=== PATIENT | male | born 1945 | race Caucasian/White ===

== ENCOUNTER 2022-04-15 11:56 | Outpatient (REF) | payer BC, SELFPAY ==
[2022-04-15 13:47] LABS: SARS PCR* Negative SARS-CoV-2 (Negative)
== END 2022-04-15 11:57 | disposition home or self-care (01) ==
LOC: NPINS 11:56
PROVIDERS: PCP Family Medicine; Visit Provider Podiatrist
DX: Z20.822 Contact with and (suspected) exposure to COVID-19 (principal)
CPT/HCPCS: 87635

== ENCOUNTER 2022-04-18 07:50 | Day surgery (SDC) | payer BC, SELFPAY ==
[2022-04-18 08:18] VITALS: BMI 40.1
[2022-04-18] MEDS: SODIUM CHLORIDE 0.9 % (FLUSH) 10 ML SYRINGE IVF (08:35)
[2022-04-18] MEDS: LACTATED RINGERS 1000 ML 1,000 ML 100 ML IV (08:35)
[2022-04-18 08:39] VITALS: BP 108/74; PULSE 60; RESP 16; TEMP 37.1; O2SAT 96
[2022-04-18] MEDS: BUPIVACAINE 0.5% 30 ML INJECTION (10:00)
[2022-04-18] MEDS: CEFAZOLIN 2 GM INJ IVP (10:02)
--- NOTE | 2022-04-18 10:34 | PM.GSPRC ---
Operative Note Date of procedure: 04/18/22 Type of Procedure: 1. Excision of soft tissue mass left foot 2. Excision of soft tissue mass left great toe Procedure Description: Preoperative diagnosis: Soft tissue mass left foot x2 Postoperative diagnosis: Soft tissue mass left foot x2 After discussing the risks and benefits of the procedure, the patient signed informed consent.? The operative site was marked and the patient was brought to the operating room and placed on the operating table in supine position.? Care was taken to pad the patient's pressure points.?? The patient was then given sedation by anesthesia. 30 mL 0.5% Marcaine plain was injected into the left foot.?? The operative site was then prepped and draped in the usual sterile fashion.? A time-out was then performed. Left foot was exsanguinated and the tourniquet inflated. Linear incision is made over the plantar medial aspect of 1st metatarsal head. Incision was carried down through skin subcutaneous tissues. Blunt dissection was carried down to the mass. The mass appeared to be well encapsulated and was from surrounding tissues. Mass sent to pathology in formalin and measured 2 cm x 1.5 cm x 1 cm. Wound was thoroughly irrigated with normal sterile saline. Incision was closed with 3-0 nylon. Linear incision is made over the plantar medial aspect of the IPJ of the hallux. Incision was carried down through skin subcutaneous tissues. Blunt dissection was carried down to the mass. The mass appeared to be well encapsulated and was from surrounding tissues. Mass was sent to pathology in formalin and measured 1 cm x 1 cm x 1 cm. Wound was thoroughly irrigated with normal sterile saline. Incision was closed with 3-0 nylon. Sterile dressings were then applied. Tourniquet was released and normal cap refill time returned to all digits. The patient was then woken and transported to the recovery area in stable condition. He tolerated the procedure and anesthesia well. He will be discharged per Anesthesia. He was given both written and verbal postop instructions. He is given [place] for pain. He is to use a walker with weight-bearing as tolerated to the left foot shifting weight laterally. To follow-up in 2 days. ? Findings: Soft tissue mass x2 sent to pathology. Anesthesia: MAC and local Surgeon: Kevin Moreno DPM Estimated blood loss (mL): 2 Condition: stable Disposition: same day
[2022-04-18 10:35] VITALS: BP 113/70; PULSE 60; RESP 16; TEMP 36.3; O2SAT 95
--- NOTE | 2022-04-18 10:41 | W.ANESCHARGE ---
Anesthesia Charges Start Date/Time Anesthesia Start Date: 04/18/22 Anesthesia Start Time: 09:43 Stop Date/Time Anesthesia Stop Date: 04/18/22 Anesthesia Stop Time: 10:38 Summary Emergency: No Extremes of Age: Over 70-CPT 66324
--- NOTE | 2022-04-18 10:46 | W.ANESCHARGE ---
Anesthesia Charges Start Date/Time Anesthesia Start Date: 04/18/22 Anesthesia Start Time: 09:43 Stop Date/Time Anesthesia Stop Date: 04/18/22 Anesthesia Stop Time: 10:38 Summary Emergency: No Extremes of Age: Over 70-CPT 41027
[2022-04-18 10:51] VITALS: BP 111/69; PULSE 55; RESP 16; O2SAT 93
[2022-04-18 11:00] VITALS: BP 129/70; PULSE 56; RESP 16; O2SAT 93
[2022-04-18 11:15] VITALS: BP 114/71; PULSE 52; RESP 16; O2SAT 95
[2022-04-18 11:30] VITALS: PULSE 54; RESP 16; O2SAT 99
== END 2022-04-18 11:35 | disposition home or self-care (01) ==
PROVIDERS: PCP Family Medicine; Visit Provider Podiatrist
PROC: (CPT 28039; principal; 2022-04-18 09:00)
DX: M06.372 Rheumatoid nodule, left ankle and foot (principal)
CPT/HCPCS: 28039 ×2; 01470; 88305; 99100; J0690; J2250; J2704; J3010; J3490; J7120

== ENCOUNTER 2023-08-22 09:55 | Emergency (ER) | payer BC, SELFPAY ==
[2023-08-22] VITALS (13 sets, daily range): BP systolic 99–149; BP diastolic 72–93; PULSE 70–81; RESP 14–32; TEMP 36.8; O2SAT 93–98; BMI 36.9
--- NOTE | 2023-08-22 10:46 | PC.NURSE ---
pt had three teeth extracted on , last night began having severe chills, right groin pain that hurt to roll over or move in bed. history of quadruple bypass, stents. right leg unable to move without pain, tender to palpate/push on right groin. Pt also states he began having intermittent, nonproductive cough.
--- NOTE | 2023-08-22 10:49 | PC.NURSE ---
pt denies chest pain or shortness of breath. right hip/groin pain increased pain with any movement, rotation, pt has RA. Denies injury.
--- NOTE | 2023-08-22 10:50 | CRLHL7_ITS ---
For Patients: As a result of the Cures Act, medical imaging exams and procedure reports are released immediately into your electronic medical record. You may view this report before your referring provider. If you have questions, please contact your health care provider. Indication: Hip pain Technique: Pelvis and right hip 2 views Comparison: None Findings: Joint space narrowing and spurring of both hips, right greater than left. No fracture. Vascular calcifications. No suspicious intrinsic lesion. Mild degenerative changes SI joints. Degenerative changes lower lumbar spine. Impression: Moderate degenerative joint disease right hip. No acute fracture. Dictated by Andrew Boles MD @ 08/22/2023 11:41:56 AM (Electronically Signed)
--- NOTE | 2023-08-22 10:51 | ED_ITS ---
HPI - General Adult General Date Seen: 08/22/23 Chief complaint: Groin Pain Stated complaint: chills, right leg pain/weakness Time Seen by Provider: 08/22/23 10:36 Source: patient and family Mode of arrival: wheelchair Limitations: no limitations History of Present Illness HPI narrative: Patient is the 78-year-old gentleman who presents here for right groin pain. He says he can not even roll over in the bed, he has trouble bearing weight on his right side is brought in by wheelchair, he had some chills last night, he called his dentist, as he had 3 tooth extractions done a week ago, he thought possibly this was from this. Least the chills. His dentist did not think so in wanted him evaluated. He describes no overt fever, the right hip pain he has had for some time, although it seems worse today. He has never been told that he has an issue with his hip her back, has multiple medical issues however including: Heart disease, previous CABG with stents. Rheumatoid arthritis, hypertension Treatments prior to arrival: none Related Data Home Medications Medication Instructions Recorded Confirmed ascorbic acid (vitamin C) 500 mg 500 mg PO DAILY 04/15/22 08/22/23 capsule,extended release (Vitamin C) aspirin 81 mg chewable tablet 81 mg PO DAILY 04/15/22 08/22/23 carboxymethylcellulose sodium 0.5 1 - 2 drp ophthalmic (eye) DAILY 04/15/22 08/22/23 % eye drops (Refresh Tears) clopidogrel 75 mg tablet (Plavix) 75 mg PO DAILY 04/15/22 08/22/23 folic acid 800 mcg tablet 800 mcg PO DAILY 04/15/22 08/22/23 furosemide 20 mg tablet (Lasix) 20 mg PO DAILY 04/15/22 08/22/23 gabapentin 100 mg capsule 200 mg PO QHS 04/15/22 08/22/23 (Neurontin) hydroxychloroquine 200 mg tablet 400 mg PO DAILY 04/15/22 08/22/23 (Plaquenil) lisinopril 2.5 mg tablet 2.5 mg PO DAILY 04/15/22 08/22/23 methotrexate sodium 2.5 mg tablet 12.5 mg PO 2XW 04/15/22 08/22/23 metoprolol tartrate 25 mg tablet 12.5 mg PO BID 04/15/22 08/22/23 nitroglycerin 0.4 mg sublingual 0.4 mg sublingual Q5-15M PRN 04/15/22 08/22/23 tablet rosuvastatin 20 mg tablet (Crestor) 20 mg PO DAILY 04/15/22 08/22/23 vitamin A-vitamin C-vit E-min 1 tab PO BID 04/15/22 08/22/23 tablet vitamin E mixed 400 unit capsule 400 unit PO DAILY 04/15/22 08/22/23 Previous Rx's Medication Instructions Recorded amoxicillin 875 mg-potassium 1 tab PO BID #20 tabs 08/22/23 clavulanate 125 mg tablet oxycodone-acetaminophen 5 mg-325 1 tab PO TID PRN pain #14 tabs 08/22/23 mg tablet Allergies Allergy/AdvReac Type Severity Reaction Status Date / Time leflunomide Allergy Diarrhea Verified 04/18/22 08:06 Review of Systems Status of ROS: Reports: 10 or more systems reviewed and unremarkable except as noted in History and below [facility] Medical History NSTEMI (non-ST elevated myocardial infarction) ?I21.4 - Non-ST elevation (NSTEMI) myocardial infarction (ICD-10) Class 3 severe obesity due to excess calories with body mass index (BMI) of 40.0 to 44.9 in adult ?E66.01 - Morbid (severe) obesity due to excess calories (ICD-10) ?Z68.41 - Body mass index [BMI] 40.0-44.9, adult (ICD-10) Pyelonephritis ?N12 - Tubulo-interstitial nephritis, not specified as acute or chronic (ICD- 10) Sensorineural hearing loss (SNHL) of both ears ?H90.3 - Sensorineural hearing loss, bilateral (ICD-10) Impaired fasting glucose ?R73.01 - Impaired fasting glucose (ICD-10) Rheumatoid arthritis ?M06.9 - Rheumatoid arthritis, unspecified (ICD-10) CORY (obstructive sleep apnea) ?G47.33 - Obstructive sleep apnea (adult) (pediatric) (ICD-10) Degenerative joint disease of left knee ?M17.12 - Unilateral primary osteoarthritis, left knee (ICD-10) CAD (coronary artery disease) ?I25.10 - Atherosclerotic heart disease of [place] coronary artery without angina pectoris (ICD-10) Edema ?R60.9 - Edema, unspecified (ICD-10) Radial styloid tenosynovitis ?M65.4 - Radial styloid tenosynovitis [[place]] (ICD-10) Lumbago ?M54.50 - Low back pain, unspecified (ICD-10) Unspecified sleep apnea ?G47.30 - Sleep apnea, unspecified (ICD-10) Other and unspecified hyperlipidemia ?E78.5 - Hyperlipidemia, unspecified (ICD-10) Unspecified essential hypertension ?I10 - Essential (primary) hypertension (ICD-10) Surgical History Hx of colonoscopy ?Z98.890 - Other specified postprocedural states (ICD-10) Hx of coronary artery bypass graft ?Z95.1 - Presence of aortocoronary bypass graft (ICD-10) Social History Smoking Status: Former smoker What tobacco products do you use: cigarettes Smoking packs per day: 1.5 Smoking cigarettes per day: 30.0 Years smoked: 35 Smoking pack-years: 52.50 Smoking quit date/years: >15 years ago and pipe Do you use any of these nicotine containing products: None How often do you have a drink containing alcohol: monthly or less Alcohol type: beer and wine How many standard drinks containing alcohol do you have on a typical day: 1 or 2 How often do you have six or more drinks on one occasion: Never AUDIT-C Alcohol total score: 1 Non-prescribed substance use: denies use Caffeine: Yes (RARE) service: No Exam Narrative: Exam Narrative: Patient is the resting in room a, he appears to be in no distress, little hard hearing, large with an elevated BMI. His right hip, with any sort of flexion, or internal external rotation causes him to cry out in pain, his right inguinal crease shows no masses, there is no hernias, he does have some yeast dermatitis, no testicular pain, masses, notable. He has no pain on palpation of his abdominal region, his right lower quadrant, or on his right flank region. Chest is good air entry bilaterally with no wheezes crackles noted his heart sounds are normal. TMs are normal, his oropharynx is normal. There are holes were he has had tooth extraction on his left upper molars. They appear to be healing well, with really no pain around there. Const: Vital Signs, click to edit/add: Vital Signs - 24 hr 08/22/23 10:24 08/22/23 11:34 08/22/23 11:45 Temperature 98.2 F Pulse Rate 74 75 Pulse Rate [Pulse Oximeter] 81 Respiratory Rate 32 H Blood Pressure Blood Pressure [Ri ght Forearm] 99/72 Pulse Oximetry 95 94 95 Oxygen Delivery Me thod Room Air 08/22/23 12:00 08/22/23 12:15 08/22/23 12:30 Temperature Pulse Rate 71 71 73 Pulse Rate [Pulse Oximeter] Respiratory Rate Blood Pressure Blood Pressure [Ri ght Forearm] Pulse Oximetry 93 97 97 Oxygen Delivery Me thod 08/22/23 12:51 08/22/23 12:52 08/22/23 13:00 Temperature Pulse Rate 75 71 Pulse Rate [Pulse Oximeter] Respiratory Rate 14 Blood Pressure 149/91 H Blood Pressure [Ri ght Forearm] Pulse Oximetry 98 97 Oxygen Delivery Me thod 08/22/23 13:15 08/22/23 13:30 08/22/23 13:45 Temperature Pulse Rate 70 72 73 Pulse Rate [Pulse Oximeter] Respiratory Rate Blood Pressure Blood Pressure [Ri ght Forearm] Pulse Oximetry 96 96 98 Oxygen Delivery Me thod Course Course ED Course: He is given a small amount of morphine IV, he reports to me the pain was a lot better he was able to ambulate with his walker to the bathroom with no problems at all. This is his normal state. I was able to move his right hip around with less pain.. I did consider other alternative diagnosis yes is a septic right hip, and also epidural abscess, or deep pelvic abscess, along with inguinal hernia. He does have the known rheumatoid arthritis, and his is CRP could always be elevated although 17 seems a little bit more than it should. I discussed with him in with shared decision making they would like to try some antibiotics, went over the risks benefits side effects of this, Augmentin will be prescribed, I do suggest that we stopped his methotrexate while he is on this. As there is an interaction between the penicillin based on the methotrexate. I also give him a small supply of narcotic medication they can use. And have him follow up with his sports physician Dr. Garcia for recheck and consideration of either cortisone injection or formal follow-up with orthopedics. They were comfortable this plan , we went over signs and symptoms of worsening, and they will follow-up with these occur. Vital Signs Vital signs: Initial Vital Signs Temperature 98.2 F 08/22/23 10:24 Temperature Source Temporal Artery Scan 08/22/23 10:24 Pulse Rate 81 08/22/23 10:24 Pulse Rhythm Regular 08/22/23 10:24 Respiratory Rate 32 H 08/22/23 10:24 Blood Pressure 99/72 08/22/23 10:24 Blood Pressure Mean 81 08/22/23 10:24 Blood Pressure Position Sitting 08/22/23 10:24 Pulse Oximetry 95 08/22/23 10:24 Oxygen Delivery Method Room Air 08/22/23 10:24 Vital Signs Temperature 98.2 F 08/22/23 10:24 Pulse Rate 81 08/22/23 10:24 Respiratory Rate 32 H 08/22/23 10:24 Blood Pressure 99/72 08/22/23 10:24 Pulse Oximetry 95 08/22/23 10:24 Oxygen Delivery Method Room Air 08/22/23 10:24 Temperature 98.2 F 08/22/23 10:24 Pulse Rate 73 08/22/23 13:45 Respiratory Rate 14 08/22/23 13:00 Blood Pressure 149/91 H 08/22/23 12:51 Pulse Oximetry 98 08/22/23 13:45 Oxygen Delivery Method Room Air 08/22/23 10:24 Medications Administered Medications: Discontinued Medications Generic Name Dose Route Start Last Admin Trade Name Freq PRN Reason Stop Dose Admin Morphine Sulfate 4 mg 08/22/23 11:05 08/22/23 11:40 Morphine 4 Mg/Ml Inj IVP 08/22/23 11:06 4 mg ONCE ONE Administration Medical Decision Making MDM Narrative Medical decision making narrative: I discussed with the patient, him a little concerned about the chills, I am not so concerned about the right hip, as this seems to be acute on chronic issue. Possibilities of septic hip are entertained however. I do think we should get some x-rays of his right hip, and then also the blood cultures, and a workup for his chills. His initial blood pressure was on the low side. But then I did note that his blood pressure when I came in the room was 150 on 100. Lab Data Lab results reviewed: Yes I reviewed the patient's lab results Labs: Lab Results 08/22/23 08/22/23 08/22/23 Range/Units 11:34 12:50 Unknown WBC 13.36 H (4.50-11.00) K/uL RBC 4.08 L (4.30-5.90) m/uL Hgb 13.0 L (13.5-17.5) gm/dL Hct 38.1 (37.0-53.0) % MCV 93 (80-100) fL MCH 32 (26-34) pg MCHC 34 (32-36) gm/dL RDW Coeff of Tim 15.4 (11.5-15.5) % Plt Count 255 (140-440) K/uL Neut % (Auto) 81.4 H (42.0-72.0) % Lymph % (Auto) 6.2 L (20-44) % Sch[place] % (Auto) 12.0 H (0.0-11.0) % Eos % (Auto) 0.0 (0.0-7.0) % Baso % (Auto) 0.1 (0.0-3.0) % Neut # (Auto) 10.90 H (1.7-7.0) K/uL Lymph # (Auto) 0.80 L (0.90-2.90) K/uL Sch[place]icher # (Auto) 1.60 H (0.00-0.90) K/UL Eos # (Auto) 0.00 (0.00-0.50) K/uL Baso # (Auto) 0.00 (0.00-0.30) K/uL Abs Immat Gran (auto) 0.00 (0.00-0.30) K/uL Imm/Tot Granulo (auto) 0.3 % Sodium 136 (135-149) mmol/L Potassium 4.0 (3.6-5.1) mmol/L Chloride 104 (96-114) mmol/L Carbon Dioxide 21 (20-32) mmol/L Anion Gap 11 (7-15) mEq/L BUN 12 (7-30) mg/dL Creatinine 0.7 (0.5-1.5) mg/dL Estimated Creat Clear 60.88 Estimated GFR 94 ml/min Glucose 158 H (60-115) mg/dL Lactate 1.1 (0.5-1.9) mmol/L Calcium 9.3 (8.4-10.6) mg/dL C-Reactive Protein 17.1 H (0.5-1.0) mg/dL Procalcitonin 0.53 H (<0.50) ng/mL Urine Color Yellow (Yellow) Urine Appearance Clear (Clear) Urine pH 6.0 (5.0-8.5) Ur Specific [place] 1.025 (1.000-1.030) Urine Protein 1+ A (Negative) Urine Glucose (UA) Negative (Negative) Urine Ketones Negative (Negative) Urine Blood Negative (Negative) Urine Nitrite Negative (Negative) Urine Bilirubin Negative (Negative) Urine Urobilinogen 1.0 (0.2-1.0) Ur Leukocyte Esterase Trace A (Negative) Urine RBC 2-5 A (0-2) Urine WBC 5-10 A (0-5) Ur Squamous Epith Cells Moderate A (None-Few) Urine Bacteria Few A (None) SARS-CoV-2 (PCR) Negative SARS-CoV-2 (Negative) Influenza Type A (PCR) Negative PCR FLU A (Negative) Influenza Type B (PCR) Negative PCR FLU B (Negative) RSV (PCR) Negative PCR RSV (Negative) White count is minimally elevated at 13, with a predominance in neutrophils, urinalysis does show evidence of slight UTI. C-reactive protein and procalcitonin were elevated. I have no old values with the CRP to compare Imaging Data Hip x-ray: Attestation: I have reviewed the pertinent imaging results. My impression: Degenerative changes of the right hip, I do not see acute effusion I do not see fractures. Radiologist's impression: Patient: ISAAC DOHERTY Facility:[facility] Patient ID:?[id number] Site Patient ID:?[id number]. Site :?[id number] Study:?XRay Pelvis Right HIP 2V-08/22/2023 11:29:22 AM Ordering Physician:Chris Cox Final Report: Indication: Hip pain Technique: Pelvis and right hip 2 views Comparison: None Findings: Joint space narrowing and spurring of both hips, right greater than left. No fracture. Vascular calcifications. No suspicious intrinsic lesion. Mild degenerative changes SI joints. Degenerative changes lower lumbar spine. Impression: Moderate degenerative joint disease right hip. No acute fracture. Dictated by Andrew Boles MD @ 08/22/2023 11:41:56 AM (Electronic Signature) I did review with the radiologist, there was no evidence of fracture, he did not see evidence of an effusion also. Discharge Plan Discharge Clinical Impression: Chronic hip pain, Urinary tract infection, Chills, History of tooth extraction, History of rheumatoid arthritis Patient Disposition: Home w/ Parent or Adult Condition: Improved Instructions: Urinary Tract Infection in Men (DC), Hip Pain (ED), Pain Management in Older Adults (DC), Narcotic Safety (ED), Opioid Safety (ED), Total Hip Replacement (DC), Non-pharmacological Pain Management Therapies for Adults (ED) Additional Instructions: As I discussed with you we will put you on some Augmentin for the next 10 days, this is an antibiotic, please use a lot of probiotics with this. I also give you a small supply of narcotic medication you can use. Please follow-up with here for suggestion of possibly a cortisone shot in the right hip. I also think following up with or Carol from orthopedics. I do think if your worsening with fevers chills weakness, low blood pressure, or other issue should come back and be seen. I do not know if this is a reflection of your recent tooth extraction but we will uvula antibiotic to cover for both. Usual walker or your cane when you walk. You should stay off the methotrexate while you take the antibiotic as there is an interaction with this. He may restart her methotrexate 2 days after finishing up the antibiotic. Activity Level: Light activity Discharge Diet: Regular Prescriptions: New amoxicillin-pot clavulanate 875-125 mg tablet 1 tab PO BID Qty: 20 0RF Rx Instructions: Hold Methotrexate while on the Augmentin , may restart 2 days after finishing oxycodone-acetaminophen 5-325 mg tablet 1 tab PO TID PRN (Reason: pain) Qty: 14 0RF No Action ascorbic acid (vitamin C) [Vitamin C] 500 mg capsule, extended release 500 mg PO DAILY aspirin 81 mg tablet,chewable 81 mg PO DAILY carboxymethylcellulose sodium [Refresh Tears] 0.5 % drops 1 - 2 drp ophthalmic (eye) DAILY clopidogrel [Plavix] 75 mg tablet 75 mg PO DAILY folic acid 800 mcg tablet 800 mcg PO DAILY furosemide [Lasix] 20 mg tablet 20 mg PO DAILY Hold Instructions: dizzy gabapentin [Neurontin] 100 mg capsule 200 mg PO QHS hydroxychloroquine [Plaquenil] 200 mg tablet 400 mg PO DAILY lisinopril 2.5 mg tablet 2.5 mg PO DAILY methotrexate sodium 2.5 mg tablet 12.5 mg PO 2XW metoprolol tartrate 25 mg tablet 12.5 mg PO BID nitroglycerin 0.4 mg tablet, sublingual 0.4 mg sublingual Q5-15M PRN Rx Instructions: do not exceed 3 doses per episode rosuvastatin [Crestor] 20 mg tablet 20 mg PO DAILY vitamin E mixed 400 unit capsule 400 unit PO DAILY vitamin A-vitamin C-vit E-min Tablet 1 tab PO BID Follow Up/Referrals: Charline Wyatt MD [Primary Care Provider] - Stand Alone Forms: [facility] Info Instructions
--- OUTSIDE RECORDS SUMMARY | 2023-08-22 11:11 | XMS_ITS | Data Portability ---
Author Name Unknown Address [address] [place] [address] Phone [phone] Organization [facility] Address [address] [place] [address] Care Team Providers Care Real Estate Attorney Name Role Phone [facility] Primary Care Provider [facility]) Referring Provider Assessment Encounter Date Assessment Date Assessment LastModified by Organization Details LastModified Time 10/25/2022 10/25/2022 77 year old male with a history of nephrolithiasi s, benign prostatic hyperplasia with lower urinary tract symptoms, erectile dysfunction. [email or web address] Not available 10/25/2022 12:51:54 Plan of Treatment Reminders Order Date Submit Date Provider Last Modified By Organization Details Last Modified Time Details Appointments ESTABLISH ED 15 2023 09:30A M Bobby Bright MD Not available Not available Not available Lab None recorded. Referral None recorded. Procedures None recorded. Surgeries None recorded. Imaging US, kidney - Due October 20232022 023 ATHENAFAX [facility], [address], [place], [address], 05/11/2023 15:48:42 Medication Orders None recorded. Patient TargetsNo targets recorded. Patient Instructions Encounter Date Encounter Id Patient Instructions Last Modified By Organization Details Last Modified Time 10/25/2022 [id number] Nephrolithiasis: He remains stone free. He is asymptomatic. We will continue to follow him clinically. Return in 1 year with renal ultrasound. Erectile dysfunction: He is not interested in medical therapy at this point, particularly due to his nitrates. We will monitor. Benign prostatic hyperplasia with lower urinary tract symptoms: He does have obstructive symptoms. We discussed risks/benefits of starting alpha-juan m therapy, but at this point he is not bothered enough to do this. [email or web address] Not available 10/25/2022 12:53:32 Reason for Referral None Reported. Results Created Date Observation Date Name Description Value Unit Range Abnormal Flag LastModifiedBy Organization Detail LastModifiedTime 09/24/19 23 09/22/2022 US, kidne y No observ ation record ed. [facility] [address], [place], [address], 09/27/2022 09:04:51 Result Notes None recorded. Procedures Surgical History Date Name Laterality Status Provider Name and Address Organization Details Recorded Time 07/17/19 Diagnostic colonoscopy completed Not Available Health Note 10/24/2022 12:07:29 Insert epicard eltrd open completed Not Available Health Note 10/24/2022 12:07:29 Fragmenting of kidney stone completed Not Available Health Note 10/24/2022 12:07:29 Removal of sperm duct(s) completed Not Available Health Note 10/24/2022 12:07:29 Imaging Results Imaging Date Name Status LastModified by Organiz ation Details LastModified Time 09/22/2022 US, kidney [facility] [address], [place], [address], 09/27/2022 09:04:51 Procedure Notes None recorded. Medical Equipment None Reported. Allergies Allergen ID Allergen Name Allergen Category Reaction Reaction Severity Criticality Documentation Date Start Date Code Code System Note Provider Name and Address Organization Details Recorded Time 266700 leflunomi de medicatio n other Not available Not available 10/24/2022 92269 RxNorm diare hunter Not Available Health Note 12:07:29 Medications Name Sig Start Date Stop Date Status Note LastModified by Organization Details LastModified Time metformin 500 mg tablet 10/25 completed HN: Patient reports no longer taking Not Available Not Available Not Available hydrocodo ne 5 mg-acetam inophen 325 mg tablet 10/25 completed HN: Patient reports no longer taking Not Available Not Available Not Available clopidogr el 75 mg tablet active Not Available Not Available Not Available methotrex ate sodium 2.5 mg tablet active Not Available Not Available Not Available cephalexi n 500 mg capsule 10/25 completed HN: Patient reports no longer taking Not Available Not Available Not Available nitroglyc kavita 0.4 mg sublingua l tablet active Not Available Not Available Not Available mupirocin 2 % topical ointment APPLY TO EXCISION SITE 1-2 TIMES DAILY UNTIL WELL HEALED 10/25 completed HN: Patient reports no longer taking Not Available Not Available Not Available furosemid e 20 mg tablet active Not Available Not Available Not Available gabapenti n 100 mg capsule active Not Available Not Available Not Available hydroxych loroquine 200 mg tablet active Not Available Not Available Not Available lisinopri l 2.5 mg tablet active Not Available Not Available Not Available rosuvasta tin 20 mg tablet active Not Available Not Available Not Available metoprolo l tartrate 25 mg tablet active Not Available Not Available Not Available Vitals Date Recorded Body weight Body height Body mass index (BMI) Provider Name and Address Organization Details Last Updated DateTime 10/25/2022 293654.7768 5891 g 177.8 cm 35.9 kg/m2 Not Available Health Note 10/25/2022 08:15:59 Social History Question Answer Notes LastModified by Organizat ion Details LastModified Time Tobacco Smoking Status Former Smoker Not Available Health Note 10/24/2022 12:07:30 What Is Your Level Of Alcohol Consumption? Occasional [email or web address] Information not available 10/24/2022 What Is Your Level Of Caffeine Consumption? None [email or web address] Information not available 10/24/2022 How Much Tobacco Do You Chew? None [email or web address] Information not available 10/24/2022 Do You Or Have You Ever Used E-cigarettes Or Vape? Never Used Electronic Cigarettes [email or web address] Information not available 10/24/2022 When Did You Quit Smoking? 16+yearscole akins Information not available 10/25/2022 What Was The Date Of Your Most Recent Tobacco Screening? 10/25/2022 [email or web address] Information not available 10/24/2022 What Is Your Relationship Status? [email or web address] Information not available 10/24/2022 Are You Sexually Active? No [email or web address] Information not available 10/24/2022 Do You Or Have You Ever Used Smokeless Tobacco? Never Used Smokeless Tobacco [email or web address] Information not available 10/24/2022 Do You Use Any Illicit Or Recreational Drugs? No [email or web address] Information not available 10/24/2022 How Many Years Have You Smoked Tobacco? 35 [email or web address] Information not available 10/24/2022 Sex: Male Functional Status None recorded. Mental Status None recorded. Family History Relationship Description Onset Age of this Age Resolved Age Notes Father Family history of ca rdiac disorder Notes:Mother has liver cance r Medical History Condition Response High Blood Pressure N Kidney Stones Y Lung Disease N Depression N GERD/Acid Reflux N Sexually Transmitted Infection N Diabetes N Bleeding Disorder N Cancer N High Cholesterol N Heart Disease Y Immunizations Vaccine Type Date Status Provider Name and Address Organization Details Recorded Time pneumococcal, unspecified formulation 04/16/2022 completed Yane aguilar [facility] 02/10/2023 11:52:36 influenza, trivalent, adjuvanted 04/07/2017 [facility] 11:52:36 influenza, trivalent, adjuvanted 04/26/2018 [facility]10[facility]2023 11:52:36 zoster recombinant 07/30/2020 [facility]/10[facility]2023 11:52:36 zoster recombinant 04/23/2020 [facility]/10/2023 11:52:36 Influenza vaccine, quadrivalent, adjuvanted 04/07/2022 completed Yane aguilar [facility] 02/10/2023 11:52:36 Influenza vaccine, quadrivalent, adjuvanted 04/21/2021 completed Yane aguilar [facility] 02/10/2023 11:52:36 Influenza vaccine, quadrivalent, adjuvanted 04/23/2020 [facility]/10/2023 11:52:36 COVID-19, mRNA, LNP-S, PF, 30 mcg/0.3 mL dose 09/09/2020 completed Yane Lopez null, [facility] 02/10/2023 11:52:36 COVID-19, mRNA, LNP-S, PF, 30 mcg/0.3 mL dose 09/30/2020 completed Yane Lopez null, [facility] 02/10/2023 11:52:36 COVID-19, mRNA, LNP-S, PF, 30 mcg/0.3 mL dose 04/23/2021 completed Yane Lopez null, [facility] 02/10/2023 11:52:36 COVID-19, mRNA, LNP-S, PF, 30 mcg/0.3 mL dose, willie-sucrose 12/16/2021 [facility]2023 11:52:36 pneumococcal polysaccharide PPV23 08/09/2010 [facility]/10/2023 11:52:36 Tdap 02/26/2016 [facility]/10/2023 11:52:36 Pneumococcal conjugate PCV 13 03/30/2015 completed Yane Lopez [facility] 02/10/2023 11:52:36 zoster live 07/03/2007 completed Yane Lopez [facility] 02/10/2023 11:52:36 Influenza, high dose seasonal 03/30/2015 [facility]/10/2023 11:52:36 Influenza, high dose seasonal 04/02/2014 [facility]/10/2023 11:52:36 Influenza, high dose seasonal 04/28/2016 [facility]/10/2023 11:52:36 Influenza, seasonal, injectable 04/17/2008 [facility]/10/2023 11:52:36 Influenza, seasonal, injectable 04/22/2009 completed [facility]/10/2023 11:52:36 Influenza, seasonal, injectable 05/02/2003 [facility]/2023 11:52:36 Influenza, seasonal, injectable 05/14/2010 [facility]/10/2023 11:52:36 Influenza, seasonal, injectable 05/23/2006 completed [facility]/10/2023 11:52:36 Influenza, seasonal, injectable 05/30/2013 completed Yaneeffie MorrisonLopez [facility] 02/10/2023 11:52:36 Influenza, seasonal, injectable, preservative free 04/15/2011 [facility]/10/2023 11:52:36 Td (adult), 5 Lf tetanus toxoid, preservative free, adsorbed 05/23/2006 completed [facility] 02/10/2023 11:52:36 influenza, injectable, quadrivalent, preservative free 04/05/2019 completed Yane Lopez [facility] 02/10/2023 11:52:36 Past Encounters Encounter ID Performer Location Encounter Start Date Encounter Closed Date Diagnosis/Indication [id number] Bobby Bright MD [facility] [address] [place] [address] 10/25/2022 08:15:52 10/25/2022 13:17:05 Primary erectile dysfunction History of calculus of kidney Lower urinary tract symptoms due to benign prostatic hypertrophy Health Concerns Section Related Observation LastModified by Organization Detai ls LastModified Time None Recorded Concern Status LastModified by Organization Details LastModified Time None Recorded Advance Directives Directive None Recorded Payers Encounter Date Sequence Insurance Name Policy Number Policy Wilson Covered Member ID Wilson Member ID Guarantor Name 10/25/2022 1 [place] [employer] Tre Lott [id number] Tre Lott Notes Date Note Type Note Provider Name and Address Organization Details Recorded Time 10/25/2022 text/html HPI Notes: This is a 77 year old male who is here for the ongoing management of nephrolithiasis. He is status post cystoscopy, left ureteroscopy, laser lithotripsy, and left ureteral stent placement on 08/05/2019. Stone analysis: calcium oxalate He underwent a surveillance renal ultrasound on 07/20/2022 which showed no new stones or hydronephrosis. He denies gross hematuria or flank pain. He has benign prostatic hyperplasia with lower urinary tract symptoms. He is not on medical therapy and doesn't desire to. He has a history of erectile dysfunction. He is not currently on medical therapy for this. He is unable to take sildenafil due to his nitrates for chest pain. He is fine with this. Bobby Bright MD [address] [place] [address],[address], [place], [address], [facility] 10/25/2022 12:54:44
--- OUTSIDE RECORDS SUMMARY | 2023-08-22 11:11 | XMS_ITS | Encounter Summary ---
Author Name Unknown [facility] Address [address], [place] [address] Care Team Providers Care In Home Aide Name Role Phone Mel Delacruz MD Primary Care Pr ovider Reason for Visit * Reason Onset Date Comments Refill 01/24/2023 Encounter Details Date Type Department Care Team Description 01/24/2023 Refill [place] [id number] Rheumatology [address] [facility] [place], [place] [id number] Luigi Hess MD [address] [place] [address] Refill Social History Tobacco Use Types Packs/Day Years Used Date Smoking Tobacco: Former Smokeless Tobacco: Never Alcohol Use Standard Drinks/Week Comments Yes 0 (1 standard drink = 0.6 oz pur e alcohol) very little Sex and Gender Information Value Date Recorded Sex Assigned at Not on file Gender Identity Not on file Sexual Orientation Not on file documented as of this encounter Nursing Notes * Kiara Lopes RN - 01/25/2023 7:36 AM CDT LV: 05/09/22 NV: n/a No eye exam on file, apparently patient reports yearly eye exams. Stephanie quintero sent. Renewed medication per medication refill standing order. Requested Prescriptions Signed Prescriptions Disp Refills hydroxychloroquine (PLAQUENIL) 200 MG tablet 180 Tablet 0 Sig: Take 1 Tablet (200 mg) by mouth two times a day. EYE EXAM NEEDED FOR REFILLS Authorizing Provider: LUIGI HESS Ordering User: KIARA LOPES documented in this encounter Plan of Treatment Not on file documented as of this encounter Visit Diagnoses Not on filedocumented in this encounter Care Teams In Home Aide Relationship Specialty Start Date End Date Mel Delacruz MD [address] [place] [address] PCP - General 10/18/10 documented as of this encounter
--- OUTSIDE RECORDS SUMMARY | 2023-08-22 11:11 | XMS_ITS | Encounter Summary ---
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) Social History Tobacco Use Types Packs/Day Years Used Date Smoking Tobacco: Former Smokeless Tobacco: Never Alcohol Use Standard Drinks/Week Comments Yes 0 (1 standard drink = 0.6 oz pur e alcohol) very little Sex and Gender Information Value Date Recorded Sex Assigned at Not on file Gender Identity Not on file Sexual Orientation Not on file documented as of this encounter Plan of Treatment Not on file documented as of this encounter Procedures Procedure Name Priority Date/Time Associated Diagnosis Comments CBC AND DIFFERENTIAL PANEL Routine 10/25/2022 12:18 PM CDT 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) CREATININE / GFR Routine 10/25/2022 12:1 8 PM CDT 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) COMPLETE BLOOD COUNT-W/DIFF Routine 10/25/2022 12:18 PM CDT 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) AST Routine 10/25/2022 12:18 PM CDT 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) documented in this encounter Results * (ABNORMAL) Complete Blood Count-W/Diff (10/25/2022 12:18 PM [facility]) WBC 6.5 3.5 - 10.5 x10(9)/L 10/25/2022 12:23 PM [facility] RBC 4.08(L) 4.32 - 5.72 x10(12)/L 10/25/2022 12:23 PM [facility] Hemoglobin 13.4(L) 13.5 - 17.5 g/dL 10/25/2022 12:23 PM [facility] HCT 39.9 38.8 - 50.0 % 10/25/2022 12:23 PM [facility] MCV 97.8 80.0 - 100.0 fL 10/25/2022 12:23 PM [facility] MCH 32.8 27.6 - 33.3 pg 10/25/2022 12:23 PM [facility] MCHC 33.6 31.5 - 35.2 g/dL 10/25/2022 12:23 PM [facility] RDW 15.9(H) 11.9 - 15.5 % 10/25/2022 12:23 PM [facility] Platelets 223 150 - 450 x10(9)/L 10/25/2022 12:23 PM [facility] Automated NRBC 0 <=0 /100 WBC 10/25/2022 12:23 PM [facility] Neutrophil Absolute 4.0 1.7 - 7.0 10(9)/L 10/25/2022 12:23 PM [facility] Lymphocyte Absolute 1.4 1.0 - 4.8 10(9)/L 10/25/2022 12:23 PM [facility] Monocyte Absolute 0.8 0.2 - 0.9 10(9)/L 10/25/2022 12:23 PM [facility] Eosinophil Absolute 0.2 0.0 - 0.5 10(9)/L 10/25/2022 12:23 PM [facility] Basophil Absolute 0.0 0.0 - 0.3 10(9)/L 10/25/2022 12:23 PM [facility] Immature Granulocyte % 0.3 0.0 - 0.5 % 10/25/2022 12:23 PM CDT [facility] Blood Venipuncture / Unknown 10/25/2022 12:18 PM CDT 10/25/2022 12:18 PM CDT Luigi Menon MD LAB_1 Performing Organization Address [facility]/ZIP Co de Phone Number [facility] [address] [place] [address], [facility] [phone] * AST - Aspartate Aminotransferase (10/25/2022 12:18 PM CDT) AST (SGOT) 17 10 - 40 U/L 10/25/2022 2:18 PM CDT [facility] Blood Venipuncture / Unknown 10/25/2022 12:18 PM CDT 10/25/2022 12:18 PM CDT Luigi Menon MD LAB_1 Performing Organization Address [facility] Co de Phone Number [facility] [address] [place] [address], [facility] [phone] * CREAT - Creatinine (10/25/2022 12:18 PM CDT) Creatinine 0.80 0.73 - 1.18 mg/dL 10/25/2022 2:18 PM CDT [facility] GFR, Estimated >60 >60 mL/min/1.7 3m2 10/25/2022 2:18 PM CDT [facility] Blood Venipuncture / Unknown 10/25/2022 12:18 PM CDT 10/25/2022 12:18 PM CDT Luigi Menon MD LAB_1 Performing Organization Address [facility]/ZIP Co de Phone Number [facility] [address] [place] [address], [facility] [phone] documented in this encounter Visit Diagnoses Diagnosis 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
--- OUTSIDE RECORDS SUMMARY | 2023-08-22 11:11 | XMS_ITS | Encounter Summary ---
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) CREATININE / GFR Routine 04/18/2023 1:29 PM CDT 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) COMPLETE BLOOD COUNT-W/DIFF Routine 04/18/2023 1:29 PM CDT 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) AST Routine 04/18/2023 1:29 PM CDT 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) documented in this encounter Results * (ABNORMAL) Complete Blood Count-W/Diff (04/18/2023 1:29 PM T) WBC 6.0 3.5 - 10.5 x10(9)/L 04/18/2023 1:48 PM [facility] RBC 4.12(L) 4.32 - 5.72 x10(12)/L 04/18/2023 1:48 PM [facility] Hemoglobin 13.1(L) 13.5 - 17.5 g/dL 04/18/2023 1:48 PM [facility] HCT 40.2 38.8 - 50.0 % 04/18/2023 1:48 PM [facility] MCV 97.6 80.0 - 100.0 fL 04/18/2023 1:48 PM [facility] MCH 31.8 27.6 - 33.3 pg 04/18/2023 1:48 PM [facility] MCHC 32.6 31.5 - 35.2 g/dL 04/18/2023 1:48 PM [facility] RDW 15.9(H) 11.9 - 15.5 % 04/18/2023 1:48 PM [facility] Platelets 271 150 - 450 x10(9)/L 04/18/2023 1:48 PM [facility] Automated NRBC 0 <=0 /100 WBC 04/18/2023 1:48 PM [facility] Neutrophil Absolute 3.4 1.7 - 7.0 10(9)/L 04/18/2023 1:48 PM [facility] Lymphocyte Absolute 1.5 1.0 - 4.8 10(9)/L 04/18/2023 1:48 PM [facility] Monocyte Absolute 0.8 0.2 - 0.9 10(9)/L 04/18/2023 1:48 PM [facility] Eosinophil Absolute 0.3 0.0 - 0.5 10(9)/L 04/18/2023 1:48 PM [facility] Basophil Absolute 0.0 0.0 - 0.3 10(9)/L 04/18/2023 1:48 PM [facility] Immature Granulocyte % 0.5 0.0 - 0.5 % 04/18/2023 1:48 PM CDT [facility] Blood Venipuncture / Unknown 04/18/2023 1:29 PM CDT 04/18/2023 1:29 PM CDT Luigi Menon MD LAB_1 Performing Organization Address [facility]/ZIP Co de Phone Number [facility] [address] [place] [address], [facility] [phone] * AST - Aspartate Aminotransferase (04/18/2023 1:29 PM CDT) AST (SGOT) 12 10 - 40 U/L 04/18/2023 4:42 PM CDT [facility] Blood Venipuncture / Unknown 04/18/2023 1:29 PM CDT 04/18/2023 1:29 PM CDT Luigi Menon MD LAB_1 Performing Organization Address [facility] de Phone Number [facility] [address] [place] [address], [facility] [phone] * CREAT - Creatinine (04/18/2023 1:29 PM CDT) Creatinine 0.80 0.73 - 1.18 mg/dL 04/18/2023 4:42 PM CDT [facility] GFR, Estimated >60 >60 mL/min/1.7 3m2 04/18/2023 4:42 PM CDT [facility] Blood Venipuncture / Unknown 04/18/2023 1:29 PM CDT 04/18/2023 1:29 PM CDT Luigi Menon MD LAB_1 Performing Organization Address [facility]/ZIP Co de Phone Number 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
--- OUTSIDE RECORDS SUMMARY | 2023-08-22 11:11 | XMS_ITS | Encounter Summary ---
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) (Primary Dx); Rheumatoid nodule (HRC); 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 Social History Tobacco Use Types Packs/Day Years Used Date Smoking Tobacco: Former Smokeless Tobacco: Never Alcohol Use Standard Drinks/Week Comments Yes 0 (1 standard drink = 0.6 oz pur e alcohol) very little Sex and Gender Information Value Date Recorded Sex Assigned at Not on file Gender Identity Not on file Sexual Orientation Not on file documented as of this encounter Last Filed Vital Signs Vital Sign Reading Time Taken Comments Blood Pressure 118/66 05/22/2023 9:40 AM ASSOCIATE PROFESSOR OF ECONOMICS Pulse 50 05/22/2023 9:40 AM ASSOCIATE PROFESSOR OF ECONOMICS Temperature - - Respiratory Rate - - Oxygen Saturation - - Inhaled Oxygen Concentration - - Weight 116.6 kg (257 lb) 05/22/2023 9:40 AM ASSOCIATE PROFESSOR OF ECONOMICS Height - - Body Mass Index 38.5 10/22/2018 1:18 PM CDT documented in this encounter Progress Notes * Luigi Menon MD - 05/22/2023 9:45 AM CST RHEUMATOLOGY RECHECK This note was generated with voice activated construction technician software and may contain typographical and word substitution errors. CC: Follow-up seropositive rheumatoid arthritis, osteoarthritis of the left knee, lumbar spondylosis HPI: I initially saw him in October,, he transferred his care from [facility] because we were closer Clinic to his home of [place]. He has a history of strong positive rheumatoid factor and CCP in 2009, negative RONEY. He has known lumbar degenerative disc disease and left knee x-ray has shown patellofemoral and tibiofemoral DJD. He came to me on 22.5 mg weekly methotrexate and hydroxychloroquine 200 mg daily. He got diarrhea from leflunomide. He does annual eye exams in [place]. He does note some stiffness in his hands, he can get some soreness in his 2nd MCP joints. When seen in October,, he was getting some more rheumatoid nodules for example on the thumb. We decided at that point increase his hydroxychloroquine from 200 mg daily to 400 mg daily. 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 He ultimately had somerheumatoid nodules removed from his foot in 2021. He has a history of myocardial infarction, had 2 stents placed. He is now on Plavix. This is a 1 year follow-up visit. Lab data April 18, 2023 shows normal creatinine, hemoglobin 13.1, normal AST Interval history is reviewed. He has had some significant skin cancer surgery on the face with a couple of significant Mohs procedures. He has a skin cancer on his nose that may require some radiation treatment through his outside Dermatology Clinic. He states that he did have a hydroxychloroquine eye exam December,. He may have the very early beginning some macular degeneration but they did not express any concerns about his hydroxychloroquine use. We did not get a formal report but he says they are doing things like visual colbert for him. He really denies any significant joint pain or swelling. SH: Nonsmoker PMH: Updated in EMR MEDS: Updated in EMR but notable for: Methotrexate 22.5 mg weekly, hydroxychloroquine 400 mg daily ADR/ALLERGIES: Updated in EMR PAIN & RAPID3: In flowsheet if completed by patient. 3 OBJECTIVE: VS: Per flow sheet. General: NAD. Eyes: Externally clear. Chest: CTA. Musculoskeletal: All 4 limbs are examined. Slight synovial thickening bilateral 2nd MCPs and 5th MCPs but no tenderness, he has some small rheumatoid nodules at the elbows Cutaneous: No rashes, nail fold capillary changes, Raynaud's, or psoriasis ASSESSMENT: 1: History of seropositive nodular rheumatoid arthritis 2: Osteoarthritis left knee 3: Lumbar spondylosis and history of left leg sciatica 4: Chronic detention monitoring with immunomodulatory medication 5: Very infrequent episodes of temporomandibular joint pain 6: Bursitis plantar side of left 1st MTP 7: Coronary artery disease 8: Mild chronic anemia 9: Multiple skin cancers PLAN: 1: Clinically, his rheumatoid arthritis appears well controlled on methotrexate and hydroxychloroquine. We will plan to continue those, he may have some very early macular degeneration according to his ophthalmology provider but at this point they have not express concern about him being on hydroxychloroquine. 2: I have renewed his medications for a year. He will continue CBC AST creatinine roughly every 3 months. I will plan to see him again in 1 year. 3: He is current on flu shot. Dr. 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
--- OUTSIDE RECORDS SUMMARY | 2023-08-22 11:11 | XMS_ITS | Encounter Summary ---
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) CREATININE / GFR Routine 01/30/2023 10:2 3 AM CDT 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) COMPLETE BLOOD COUNT-W/DIFF Routine 01/30/2023 10:23 AM CDT 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) AST Routine 01/30/2023 10:23 AM CDT 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) documented in this encounter Results * (ABNORMAL) Complete Blood Count-W/Diff (01/30/2023 10:23 AM [facility]) WBC 8.2 3.5 - 10.5 x10(9)/L 01/30/2023 10:45 AM [facility] RBC 3.86(L) 4.32 - 5.72 x10(12)/L 01/30/2023 10:45 AM [facility] Hemoglobin 12.5(L) 13.5 - 17.5 g/dL 01/30/2023 10:45 AM [facility] HCT 37.9(L) 38.8 - 50.0 % 01/30/2023 10:45 AM [facility] MCV 98.2 80.0 - 100.0 fL 01/30/2023 10:45 AM [facility] MCH 32.4 27.6 - 33.3 pg 01/30/2023 10:45 AM [facility] MCHC 33.0 31.5 - 35.2 g/dL 01/30/2023 10:45 AM [facility] RDW 15.0 11.9 - 15.5 % 01/30/2023 10:45 AM [facility] Platelets 251 150 - 450 x10(9)/L 01/30/2023 10:45 AM [facility] Automated NRBC 0 <=0 /100 WBC 01/30/2023 10:45 AM [facility] Neutrophil Absolute 5.8 1.7 - 7.0 10(9)/L 01/30/2023 10:45 AM [facility] Lymphocyte Absolute 1.3 1.0 - 4.8 10(9)/L 01/30/2023 10:45 AM [facility] Monocyte Absolute 0.7 0.2 - 0.9 10(9)/L 01/30/2023 10:45 AM [facility] Eosinophil Absolute 0.3 0.0 - 0.5 10(9)/L 01/30/2023 10:45 AM [facility] Basophil Absolute 0.0 0.0 - 0.3 10(9)/L 01/30/2023 10:45 AM [facility] Immature Granulocyte % 0.4 0.0 - 0.5 % 01/30/2023 10:45 AM CDT [facility] Blood Venipuncture / Unknown 01/30/2023 10:23 AM CDT 01/30/2023 10:23 AM CDT Luigi Menon MD LAB_1 Performing Organization Address [facility]/ZIP Co de Phone Number [facility] [address] [place] [address], [facility] [phone] * AST - Aspartate Aminotransferase (01/30/2023 10:23 AM CDT) AST (SGOT) 16 10 - 40 U/L 01/30/2023 11:15 AM CDT [facility] Blood Venipuncture / Unknown 01/30/2023 10:23 AM CDT 01/30/2023 10:23 AM CDT Luigi Menon MD LAB_1 Performing Organization Address [facility] Co de Phone Number [facility] [address] [place] [address], [facility] [phone] * CREAT - Creatinine (01/30/2023 10:23 AM CDT) Creatinine 0.80 0.73 - 1.18 mg/dL 01/30/2023 11:15 AM T [facility] GFR, Estimated >60 >60 mL/min/1.7 3m2 01/30/2023 11:15 AM CDT [facility] Blood Venipuncture / Unknown 01/30/2023 10:23 AM CDT 01/30/2023 10:23 AM CDT Luigi Menon MD LAB_1 Performing Organization Address [facility]/ZIP Co de Phone Number [facility] [address] [place] [address], [facility] [phone] documented in this encounter Visit Diagnoses Diagnosis 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
--- OUTSIDE RECORDS SUMMARY | 2023-08-22 11:11 | XMS_ITS | Encounter Summary ---
Author Name Unknown Organization [facility] Address [address], [place] [address] Care Team Providers Care Surgical Instrument Maker Name Role Phone Mel Delacruz MD Primary Care Pr ovider Reason for Visit * Reason Onset Date Comments Refill 09/19/2022 Encounter Details Date Type Department Care Team Description 09/19/2022 Refill [place] [address] Rheumatology [address] [facility] [place], [place] [id number] Luigi Hess MD [address] [place] [address] Refill Social History Tobacco Use [...] Nursing Notes * Kiara Lopes RN - 09/19/2022 2:51 PM CST Filled for one month as labs are past due. Renewed medication per medication refill standing order. Requested Prescriptions Signed Prescriptions Disp Refills methotrexate 2.5 MG tablet 36 Tablet 0 Sig: TAKE 9 TABLETS BY MOUTH ONCE WEEKLY. CONTINUE MONITORING LABS EVERY 3 MONTHS. LABS NEEDED FOR REFILLS Authorizing Provider: LUIGI HESS Ordering User: KIARA LOPES TEACHER * Christine Resendez RN - 09/19/2022 9:47 AM CST Patient is requesting for a refill on their Methotrexate. Last visit: 05/09/23 Future visit: None Lab Results Component Value Date WBC 6.6 05/09/2022 RBC 4.21 (L) 05/09/2022 Hemoglobin 13.4 (L) 05/09/2022 HCT 41.0 05/09/2022 MCV 97.4 05/09/2022 RDW 15.5 05/09/2022 Platelets 243 05/09/2022 Lab Results Component Value Date Creatinine 0.80 05/09/2022 Lab Results Component Value Date AST (SGOT) 16 05/09/2022 Patient states he will be going the lab this week to get his labs done. If appropriate please e-scribe rx to pharmacy. TEACHER documented in this encounter Plan of Treatment Not on file documented as of this encounter Visit Diagnoses Not on filedocumented in this encounter Care Teams Surgical Instrument Maker Relationship Specialty Start Date End Date Mel Delacruz MD [address] [place] [address] PCP - General 10/18/10 documented as of this encounter
--- OUTSIDE RECORDS SUMMARY | 2023-08-22 11:11 | XMS_ITS | Encounter Summary ---
Author Name Unknown Organization [facility] Address [address] [address] Care Team Providers Care Test Cell Technician Name Role Phone Mel Delacruz MD Primary Care Pr ovider Reason for Visit * Reason Comments Refill Encounter Details Date Type Department Care Team Description 05/13/2023 Refill [place] [address] Rheumatology [address] [facility] [place] [address] Luigi Hess MD [address] [place], [place] [id number] Refill Social History Tobacco Use Types Packs/Day [...] Nursing Notes * Kiara Lopes RN - 05/15/2023 9:13 AM CDT [place]: 05/09/22 NV: 05/22/23 [facility] eye exam December,, no toxicity by patient report. [employer] message sent to patient 01/25/23 that an eye exam is needed for refills, does not appear onehas been. Short fill through upcoming appointment. Renewed medication per medication refill standing order. Requested Prescriptions Signed Prescriptions Disp Refills hydroxychloroquine (PLAQUENIL) 200 MG tablet 60 Tablet 0 Sig: Take 1 Tablet (200 mg) by mouth two times a day. Authorizing Provider: LUIGI HESS Ordering User: KIARA LOPES documented in this encounter Plan of Treatment Not on file documented as of this encounter Visit Diagnoses Not on filedocumented in this encounter Care Teams Test Cell Technician Relationship Specialty Start Date End Date Mel Delacruz MD [address] [place] [address] PCP - General 10/18/10 documented as of this encounter
--- OUTSIDE RECORDS SUMMARY | 2023-08-22 11:11 | XMS_ITS | Encounter Summary ---
Author Name Unknown Organization [facility] Address [address], [place] [address] Care Team Providers Care Mold Injector Name Role Phone Mel Delacruz MD Primary Care Pr ovider Reason for Visit * Reason Comments Refill Encounter Details Date Type Department Care Team Description 03/30/2023 Refill [place] [address] Rheumatology [address] [place] [address] Luigi Hess MD [address] [place] [address] Refill Social History Tobacco Use [...] as of this encounter Nursing Notes * Christine King RN - 03/31/2023 7:04 AM CDT Last visit: 05/09/22 Future visit: 05/22/23 Lab Results Component Value Date WBC 8.2 01/30/2023 RBC 3.86 (L) 01/30/2023 Hemoglobin 12.5 (L) 01/30/2023 HCT 37.9 (L) 01/30/2023 MCV 98.2 01/30/2023 RDW 15.0 01/30/2023 Platelets 251 01/30/2023 Lab Results Component Value Date Creatinine 0.80 01/30/2023 Lab Results Component Value Date AST (SGOT) 16 01/30/2023 Renewed medication per medication refill standing order. Requested Prescriptions Signed Prescriptions Disp Refills methotrexate 2.5 MG tablet 108 Tablet 0 Sig: TAKE 9 TABLETS [22.5MG] BY MOUTH ONCE WEEKLY [CONTINUE MONITORING LABS EVERY 3 MONTHS].FURTHER REFILLS AFTER UPCOMING APPOINTMENT ON 05/22/23 Authorizing Provider: LUIGI HESS Ordering User: CHRISTINE KING documented in this encounter Plan of Treatment Not on file documented as of this encounter Visit Diagnoses Not on filedocumented in this encounter Care Teams Mold Injector Relationship Specialty Start Date End Date Mel Delacruz MD [address] [place] [address] PCP - General 10/18/10 documented as of this encounter
--- OUTSIDE RECORDS SUMMARY | 2023-08-22 11:11 | XMS_ITS | Encounter Summary ---
Author Name Unknown Organization [facility] Address [address], [place] [address] Care Team Providers Care Frame Fixer Name Role Phone Mel Delacruz MD Primary Care Pr ovider Reason for Visit * Reason Comments Refill Encounter Details Date Type Department Care Team Description 10/10/2022 Refill [place] [address] [place] [address]. [place] [address] Luigi Hess MD [address] [place], [place] [id number] Refill Social History Tobacco Use Types Packs/Day [...] of this encounter Nursing Notes * Kiara Lopes, RN - 10/10/2022 11:27 AM CDT LV: 05/09/22 NV: n/a Patient had CBC, Creatinine, and ALT labs on 09/19/22 and values were within refill range. Renewed medication per medication refill standing order. Requested Prescriptions Signed Prescriptions Disp Refills methotrexate 2.5 MG tablet 108 Tablet 1 Sig: TAKE 9 TABLETS (22.5 MG TOTAL) BY MOUTH ONCE WEEKLY. (CONTIUE MONITORING LABS EVERY 3 MONTHS) Authorizing Provider: LUIGI HESS Ordering User: KIARA LOPES documented in this encounter Plan of Treatment Not on file documented as of this encounter Visit Diagnoses Not on filedocumented in this encounter Care Teams Frame Fixer Relationship Specialty Start Date End Date Mel Delacruz MD [address] [place] [address] PCP - General 10/18/10 documented as of this encounter
--- OUTSIDE RECORDS SUMMARY | 2023-08-22 11:11 | XMS_ITS | Clinical Summary ---
Author Name Unknown Organization [facility] Address [address] [place] [address] Care Team Providers Care Supervisor Cigar Processing Name Role Phone Mel Delacruz MD Primary Care Pr ovider Source Comments You are receiving this document as you are listed as the primary care provider,follow-up provider, or the patient has been referred to you for consultation.This is in compliance with the Medicare andMedicaid EHR Incentive Program,which states Providers who transition their patient to another setting of careor provider of care or refers their patient to another provider of care shouldprovide summary care record for each transition of care or referral. [facility] Allergies Active Allergy Reactions Criticality Noted Date Comments Leflunomide Diarrhea 01/27/2016 Medications Medication Sig Dispensed Refills Start Date End Date Status folic Acid 800 MCG tablet Take 1 Tablet (800 mcg) by mouth daily. 0 10/28/2009 Active gabapentin (NEURONTIN) 100 MG capsule Take 2 Capsules (200 mg) by mouth daily at bedtime. 0 2018 Active acetaminophen (TYLENOL) 325 MG tablet Take 3 Tablets by mouth three times a day as needed for Pain. 100 Tablet 11 10/22/2018 Active rosuvastatin (CRESTOR) 20 MG tablet Take 1 Tablet (20 mg) by mouth. 0 05/04/2021 Active clopidogrel (PLAVIX) 75 MG tablet Take 1 Tablet (75 mg) by mouth daily. 0 04/22/2021 Active metoprolol tartrate (LOPRESSOR) 25 MG tablet Take 0.5 Tablets (12.5 mg) by mouth. 0 04/21/2021 Active multivitamin with minerals tablet Take 1 Tablet by mouth daily. 0 05/05/2021 Active aspirin EC 81 MG enteric coated tablet Take 1 Tablet (81 mg) by mouth daily. 0 Active hydroxychloroquine (PLAQUENIL) 200 MG tabletIndications:R heumatoid Arthritis Take 1 Tablet (200 mg) by mouth two times a day. Indications: Rheumatoid Arthritis 180 Tablet 3 05/22/2023 Active methotrexate 2.5 MG tablet Take 9 Tablets (22.5 mg) by mouth once every week. 108 Tablet 3 05/22/2023 Active nitroglycerin (NITROSTAT) 0.4 MG sublingual tablet 0 Active Active Problems Problem Noted Date Diagnosed Date Rheumatoid nodule 10/28/2019 Closed fracture of left distal fibula 04/22/2019 Sciatica, left side 10/22/2018 terminal clerk current use of therapeutic drug 2018 Class 3 severe obesity due t o excess calories with body mass index (BMI) of 40.0 to 44.9 in adult 10/22/2018 TMJ pain dysfunction syndrome 10/22/2018 Sensorineural hearing loss (SNHL) of both ears 0 08/30/2018 Impaired fasting glucose 02/24/2016 Rheumatoid arthritis 08/04/2009 Obstructive sleep apnea 05/04/2009 Primary osteoarthritis of left knee 03/17/2009 Coronary atherosclerosis 02/23/2009 Edema 06/29/2007 Essential hypertension 06/29/2007 Hyperlipidemia 06/29/2007 Overview: CABG 1997 Lumbago 06/29/2007 Overview: Chronic intermitttent Encounters Date Type Department Care Team Description 06/19/2023 10:45 AM VP GLOBAL E-Visit [facility] [address] [place] [id number] Luigi Menon MD Chief Comp: QUESTIONS, GENERAL 05/22/2023 9:45 AM VP GLOBAL Office Visit [facility] [address] [place] [address] [phone] Luigi Menon MD 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) (Primary Dx); Rheumatoid nodule (HRC); nursing home current use of therapeutic drug 05/22/2023 9:30 AM VP GLOBAL Lab Visit [facility] [address] [place], [place] [id number] 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) from Last 3 Months Immunizations Name Administration Dates Next Due Flu Vac (3+ yrs) 05/30/2013, 1,05/14/2010,2008,04/17/2008,05/11/2007,05/23/2006,1 Flu Vac Preserv Free (3+yrs) 04/15/2011 Influenza (Fluad) 04/26/2018,04/07/2017 Influenza IIV3 (Trivalent) F pavel Highdose, 65+ Yrs (86367) 04/28/2016,03/30/2015,04/02/2014 Influenza IIV4 (Quadrivalent ) 0.5mL (16150) 04/05/2019 Influenza IIV4 (Quadrivalent ) Fluad, 65+ Yrs 05/11/2023,04/07/2022,04/21/2021,2019 Influenza, Unspecified Formulation 04/16/2022, Moderna 12+ 05/11/2023 PCV13 (Prevnar) 03/30/2015 PPSV23 (Pneumovax) 08/09/2010 Pfizer Bivalent 12+ 12/28/2022 Pfizer Monovalent 12+ 12/16/2021 Pfizer Monovalent 12+ Purple Top 04/23/2021,09/14,09/09/2020 Pneumococcal, Unspecified Formulation 04/16/2022 Td, Preservative Free 05/23/2006 Tdap 02/26/2016,05/17/2006 Zoster (Zostavax) 07/03/2007 Zoster RZV (Shingrix) 07/30/2020,04/23/2020 Social History Tobacco Use Types Packs/Day Years Used Date Smoking Tobacco: Former Smokeless Tobacco: Never Alcohol Use Standard Drinks/Week Comments Yes 0 (1 standard drink = 0.6 oz pur e alcohol) very little Sex and Gender Information Value Date Recorded Sex Assigned at Not on file Gender Identity Not on file Sexual Orientation Not on file Last Filed Vital Signs Vital Sign Reading Time Taken Comments Blood Pressure 118/66 05/22/2023 9:40 AM VP GLOBAL Pulse 50 05/22/2023 9:40 AM VP GLOBAL Temperature 36 ??C (96.8 ??F) 05/09/2022 2:05 PM CDT Respiratory Rate - - Oxygen Saturation - - Inhaled Oxygen Concentration - - Weight 116.6 kg (257 lb) 05/22/2023 9:40 AM VP GLOBAL Height 174 cm (5' 8.5) 10/22/2018 1:18 PM CDT Body Mass Index 38.5 10/22/2018 1:18 PM CDT Plan of Treatment Health Maintenance Due Date Last Done Comments Hep C Screening (Preventive Services) 1945 Prediabetes: HGBA1C 1945 Adult Preventive Visit 1963 DTaP/Tdap/Td (4 - Tdap) 02/25/2026 02/26/20 16, 05/23/2006, 05/17/2006 Zoster/Shingles Completed 07/30/2020, 0 02/2020, 07/03/2007 Pneumococcal 65+ Yrs Completed 04/16/2022, 03/30/2015, 08/09/2010 COVID-19 Vaccine Completed 05/11/2023, , 12/16/2021, Additional history exists Influenza Completed 05/11/2023, 0 07/2021, 04/07/2022, Additional history exists HepA Aged Out No longer eligi ble based on patient's age to complete this topic HepB Aged Out No longer eligi ble based on patient's age to complete this topic Hib Aged Out No longer eligi ble based on patient's age to complete this topic IPV (Polio) Aged Out No longer eligi ble based on patient's age to complete this topic MCV4 Aged Out No longer eligi ble based on patient's age to complete this topic Procedures Procedure Name Priority Date/Time Associated Diagnosis Comments COMPLETE BLOOD COUNT-W/DIFF Routine 05/22/2023 9:34 AM VP GLOBAL 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) CBC AND DIFFERENTIAL PANEL Routine 05/22/2023 9:34 AM [facility] 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) AST Routine 05/22/2023 9:34 AM VP GLOBAL 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) CREATININE / GFR Routine 05/22/2023 9:34 AM [facility] 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) from Last 3 Months Results * (ABNORMAL) CREAT - Creatinine (05/22/2023 9:34 AM [facility]) Pathologist [facility] Creatinine 0.70(L) 0.73 - 1.18 mg/dL 05/22/2023 10:23 AM [facility] GFR, Estimated >60 >60 mL/min/1.7 3m2 05/22/2023 10:23 AM [facility] Blood Venipuncture / Unknown 05/22/2023 9:34 AM VP GLOBAL 05/22/2023 9:34 AM [facility] Luigi Menon MD LAB_1 [facility] [address] [place] [address], [facility] [phone] * (ABNORMAL) Complete Blood Count-W/Diff (05/22/2023 9:34 AM [facility]) Pathologist [facility] WBC 5.4 3.5 - 10.5 x10(9)/L 05/22/2023 9:40 AM [facility] RBC 3.82(L) 4.32 - 5.72 x10(12)/L 05/22/2023 9:40 AM [facility] Hemoglobin 12.1(L) 13.5 - 17.5 g/dL 05/22/2023 9:40 AM [facility] HCT 36.8(L) 38.8 - 50.0 % 05/22/2023 9:40 AM [facility] MCV 96.3 80.0 - 100.0 fL 05/22/2023 9:40 AM [facility] MCH 31.7 27.6 - 33.3 pg 05/22/2023 9:40 AM [facility] MCHC 32.9 31.5 - 35.2 g/dL 05/22/2023 9:40 AM [facility] RDW 15.4 11.9 - 15.5 % 05/22/2023 9:40 AM [facility] Platelets 210 150 - 450 x10(9)/L 05/22/2023 9:40 AM [facility] Automated NRBC 0 <=0 /100 WBC 05/22/2023 9:40 AM [facility] Neutrophil Absolute 3.6 1.7 - 7.0 10(9)/L 05/22/2023 9:40 AM [facility] Lymphocyte Absolute 1.0 1.0 - 4.8 10(9)/L 05/22/2023 9:40 AM [facility] Monocyte Absolute 0.5 0.2 - 0.9 10(9)/L 05/22/2023 9:40 AM [facility] Eosinophil Absolute 0.3 0.0 - 0.5 10(9)/L 05/22/2023 9:40 AM [facility] Basophil Absolute 0.0 0.0 - 0.3 10(9)/L 05/22/2023 9:40 AM [facility] Immature Granulocyte % 0.4 0.0 - 0.5 % 05/22/2023 9:40 AM [facility] Blood Venipuncture / Unknown 05/22/2023 9:34 AM VP GLOBAL 05/22/2023 9:34 AM VP GLOBAL Luigi Menon MD LAB_1 Performing Organization Address [facility]/ZIP Co de Phone Number [facility] [address] [place] [address], [facility] [phone] * AST - Aspartate Aminotransferase (05/22/2023 9:34 AM VP GLOBAL) AST (SGOT) 12 10 - 40 U/L 05/22/2023 10:23 AM [facility] Blood Venipuncture / Unknown 05/22/2023 9:34 AM VP GLOBAL 05/22/2023 9:34 AM VP GLOBAL Luigi Menon MD LAB_1 Performing Organization Address [facility]/ZIP Co de Phone Number [facility] [address] [place] [address], [facility] [phone] from Last 3 Months Care Teams Supervisor Cigar Processing Relationship Specialty Start Date End Date Mel Delacruz MD [address] [place] [address] PCP - General 10/18/10
--- OUTSIDE RECORDS SUMMARY | 2023-08-22 11:11 | XMS_ITS | Clinical Summary ---
Author Name Unknown Organization [facility] Address [place], [place] [address] Care Team Providers Care Gear Milling Machine Set Up Operator Name Role Phone YoselinCharline beverly MD Primary Care Provider Luigi Menon Unavailable [phone] Allergies Active Allergy Reactions Criticality Noted Date Comments Leflunomide Diarrhea,Other - Samm cribe In Comment Field 01/27/2016 Medications Medication Sig Dispensed Refills Start Date End Date Status folic acid 800 mcg tablet Take 1 tablet by mouth once daily. 0 10/28/2009 Active acetaminophen (TYLENOL EXTRA STRENGTH) 500 mg tablet Take 1,000 mg by mouth 2 times daily. Max acetaminophen dose: 4000mg in 24 hrs. 0 Active miscellaneous medical supply misc FOR HOME USE 0 09/10/2018 Active methotrexate (RHEUMATREX) 2.5 mg tablet Take by mouth. Take 5 tablets (dose = 12.5 mg) by mouth on Wednesdays, and 4 tablets (dose = 10 mg) on . Total weekly dose = 22.5 mg 0 04/22/2019 Active vitamin e 400 unit capsule Take 1 Capsule (400 units) by mouth once daily. 0 03/10/2021 Active ascorbic acid, vitamin C, (Vitamin C) 500 mg tablet Take 1 Tablet (500 mg) by mouth once daily. 0 03/10/2021 Active carboxymethylcell ulose 0.5% (Refresh Tears) 0.5 % drop ophthalmic drops Place 1-2 Drops into both eyes every morning. And may take additional once daily as needed. 0 03/10/2021 Active CPAPIndications:O bstructive sleep apnea CPAP machine for home use at pressure: 17 cmw , Heated humidifier x 1 q 5 yr, Water chamber x 1 q 6 mo, chin strap x 1 q 6 mo, Full face mask x 1 q 3 mo, Full face mask cushion x 2 q mo, standard tubing x 1 q 3 mo, headgear x 1 q 6 mo, non disposable filter 1 q 6 mo, disposable filter x 2 q mo Length of Need: 99 months, Frequency of use: Daily 0 03/10/2021 Active VITAMINS A,C,M-FTCN-CWNEVW (Ocuvite PreserVision) 7,160 unit- 113 mg-100 unit tablet Take 1 Tablet by mouth 2 times daily. 0 Active aspirin chewable 81 mg chewable tabletIndications :NSTEMI (non-ST elevated myocardial infarction) (HC) Take 1 Tablet by mouth or nasogastric tube once daily. 90 Tablet 3 04/22/2021 Active hydrOXYchloroQUIN E (PLAQUENIL) 200 mg tablet Take 1 Tablet by mouth 2 times daily. 0 12/14/2020 Active rosuvastatin (CRESTOR) 20 mg tabletIndications :NSTEMI (non-ST elevated myocardial infarction) (HC) Take 1 Tablet (20 mg) by mouth at bedtime. 90 Tablet 3 12/28/2022 Active metoprolol tartrate (LOPRESSOR) 25 mg tabletIndications :NSTEMI (non-ST elevated myocardial infarction) (HC),Essential hypertension Take 0.5 Tablets (12.5 mg) by mouth two times daily. 90 Tablet 3 12/28/2022 Active gabapentin (NEURONTIN) 100 mg capsuleIndication s:Low back pain radiating to left leg Take 2 Capsules (200 mg) by mouth at bedtime. 180 Capsule 3 12/28/2022 Active clopidogreL (PLAVIX) 75 mg tabletIndications :NSTEMI (non-ST elevated myocardial infarction) (HC) Take 1 Tablet (75 mg) by mouth once daily. 90 Tablet 3 12/28/2022 Active nitroglycerin (NITROSTAT) 0.4 mg sublingual tabletIndications :Coronary artery disease involving coronary bypass graft of [place] heart without angina pectoris Place 1 Tablet (0.4 mg) under the tongue every 5 minutes if needed for Chest Pain. Up to 3 tablets in 15 minutes. 25 Tablet 3 08/11/2023 Active nitroglycerin (NITROSTAT) 0.4 mg sublingual tabletIndications :Coronary artery disease involving coronary bypass graft of [place] heart without angina pectoris DISSOLVE ONE TABLET UNDER TONGUE EVERY 5 MINUTES NEEDED FOR CHEST PAIN - MAXIMUM 3 DOSES OVER 15 MINUTES, THEN CALL 911 25 Tablet 3 07/28/2022 08/10/19 24 Discontinu ed(Reorder (E-cancel not sent)) Active Problems Problem Noted Date Diagnosed Date Aortic dilatation 03/15/2023 NSTEMI (non-ST elevated myocardial infarction) 1 Overview: Coronary angiogram 04/20/21 for NSTEMI: Underwent complex intervention with SAMM x1 to aorto-ostial segment of sequential graft aorta to D1-OM1 and SAMM x1 to mid segment of the same graft Class 3 severe obesity due t o excess calories with body mass index (BMI) of 40.0 to 44.9 in adult 07/30/2020 Pyelonephritis 07/20/2019 Sensorineural hearing loss (SNHL) of both ears 0 08/30/2018 Impaired fasting glucose 02/24/2016 Rheumatoid arthritis(714.0) 08/04/2009 CORY, AHI 47, 04/27/2009 05/04/2009 Degenerative joint disease of left knee 03/17/20 09 CAD (coronary artery disease) 02/23/2009 Other and unspecified hyperlipidemia 06/29/2007 Overview: CABG 1997 Unspecified essential hypertension 06/29/2007 Unspecified sleep apnea 06/29/2007 Overview: CPAP Lumbago 06/29/2007 Overview: Chronic intermitttent Radial styloid tenosynovitis 06/29/2007 Overview: tenosynovitis Edema 06/29/2007 Resolved Problems Problem Noted Date Diagnosed Date Resolved Date Routine adult health maintenance 08/24/2017 03/15/2023 Overview: Colonoscopy 08/2017 diverticulosis , repeat in 10 years Left knee pain 03/17/2009 07/29/2009 Impaired fasting glucose Encounters Date Type Department Care Team Description 08/10/2023 Telephone [facility] [address] [place] [address] Charline Wyatt MD Medication Problem (Prescription refill ) from Last 3 Months Immunizations Name Administration Dates Next Due AMB INFLUENZA IIV3 (AGE 65+ YRS) PF (Flu Clinic Only) 04/26/2018,04/07/2017 AMB Influenza, IIV3 (Age >=3 years)(Flu Clinic Only) 05/30/2013,05/14/2010,04/22/2009 AMB Influenza, IIV4 PF (=>6 mos Flulaval,Fluzone Fluarix)(Flu Clinic Only) 04/05/2019 Amb Influenza, Inact (High-d ose) (Flu Clinic Only) 04/28/2016 COVID-19 Vaccine Spikevax (M oderna 50mcg/0.5mL) 12YO+ 1530-0451 Formula PF 05/11/2023 COVID-19 vaccine (Pfizer-Bio NTech 30mcg/0.3mL) 12YO+ BIVALENT PF, MDV 12/28/2022 COVID-19 vaccine (Pfizer-Bio NTech 30mcg/0.3mL) 12YO+ DORIAN-SUCROSE PF, MDV 12/16/2021 COVID-19 vaccine (Pfizer-Bio NTech 30mcg/0.3mL) PF, MDV 04/23/2021,09/30/2020,09/09/2020 Influenza Virus, Unspecified 04/16/2022,04/23/20 20 Influenza, High-dose Inactivated 03/30/2015,03/17 Influenza, IIV3 (Age >=3 years) 04/15/20 11,04/17/2008,05/11/2007,2005,05/02/2003 Influenza, Inactivated AIIV4 (Age 65+ Years) Preserv Free 05/11/2023,04/07/2022,04/21/2021,2019 Pneumococcal Poly,23-Valent (Pneumovax) 08/09/2010 Pneumococcal conj 13-Valent (Prevnar 13) 03/30/2015 Pneumococcal, Unspecified 04/16/2022 Tdap 02/26/2016,05/17/2006 Zoster (Shingrix-RZV, recombinant) 07/30/2020, Zoster (Zostavax-ZVL, live) 07/03/2007 Family History Medical History Relation Name Comments Good Health Brother 1 Good Health Brother 2 Other Sister obesity Relation Name Status Comments Brother 1 Brother 2 Father (Age 57) [place] Maternal Grandfather Maternal Grandmother old ag e Mother (Age 48) cirrhosis- not alcohol related Paternal Grandfather DM Paternal Grandmother CVA Sister Social History Tobacco Use Types Packs/Day Years Used Date Smoking Tobacco: Former Cigarettes 1.5 20 0 09/14/1976 - 09/14/1996 Smokeless Tobacco: Never Tobacco Cessation:Counseling Given: Yes Alcohol Use Standard Drinks/Week Comments Yes 0 (1 standard drink = 0.6 oz pur e alcohol) rare PHQ-2 Answer Date Recorded PHQ-2 TOTAL SCORE 0 12/28/2022 Social Connections Answer Date Recorded Frequency of Communication with Friends and Fami ly Not on file 2021 Financial Resource Strain Answer Date R ecorded Difficulty of Paying Living Expenses Not on file 2021 Difficulty of Paying Living Expenses Not on file 2021 Sex and Gender Information Value Date Recorded Sex Assigned at Not on file Gender Identity Not on file Sexual Orientation Not on file Obstetrics History Last Filed Vital Signs Vital Sign Reading Time Taken Comments Blood Pressure 130/75 03/30/2023 9:45 AM CDT Pulse 47 03/30/2023 9:45 AM CDT Temperature 36.3 ??C (97.4 ??F) 04/20/2022 1:02 PM CD T Respiratory Rate 20 06/30/2021 1:35 PM MEDICAL CARE ADMINISTRATOR Oxygen Saturation 100% 03/30/2023 9:45 AM CDT Inhaled Oxygen Concentration - - Weight 114.9 kg (253 lb 6.4 oz) 023 12:56 PM CDT Height 172.7 cm (5' 8) 12/28/2022 1:17 PM CDT Body Mass Index 38.53 12/28/2022 1:17 PM CDT Plan of Treatment Upcoming Encounters Date Type Department Care Team (Late st Contact Info) Description 10/03/2023 10:30 AM CDT Ancillary Procedure [facility] [address] [place] [address] Health Maintenance Due Date Last Done Comments COVID-19 vaccine series ( season) 2023 05/11/2023, 12/28/2022, 12/16/2021, Additional history exists BMI (ht and wt on same day) for age 18+ 12/29/2023 12/28/2022, 11/30/2022, 12/16/2021, Additional history exists Depression screening for age 12+ 12/29/2023 12/28/2022, 07/30/2020, 03/11/2019, Additional history exists Tetanus booster 02/25/2026 02/26/2016, 05/17/2006 Tdap Completed 02/26/2016, 05/17/2006 Hepatitis C screening for ag e 18-79 Completed 07/29/2020 Zoster (shingles) series for age 50+ Completed 07/30/2020, 04/23/2020, 07/03/2007 Pneumococcal series for age 65+ Completed 04/16/2022, 03/30/2015, 08/09/2010 Influenza for age 65+ Completed 05/11/2023 , 04/16/2022, 04/07/2022, Additional history exists Medical Devices Implanted Type Area Unit Aide Tech Device Identifier Shelf Expiration Date Model / Serial / Lot Stent Uret [id number] Contour - [id number] Implanted:Qty: 1 on 07/21/2019 by Facundo Montoya MD at [facility] Left: Ureter [facility] 01/16/2022 [id number]# / / [id number] Stent Uret [id number] Contour - [id number] Implanted:Qty: 1 on 08/05/2019 by Facundo Montoya MD at [facility] Left: Ureter [facility] [id number]# / / [id number] Advance Directives Documents on File Type Date Recorded Patient Accounting Machine Operator Expl anation Healthcare Directive 03/30/2023 10:23 AM d ated 03/22/23 Latest Code Status on File Code Status Date Activated Date Inactivated Comments Full Code 04/20/2021 3:02 PM 04/21/2021 5:18 PM Question Answer Comments Code Status Discussion: Discussed Code Status History Code Status Date Activated Date Inactivated Comments Full Code 04/20/2021 11:49 AM 04/20/2021 3:02 PM Question Answer Comments Code Status Discussion: Not Discussed Full Code 04/20/2021 11:41 AM 04/20/2021 11:49 AM Question Answer Comments Code Status Discussion: Not Discussed Full Code 08/05/2019 9:07 AM 08/05/2019 3:55 PM Full Code 07/20/2019 11:04 PM 07/23/2019 3:07 PM Question Answer Comments Code Status Discussion: Discussed Care Teams Gear Milling Machine Set Up Operator Relationship Specialty Start Date End Date [place] [address] PCP - General 03/30/10 Luigi Menon [address] [place] [address] Rheumatology 12/28/22
--- OUTSIDE RECORDS SUMMARY | 2023-08-22 11:11 | XMS_ITS | Encounter Summary ---
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) CREATININE / GFR Routine 09/19/2022 2:16 PM TRIM ATTACHER 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) COMPLETE BLOOD COUNT-W/DIFF Routine 09/19/2022 2:16 PM TRIM ATTACHER 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) AST Routine 09/19/2022 2:16 PM TRIM ATTACHER 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3 31.5 - 35.2 g/dL 09/19/2022 2:28 PM [facility] RDW 14.4 11.9 - 15.5 % 09/19/2022 2:28 PM [facility] Platelets 272 150 - 450 x10(9)/L 09/19/2022 2:28 PM [facility] Automated NRBC 0 <=0 /100 WBC 09/19/2022 2:28 PM [facility] Neutrophil Absolute 5.2 1.7 - 7.0 10(9)/L 09/19/2022 2:28 PM [facility] Lymphocyte Absolute 1.5 1.0 - 4.8 10(9)/L 09/19/2022 2:28 PM [facility] Monocyte Absolute 0.8 0.2 - 0.9 10(9)/L 09/19/2022 2:28 PM [facility] Eosinophil Absolute 0.3 0.0 - 0.5 10(9)/L 09/19/2022 2:28 PM [facility] Basophil Absolute 0.1 0.0 - 0.3 10(9)/L 09/19/2022 2:28 PM [facility] Immature Granulocyte % 0.5 0.0 - 0.5 % 09/19/2022 2:28 PM TRIM ATTACHER [facility] Blood Venipuncture / Unknown 09/19/2022 2:16 PM TRIM ATTACHER 09/19/2022 2:16 PM TRIM ATTACHER Luigi Menon MD LAB_1 Performing Organization Address [facility] Co de Phone Number [facility] [address] [place] [address], [place] [phone] * AST - Aspartate Aminotransferase (09/19/2022 2:16 PM TRIM ATTACHER) AST (SGOT) 13 10 - 40 U/L 09/19/2022 3:52 PM TRIM ATTACHER [facility] Blood Venipuncture / Unknown 09/19/2022 2:16 PM TRIM ATTACHER 09/19/2022 2:16 PM TRIM ATTACHER Luigi Menon MD LAB_1 Performing Organization Address [facility] de Phone Number [facility] [address] [place] [phone], [place] [phone] * CREAT - Creatinine (09/19/2022 2:16 PM TRIM ATTACHER) Creatinine 0.80 0.73 - 1.18 mg/dL 09/19/2022 3:52 PM TRIM ATTACHER [facility] GFR, Estimated >60 >60 mL/min/1.7 3m2 09/19/2022 3:52 PM [facility] Blood Venipuncture / Unknown 09/19/2022 2:16 PM TRIM ATTACHER 09/19/2022 2:16 PM TRIM ATTACHER Luigi Menon MD LAB_1 Performing Organization Address [facility] Co de Phone Number [facility] [id number] [place] [phone], [place] [phone] documented in this encounter Visit Diagnoses Diagnosis 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
--- OUTSIDE RECORDS SUMMARY | 2023-08-22 11:11 | XMS_ITS | Encounter Summary ---
Author Name Unknown Organization [facility] Address [address] [address] Care Team Providers Care Ramp And Cargo Supervisor Name Role Phone Mel Delacruz MD Primary Care Pr ovider Reason for Visit * Reason Comments QUESTIONS, GENERAL Entered automaticall y based on patient selection in [employer]. Encounter Details Date Type Department Care Team Description 06/19/2023 10:45 AM HEALTH EQUIPMENT SERVICER E-Visit [facility] [address] [place], [place] [id number] Luigi Menon MD [address] [place], [place] [phone] Chief Comp: QUESTIONS, GENERAL Social History Tobacco Use Types Packs/Day Years [...] on filedocumented in this encounter Care Teams Ramp And Cargo Supervisor Relationship Specialty Start Date End Date Mel Delacruz MD [address] [place], [place] [phone] PCP - General 10/18/10 documented as of this encounter
--- OUTSIDE RECORDS SUMMARY | 2023-08-22 11:11 | XMS_ITS | Encounter Summary ---
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) CREATININE / GFR Routine 05/22/2023 9:34 AM ECHOCARDIOGRAPHER 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) COMPLETE BLOOD COUNT-W/DIFF Routine 05/22/2023 9:34 AM ECHOCARDIOGRAPHER 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) AST Routine 05/22/2023 9:34 AM ECHOCARDIOGRAPHER 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) documented in this encounter Results * (ABNORMAL) Complete Blood Count-W/Diff (05/22/2023 9:34 AM [facility]) WBC 5.4 3.5 - 10.5 x10(9)/L 05/22/2023 9:40 AM [facility] RBC 3.82(L) 4.32 - 5.72 x10(12)/L 05/22/2023 9:40 AM [facility] Hemoglobin 12.1(L) 13.5 - 17.5 g/dL 05/22/2023 9:40 AM [facility] HCT 36.8(L) 38.8 - 50.0 % 05/22/2023 9:40 AM [facility] MCV 96.3 80.0 - 100.0 fL 05/22/2023 9:40 AM [facility] MCH 31.7 27.6 - 33.3 pg 05/22/2023 9:40 AM [facility] MCHC 32.9 31.5 - 35.2 g/dL 05/22/2023 9:40 AM [facility] RDW 15.4 11.9 - 15.5 % 05/22/2023 9:40 AM [facility] Platelets 210 150 - 450 x10(9)/L 05/22/2023 9:40 AM [facility] Automated NRBC 0 <=0 /100 WBC 05/22/2023 9:40 AM [facility] Neutrophil Absolute 3.6 1.7 - 7.0 10(9)/L 05/22/2023 9:40 AM [facility] Lymphocyte Absolute 1.0 1.0 - 4.8 10(9)/L 05/22/2023 9:40 AM [facility] Monocyte Absolute 0.5 0.2 - 0.9 10(9)/L 05/22/2023 9:40 AM [facility] Eosinophil Absolute 0.3 0.0 - 0.5 10(9)/L 05/22/2023 9:40 AM [facility] Basophil Absolute 0.0 0.0 - 0.3 10(9)/L 05/22/2023 9:40 AM [facility] Immature Granulocyte % 0.4 0.0 - 0.5 % 05/22/2023 9:40 AM ECHOCARDIOGRAPHER [facility] Blood Venipuncture / Unknown 05/22/2023 9:34 AM ECHOCARDIOGRAPHER 05/22/2023 9:34 AM ECHOCARDIOGRAPHER Luigi Menon MD LAB_1 Performing Organization Address [facility] de Phone Number [facility] [address] [place] [address], [facility] [phone] * AST - Aspartate Aminotransferase (05/22/2023 9:34 AM ECHOCARDIOGRAPHER) AST (SGOT) 12 10 - 40 U/L 05/22/2023 10:23 AM ECHOCARDIOGRAPHER [facility] Blood Venipuncture / Unknown 05/22/2023 9:34 AM ECHOCARDIOGRAPHER 05/22/2023 9:34 AM ECHOCARDIOGRAPHER Luigi Menon MD LAB_1 Performing Organization Address [facility] de Phone Number [facility] [address] [place] [phone], [facility] [phone] * (ABNORMAL) CREAT - Creatinine (05/22/2023 9:34 AM ECHOCARDIOGRAPHER) Creatinine 0.70(L) 0.73 - 1.18 mg/dL 05/22/2023 10:23 AM [facility] GFR, Estimated >60 >60 mL/min/1.7 3m2 05/22/2023 10:23 AM [facility] Blood Venipuncture / Unknown 05/22/2023 9:34 AM ECHOCARDIOGRAPHER 05/22/2023 9:34 AM ECHOCARDIOGRAPHER Luigi Menon MD LAB_1 Performing Organization Address [facility] de Phone Number [facility] [id number] [place] [phone], [facility] [phone] documented in this encounter Visit Diagnoses Diagnosis 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
[2023-08-22] MEDS: MORPHINE 4 MG/ML INJ IVP (11:40)
[2023-08-22 11:43] LABS: Basophils Percent Auto 0.1 % (0.0-3.0); Hematocrit 38.1 % (37.0-53.0); Immature Granulocytes Pct Auto 0.3 %; Lymphocytes Percent Auto 6.2 % (20-44); Mean Corpuscular HGB Conc 34 gm/dL (32-36); Mean Corpuscular Hemoglobin 32 pg (26-34); Mean Corpuscular Volume 93 fL (80-100); Neutrophils Percent Auto 81.4 % (42.0-72.0); Platelet Count* 255 K/uL (140-440); RDW Coefficient of Variation % 15.4 % (11.5-15.5); Red Blood Count 4.08 m/uL (4.30-5.90); White Blood Count* 13.36 K/uL (4.50-11.00)
[2023-08-22 11:48] LABS: Slide Review Reflex No
[2023-08-22 12:23] LABS: Procalcitonin* 0.53 ng/mL (<0.50)
[2023-08-22 12:27] LABS: C Reactive Protein* 17.1 mg/dL (0.5-1.0)
[2023-08-22 13:07] LABS: Chloride* 104 mmol/L (96-114); Sodium* 136 mmol/L (135-149)
[2023-08-22 13:10] LABS: Anion Gap 11 mEq/L (7-15); Blood Urea Nitrogen* 12 mg/dL (7-30); Calcium* 9.3 mg/dL (8.4-10.6); Carbon Dioxide* 21 mmol/L (20-32); Creatinine* 0.7 mg/dL (0.5-1.5); Est. Creatinine Clearance* 60.88; Estimated Glomerular Filt Rate 94 ml/min; Glucose* 158 mg/dL (60-115)
[2023-08-22 13:12] LABS: Lactate* 1.1 mmol/L (0.5-1.9)
[2023-08-22 13:25] LABS: PCR FLU A Negative PCR FLU A (Negative); PCR FLU B Negative PCR FLU B (Negative); PCR RSV Negative PCR RSV (Negative); SARS PCR* Negative SARS-CoV-2 (Negative)
[2023-08-22 13:31] LABS: Appearance Urine Clear (Clear); Bilirubin Urine Negative (Negative); Blood Urine Negative (Negative); Color Urine Yellow (Yellow); Glucose Urine Negative (Negative); Ketones Urine Negative (Negative); Leukocyte Esterase Urine Trace (Negative); Nitrite Urine Negative (Negative); Protein Urine 1+ (Negative); Specific Gravity Urine 1.025 (1.000-1.030)
[2023-08-22 13:41] LABS: Bacteria Urine Few; Squamous Epithelial Cell Urine Moderate (None-Few)
== END 2023-08-22 14:43 | disposition home or self-care (01) ==
PROVIDERS: Emergency Provider Family Medicine; PCP Family Medicine
DX: N39.0 Urinary tract infection, site not specified (principal); R68.83 Chills (without fever); M25.551 Pain in right hip; G89.29 Other chronic pain
CPT/HCPCS: 36415; 73502; 80048; 81001; 83605; 84145; 85025; 86140; 87040; 87086; 87631; 96360; 99284; J2270

== ENCOUNTER 2023-11-25 18:26 | Observation (INO) | payer BC, SELFPAY ==
[2023-11-25] VITALS (7 sets, daily range): BP systolic 121–128; BP diastolic 73–87; PULSE 76–97; RESP 18–24; TEMP 36.8–37.8; O2SAT 94–96; BMI 36.2
--- NOTE | 2023-11-25 18:50 | ED_ITS ---
HPI - Male Genitourinary General Time Seen by Provider: 18:50 Date Seen: 11/25/23 Chief complaint: Urogenital Problems, Male Stated complaint: pain urination; a tinge of red in urine Time Seen by Provider: 11/25/23 18:37 Source: patient, family ( is present) and RN notes reviewed Mode of arrival: ambulatory Limitations: no limitations History of Present Illness HPI Narrative: This 78-year-old male is ambulatory into the ED accompanied by his with concerns of urinary changes. He notes he has been having some burning of urination, frequency and possibly blood in his urine. He has not noted any fevers but he is currently feeling quite chilled. He has a history kidney stones. He did have kidney stones removed in July of 2019, they took 2 out and than sounds as if they did a lithotripsy on the 3rd stone at [place], urologist was Dr. Montoya. He is on aspirin and Plavix for history of cardiac disease, quadruple bypass in 1996 and subsequent heart attack with 2 stents placed on 04/20/21. He is denying any abdominal pain at this time. Patient states his symptoms started on but then he tells me his told him his symptoms started yesterday, she states this afternoon was the 1st time she knew about his symptoms. She states they were out to lunch with their daughter, he got up to go to the bathroom 4 times during that time frame. She actually had to ask him what was wrong. MD Complaint: dysuria Related Data Home Medications Medication Instructions Recorded Confirmed ascorbic acid (vitamin C) 500 mg 500 mg PO DAILY 04/15/22 11/25/23 capsule,extended release (Vitamin C) aspirin 81 mg chewable tablet 81 mg PO DAILY 04/15/22 11/25/23 clopidogrel 75 mg tablet (Plavix) 75 mg PO DAILY 04/15/22 11/25/23 gabapentin 100 mg capsule 200 mg PO QHS 04/15/22 11/25/23 (Neurontin) hydroxychloroquine 200 mg tablet 400 mg PO DAILY 04/15/22 11/25/23 (Plaquenil) methotrexate sodium 2.5 mg tablet 12.5 mg PO 2XW 04/15/22 11/25/23 metoprolol tartrate 25 mg tablet 12.5 mg PO BID 04/15/22 11/25/23 nitroglycerin 0.4 mg sublingual 0.4 mg sublingual Q5-15M PRN 04/15/22 11/25/23 tablet rosuvastatin 20 mg tablet (Crestor) 20 mg PO DAILY 04/15/22 11/25/23 vitamin A-vitamin C-vit E-min 1 tab PO BID 04/15/22 11/25/23 tablet Allergies Allergy/AdvReac Type Severity Reaction Status Date / Time leflunomide Allergy Mild Diarrhea Verified 09/12/23 13:09 Review of Systems Status of ROS: Reports: 6 or more systems reviewed and unremarkable except as noted in History and below [facility] Medical History (Updated 11/25/23 @ 23:06 by Guy Goodman MD) Cognitive impairment ?R41.89 - Other symptoms and signs involving cognitive functions and awareness (ICD-10) Pruritic rash ?L28.2 - Other prurigo (ICD-10) Postoperative hemorrhage Cellulitis ?L03.90 - Cellulitis, unspecified (ICD-10) Calculus of kidney ?N20.0 - Calculus of kidney (ICD-10) Closed left ankle fracture ?S82.892A - Other fracture of left lower leg, initial encounter for closed fracture (ICD-10) NSTEMI (non-ST elevated myocardial infarction) ?I21.4 - Non-ST elevation (NSTEMI) myocardial infarction (ICD-10) Class 3 severe obesity due to excess calories with body mass index (BMI) of 40.0 to 44.9 in adult ?E66.01 - Morbid (severe) obesity due to excess calories (ICD-10) ?Z68.41 - Body mass index [BMI] 40.0-44.9, adult (ICD-10) Pyelonephritis ?N12 - Tubulo-interstitial nephritis, not specified as acute or chronic (ICD- 10) Sensorineural hearing loss (SNHL) of both ears ?H90.3 - Sensorineural hearing loss, bilateral (ICD-10) Impaired fasting glucose ?R73.01 - Impaired fasting glucose (ICD-10) Rheumatoid arthritis ?M06.9 - Rheumatoid arthritis, unspecified (ICD-10) CORY (obstructive sleep apnea) ?G47.33 - Obstructive sleep apnea (adult) (pediatric) (ICD-10) Degenerative joint disease of left knee ?M17.12 - Unilateral primary osteoarthritis, left knee (ICD-10) CAD (coronary artery disease) ?I25.10 - Atherosclerotic heart disease of [place] coronary artery without angina pectoris (ICD-10) Edema ?R60.9 - Edema, unspecified (ICD-10) Radial styloid tenosynovitis ?M65.4 - Radial styloid tenosynovitis [de Quervain] (ICD-10) Lumbago ?M54.50 - Low back pain, unspecified (ICD-10) Unspecified sleep apnea ?G47.30 - Sleep apnea, unspecified (ICD-10) Other and unspecified hyperlipidemia ?E78.5 - Hyperlipidemia, unspecified (ICD-10) Unspecified essential hypertension ?I10 - Essential (primary) hypertension (ICD-10) Surgical History History of ectropion repair ?Z98.890 - Other specified postprocedural states (ICD-10) History of phacoemulsification of cataract of both eyes with intraocular lens implantation ?Z98.41 - Cataract extraction status, right eye (ICD-10) ?Z98.42 - Cataract extraction status, left eye (ICD-10) ?Z96.1 - Presence of intraocular lens (ICD-10) History of tooth extraction ?K08.409 - Partial loss of teeth, unspecified cause, unspecified class (ICD- 10) Hx of colonoscopy ?Z98.890 - Other specified postprocedural states (ICD-10) Hx of coronary artery bypass graft ?Z95.1 - Presence of aortocoronary bypass graft (ICD-10) Social History (Updated 11/25/23 @ 22:59 by Guy Goodman MD) Narrative: Patient lives with his in [place]. Son lives nearby. is healthcare power of criminal defense attorney. Code status is DNR. Quit smoking when he had his coronary artery bypass in 1996. Drinks alcohol about once a month. Smoking Status: Former smoker What tobacco products do you use: cigarettes Smoking packs per day: 1.5 Smoking cigarettes per day: 30.0 Years smoked: 35 Smoking pack-years: 52.50 Smoking quit date/years: >15 years ago and pipe Do you use any of these nicotine containing products: None Second hand tobacco smoke exposure: No How often do you have a drink containing alcohol: monthly or less Alcohol type: beer and wine How many standard drinks containing alcohol do you have on a typical day: 1 or 2 How often do you have six or more drinks on one occasion: Never AUDIT-C Alcohol total score: 1 Non-prescribed substance use: denies use Caffeine: Yes (RARE) service: No Exam Const: Vital Signs, click to edit/add: Vital Signs - 24 hr 11/25/23 18:30 11/25/23 18:59 11/25/23 20:30 Temperature 98.3 F 100.0 F H Pulse Rate 91 Pulse Rate [Pulse Oximeter] 76 Respiratory Rate 24 Blood Pressure Blood Pressure [Ri ght Upper Arm] 121/73 Pulse Oximetry 95 96 96 Oxygen Delivery Me thod Room Air Room Air 11/25/23 20:31 11/25/23 21:00 11/25/23 21:05 Temperature Pulse Rate 93 92 97 Pulse Rate [Pulse Oximeter] Respiratory Rate 18 Blood Pressure 128/87 Blood Pressure [Ri ght Upper Arm] Pulse Oximetry 96 94 96 Oxygen Delivery Me thod Room Air 11/25/23 21:06 Temperature Pulse Rate 93 Pulse Rate [Pulse Oximeter] Respiratory Rate Blood Pressure Blood Pressure [Ri ght Upper Arm] Pulse Oximetry 94 Oxygen Delivery Me thod Patient is alert, interactive, no apparent distress. He is able to ambulate to the bathroom. Sclera clear, conjugate gaze. CV regular rate and rhythm, no murmur. Lungs are clear, good air entry. Abdomen is soft, nontender, nondistended, no rebound or guarding or masses noted. Patient does smell of urine, do see where he has had a little bit of urinary incontinence into his pants. Documenting provider has reviewed patient's vital signs: yes Course Course ED Course: Patient certainly could have a urinary tract infection but absolutely need to rule out underlying obstructive stones. If he has urinary tract infection with stone obstruction, will need transfer where there is Urology. Will get a full complement of labs including blood cultures. Patient just left a clean-catch urinalysis. Will be imaging with CT abdomen pelvis noncontrast. He is currently hemodynamically stable, we will hold off IV fluids until I see labs in where this is going clinically. If he does spike a fever, obviously will need to worry about sepsis in this situation and will address his hemodynamic status and fluids at that time. Reevaluation(s) Time of Reevaluation #1: 20:21 Reevaluation #1: Reviewed with patient and his that he has UTI, he is receiving 2 g IV Rocephin. He has no evidence of any stones on his CT scan. I do think that he should be observed overnight just to ensure no worsening clinically with this urinary tract infection. They are agreeable to this. Did review with them that his white count is elevated, I do sense that he has some mild confusion with this infection. His would agree with that. Time of Reevaluation #2: 20:39 Reevaluation #2: Patient did looked flushed when I was in with him last, did have nursing staff recheck his temperature. He is now at 100?F orally. Consultations Consultation #1: Reviewed with Dr. Goodman the hospitalist. He will come and see the patient. He will decide if he will place patients in the hospital after he sees him. Time: 20:23 Vital Signs Vital signs: Initial Vital Signs Temperature 98.3 F 11/25/23 18:30 Temperature Source Temporal Artery Scan 11/25/23 18:30 Pulse Rate 76 11/25/23 18:30 Respiratory Rate 24 11/25/23 18:30 Blood Pressure 121/73 11/25/23 18:30 Blood Pressure Mean 89 11/25/23 18:30 Blood Pressure Position Supine 11/25/23 18:30 Pulse Oximetry 95 11/25/23 18:30 Oxygen Delivery Method Room Air 11/25/23 18:30 Vital Signs Temperature 98.3 F 11/25/23 18:30 Pulse Rate 76 11/25/23 18:30 Respiratory Rate 24 11/25/23 18:30 Blood Pressure 121/73 11/25/23 18:30 Pulse Oximetry 95 11/25/23 18:30 Oxygen Delivery Method Room Air 11/25/23 18:30 Temperature 100.0 F H 11/25/23 20:30 Pulse Rate 93 11/25/23 21:06 Respiratory Rate 18 11/25/23 20:31 Blood Pressure 128/87 11/25/23 20:31 Pulse Oximetry 94 11/25/23 21:06 Oxygen Delivery Method Room Air 11/25/23 20:31 Medications Administered Medications: Discontinued Medications Generic Name Dose Route Start Last Admin Trade Name Freq PRN Reason Stop Dose Admin Ceftriaxone Sodium 2 gm/ 100 mls @ 200 mls/hr 11/25/23 19:35 11/25/23 20:40 Sodium Chloride IVPB 11/25/23 19:36 Infused ONCE ONE Infusion MDM - Male Genitourinary Lab Data Attestation: I reviewed the patient's lab results. Labs: Lab Results 11/25/23 11/25/23 Range/Units 18:55 19:30 WBC 12.63 H (4.50-11.00) K/uL RBC 4.16 L (4.30-5.90) m/uL Hgb 13.4 L (13.5-17.5) gm/dL Hct 40.2 (37.0-53.0) % MCV 97 (80-100) fL MCH 32 (26-34) pg MCHC 33 (32-36) gm/dL RDW Coeff of Tim 15.9 H (11.5-15.5) % Plt Count 223 (140-440) K/uL Neut % (Auto) 72.8 H (42.0-72.0) % Lymph % (Auto) 20.3 (20-44) % Bell % (Auto) 4.0 (0.0-11.0) % Eos % (Auto) 2.5 (0.0-7.0) % Baso % (Auto) 0.3 (0.0-3.0) % Neut # (Auto) 9.20 H (1.7-7.0) K/uL Lymph # (Auto) 2.60 (0.90-2.90) K/uL Bell # (Auto) 0.50 (0.00-0.90) K/UL Eos # (Auto) 0.30 (0.00-0.50) K/uL Baso # (Auto) 0.00 (0.00-0.30) K/uL Abs Immat Gran (auto) 0.00 (0.00-0.30) K/uL Imm/Tot Granulo (auto) 0.1 % Sodium 140 (135-149) mmol/L Potassium 3.7 (3.6-5.1) mmol/L Chloride 108 (96-114) mmol/L Carbon Dioxide 28 (20-32) mmol/L Anion Gap 4 L (7-15) mEq/L BUN 12 (7-30) mg/dL Creatinine 0.7 (0.5-1.5) mg/dL Estimated Creat Clear 60.88 Estimated GFR 94 ml/min Glucose 101 (60-115) mg/dL Lactate 1.9 (0.5-1.9) mmol/L Calcium 9.2 (8.4-10.6) mg/dL Total Bilirubin 1.0 (0.1-1.5) mg/dL AST 28 (12-35) U/L ALT 22 (4-50) U/L Alkaline Phosphatase 73 (40-150) U/L C-Reactive Protein 1.5 H (0.5-1.0) mg/dL Total Protein 7.8 (6.0-8.3) g/dL Albumin 4.4 (3.3-5.0) g/dL Procalcitonin 0.07 (<0.50) ng/mL Urine Color Yellow (Yellow) Urine Appearance Turbid A (Clear) Urine pH >= 9.0 H (5.0-8.5) Ur Specific [place] 1.020 (1.000-1.030) Urine Protein 3+ A (Negative) Urine Glucose (UA) Negative (Negative) Urine Ketones Negative (Negative) Urine Blood 3+ A (Negative) Urine Nitrite Positive A (Negative) Urine Bilirubin Negative (Negative) Urine Urobilinogen 1.0 (0.2-1.0) Ur Leukocyte Esterase 2+ A (Negative) Urine RBC 50-100 A (0-2) Urine WBC >100 A (0-5) Ur Squamous Epith Cells None (None-Few) Amorphous Sediment Few A (None) Other Sediment Few A (None) Urine Bacteria Many A (None) Urine Yeast Few A (None) Imaging Data CT scan - abdomen: Attestation: I have reviewed the pertinent imaging results. My impression: I did visualize his CT, did not appreciate any obstructing stones but certainly need to await Radiology over-read. Radiologist's impression: Patient: ISAAC DOHERTY Facility:?[facility] Patient ID:?[id number] Site Patient ID:?[id number]. Site :?[id number] Study:?CT-Abdomen/Pelvis W/O-11/25/2023 7:29:19 PM Ordering Physician:JIMMY Final Report: INDICATION: dysuria, hx kidney stones. TECHNIQUE: CT abdomen and pelvis without contrast. COMPARISON: None. FINDINGS: Limited evaluation of the intra-abdominal solid organs without IV contrast. Lower chest: Bilateral basilar bronchial wall thickening and linear opacities may reflect atelectasis or scarring. Liver: Normal in size and attenuation. No suspicious masses. Gallbladder and bile ducts: Gallbladder is collapsed. No intra or extrahepatic biliary ductal dilatation. Pancreas: Unremarkable. No mass or inflammation. Spleen: Normal in size. No masses. Adrenal glands: Normal in size. No nodules. Kidneys: Normal in size. No suspicious masses, stones, or hydronephrosis. GI tract: Colonic diverticulosis without evidence of diverticulitis. Normal in caliber. No sign of mass or inflammation. Normal appendix. Vasculature: Abdominal aorta is normal in caliber. Lymph nodes: No lymphadenopathy. Peritoneum/Abdominal Wall: Unremarkable. No sign of mass or infiltration. No free air or significant free fluid. Pelvis: Mild circumferential bladder wall thickening. No pelvic masses. Bones: Unremarkable for age. IMPRESSION: 1. No renal or ureteral stones identified. No hydronephrosis or hydroureter. 2. Mild circumferential bladder wall thickening may be related to cystitis. Correlate with UA. 3. Colonic diverticulosis without evidence of diverticulitis. Please note that all CT scans at this facility use dose modulation, iterative reconstruction, and/or weight-based dosing when appropriate to reduce radiation dose to as low as reasonably achievable. Dictated by Lupis Soriano MD @ 11/25/2023 8:18:05 PM (Electronic Signature) Discharge Plan Discharge Clinical Impression: Urinary tract infection Qualifiers: Urinary tract infection type: acute cystitis Hematuria presence: with hematuria Qualified Code(s): N30.01 - Acute cystitis with hematuria Patient Disposition: Admitted As Observation
--- NOTE | 2023-11-25 18:59 | CT_ITS ---
Patient: ISAAC DOHERTY Facility:?[facility] RIS Patient ID:?[id number] Site Patient ID:?[id number]. Site :?1945 Study:?CT-Abdomen/Pelvis W/O-11/25/2023 7:29:19 PM Ordering Physician:JIMMY Final Report: INDICATION: dysuria, hx kidney stones. TECHNIQUE: CT abdomen and pelvis without contrast. COMPARISON: None. FINDINGS: Limited evaluation of the intra-abdominal solid organs without IV contrast. Lower chest: Bilateral basilar bronchial wall thickening and linear opacities may reflect atelectasis or scarring. Liver: Normal in size and attenuation. No suspicious masses. Gallbladder and bile ducts: Gallbladder is collapsed. No intra or extrahepatic biliary ductal dilatation. Pancreas: Unremarkable. No mass or inflammation. Spleen: Normal in size. No masses. Adrenal glands: Normal in size. No nodules. Kidneys: Normal in size. No suspicious masses, stones, or hydronephrosis. GI tract: Colonic diverticulosis without evidence of diverticulitis. Normal in caliber. No sign of mass or inflammation. Normal appendix. Vasculature: Abdominal aorta is normal in caliber. Lymph nodes: No lymphadenopathy. Peritoneum/Abdominal Wall: Unremarkable. No sign of mass or infiltration. No free air or significant free fluid. Pelvis: Mild circumferential bladder wall thickening. No pelvic masses. Bones: Unremarkable for age. IMPRESSION: 1. No renal or ureteral stones identified. No hydronephrosis or hydroureter. 2. Mild circumferential bladder wall thickening may be related to cystitis. Correlate with UA. 3. Colonic diverticulosis without evidence of diverticulitis. Please note that all CT scans at this facility use dose modulation, iterative reconstruction, and/or weight-based dosing when appropriate to reduce radiation dose to as low as reasonably achievable. Dictated by Lupis Soriano MD @ 11/25/2023 8:18:05 PM Signed by:?Lupis Soriano MD @11/25/2023 8:18:05 PM (Electronic Signature)
[2023-11-25 19:04] LABS: Appearance Urine Turbid (Clear); Bilirubin Urine Negative (Negative); Blood Urine 3+ (Negative); Color Urine Yellow (Yellow); Glucose Urine Negative (Negative); Ketones Urine Negative (Negative); Leukocyte Esterase Urine 2+ (Negative); Nitrite Urine Positive (Negative); Protein Urine 3+ (Negative)
[2023-11-25 19:19] LABS: Amorphous Sediment Urine Few; Bacteria Urine Many; RBC Urine 50-100 (0-2); WBC Urine >100 (0-5); pH Urine >= 9.0 (5.0-8.5)
[2023-11-25 19:20] LABS: Other Sediment Urine Few
--- OUTSIDE RECORDS SUMMARY | 2023-11-25 19:37 | XMS_ITS | Clinical Summary ---
Author Name Unknown Organization [facility] Address [address] [place] [address] Care Team Providers Care Manager Camp Name Role Phone Mel Delacruz MD Primary [...] for each transition of care or referral. [facility] Allergies Active Allergy Reactions Criticality Noted Date Comments Leflunomide Diarrhea 01/27/2016 Medications Medication Sig Dispensed Refills Start Date End Date Status folic Acid 800 MCG tablet Take 1 Tablet (800 mcg) by mouth daily. 10/28/2009 Active gabapentin (NEURONTIN) 100 MG capsule Take 2 Capsules (200 mg) by mouth daily at bedtime. 2018 Active acetaminophen (TYLENOL) 325 MG tablet Take 3 Tablets by mouth three times a day as needed for Pain. 100 Tablet 11 10/22/2018 Active rosuvastatin (CRESTOR) 20 MG tablet Take 1 Tablet (20 mg) by mouth. 05/04/2021 Active clopidogrel (PLAVIX) 75 MG tablet Take 1 Tablet (75 mg) by mouth daily. 04/22/2021 Active metoprolol tartrate (LOPRESSOR) 25 MG tablet Take 0.5 Tablets (12.5 mg) by mouth. 04/21/2021 Active multivitamin with minerals tablet Take 1 Tablet by mouth daily. 05/05/2021 Active aspirin EC 81 MG enteric coated tablet Take 1 Tablet (81 mg) by mouth daily. Active hydroxychloroquine (PLAQUENIL) 200 MG tabletIndications:R heumatoid Arthritis Take 1 Tablet (200 mg) by mouth two times a day. Indications: Rheumatoid Arthritis 180 Tablet 3 05/22/2023 Active methotrexate 2.5 MG tablet Take 9 Tablets (22.5 mg) by mouth once every week. 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) from Last 3 Months Immunizations Name Administration Dates Next Due Flu Vac (3+ yrs) 05/30/2013, 1,05/14/2010,2008,04/17/2008,05/11/2007,05/23/2006,1 Flu Vac Preserv Free (3+yrs) 04/15/2011 Influenza (Fluad) 04/26/2018,04/07/2017 Influenza IIV3 (Trivalent) F pavel Highdose, 65+ Yrs (04726) 04/28/2016,03/30/2015,04/02/2014 Influenza IIV4 (Quadrivalent ) 0.5mL (26728) 04/05/2019 Influenza IIV4 (Quadrivalent ) Fluad, 65+ [...] Comments Blood Pressure 118/66 05/22/2023 9:40 AM [employer] Pulse 50 05/22/2023 9:40 AM [employer] Temperature 36 ??C (96.8 ??F) 05/09/2022 2:05 PM CDT Respiratory Rate - - Oxygen Saturation - - Inhaled Oxygen Concentration - - Weight 116.6 kg (257 lb) 05/22/2023 9:40 AM [employer] Height 174 cm (5' 8.5) 10/22/2018 1:18 PM CDT Body Mass Index 38.5 10/22/2018 1:18 PM CDT Plan of Treatment Health Maintenance Due Date Last Done Comments Hep C Screening (Preventive Services) 1945 Adult Preventive Visit 1963 Prediabetes: HGBA1C 12/29/2023 12/28/2022, 05/25/202 2 DTaP/Tdap/Td (4 - Tdap) 02/25/2026 02/26/20 16, 05/23/2006, 05/17/2006 Zoster/Shingles Completed 07/30/2020, 02/2020, 07/03/2007 Pneumococcal 65+ Yrs Completed 04/16/2022, 03/30/2015, 08/09/2010 COVID-19 Vaccine Completed 05/11/2023, , 12/16/2021, Additional history exists Influenza Completed 05/11/2023, 07/2021, 04/07/2022, Additional history exists HepA Aged [...] Associated Diagnosis Comments COMPLETE BLOOD COUNT-W/DIFF Routine 09/05/2023 11:53 AM [employer] 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) CBC AND DIFFERENTIAL PANEL Routine 09/05/2023 11:53 AM [employer] 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) AST Routine 09/05/2023 11:53 AM [employer] 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) CREATININE / GFR Routine 09/05/2023 11:5 3 AM [employer] 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) HGB A1C (EXTERNAL RESULT) Routine 12/28/2022 2:20 PM CDT from Last 3 Months or Most Recently Relevant to Health Maintenance Results * (ABNORMAL) CREAT - Creatinine (09/05/2023 11:53 AM [employer]) Creatinine 0.70(L) 0.73 - 1.18 mg/dL 09/05/2023 2:42 PM [facility] GFR, Estimated >60 >60 mL/min/1.7 3m2 09/05/2023 2:42 PM [facility] Blood Venipuncture / Unknown 09/05/2023 11:53 AM [employer] 09/05/2023 11:53 AM [employer] Luigi Menon MD LAB_1 [facility] [address] [place] [address] * Complete Blood Count-W/Diff (09/05/2023 11:53 AM [employer]) WBC 7.8 3.5 - 10.5 x10(9)/L 09/05/2023 12:24 PM [facility] RBC 4.35 4.32 - 5.72 x10(12)/L 09/05/2023 12:24 PM [facility] Hemoglobin 13.7 13.5 - 17.5 g/dL 09/05/2023 12:24 PM [facility] HCT 41.6 38.8 - 50.0 % 09/05/2023 12:24 PM [facility] MCV 95.6 80.0 - 100.0 fL 09/05/2023 12:24 PM [facility] MCH 31.5 27.6 - 33.3 pg 09/05/2023 12:24 PM [facility] MCHC 32.9 31.5 - 35.2 g/dL 09/05/2023 12:24 PM [facility] RDW 15.1 11.9 - 15.5 % 09/05/2023 12:24 PM [facility] Platelets 318 150 - 450 x10(9)/L 09/05/2023 12:24 PM [facility] Automated NRBC 0 <=0 /100 WBC 09/05/2023 12:24 PM [facility] Neutrophil Absolute 4.1 1.7 - 7.0 10(9)/L 09/05/2023 12:24 PM [facility] Lymphocyte Absolute 2.6 1.0 - 4.8 10(9)/L 09/05/2023 12:24 PM [facility] Monocyte Absolute 0.8 0.2 - 0.9 10(9)/L 09/05/2023 12:24 PM [facility] Eosinophil Absolute 0.2 0.0 - 0.5 10(9)/L 09/05/2023 12:24 PM [facility] Basophil Absolute 0.1 0.0 - 0.3 10(9)/L 09/05/2023 12:24 PM [facility] Immature Granulocyte % 0.4 0.0 - 0.5 % 09/05/2023 12:24 PM [facility] Blood Venipuncture / Unknown 09/05/2023 11:53 AM [employer] 09/05/2023 11:53 AM [employer] Luigi Menon MD LAB_1 Performing Organization Address [facility] Co de Phone Number [facility] [address] * AST - Aspartate Aminotransferase (09/05/2023 11:53 AM [employer]) AST (SGOT) 16 10 - 40 U/L 09/05/2023 2:42 PM [facility] Blood Venipuncture / Unknown 09/05/2023 11:53 AM [employer] 09/05/2023 11:53 AM [employer] Luigi Menon MD LAB_1 Performing Organization Address [facility] de Phone Number [facility] [address] from Last 3 Months or Most Recently Relevant to Health Maintenance Care Teams Manager Camp Relationship Specialty Start Date End Date Mel Delacruz MD [address] [place] [address] PCP - General 10/18/10
--- OUTSIDE RECORDS SUMMARY | 2023-11-25 19:37 | XMS_ITS | Continuity of Care Document ---
Author Name Unknown Address [address] [place] [address] Phone [phone] Organization [facility] Address [address] [place] [address] Care Team Providers Care Athletic Scout Name Role Phone VELASQUEZ STEVEN ([place]INTERS) Primary Care Provider Assessment Encounter Date Assessment Date Assessment LastModified by Organization Details LastModified Time 10/24/2023 10/24/2023 78 year old male with a history of nephrolithiasi s, benign prostatic hyperplasia with lower urinary tract symptoms, erectile dysfunction. Not available 10/24/2023 10:34:59 Plan of Treatment Reminders Order Date Submit Date Provider Last Modified By Organization Details Last Modified Time Details Appointments None recorded . Lab None recorded . Referral None recorded . Procedures None recorded . Surgeries None recorded . Imaging US, kidney - Due October 2024 024 10/24/19 24 [email or web address] [facility], [address], [place], [address], 10:41:02 Medication Orders None recorded . Patient TargetsNo targets recorded. Patient Instructions Encounter Date Encounter Id Patient Instructions Last Modified By Organization Details Last Modified Time 10/24/2023 [id number] Nephrolithiasis: He remains stone free. He is [...] is not bothered enough to do this. Not available 10/24/2023 09:11:59 Reason for Referral None Reported. Results Created Date Observation Date Name Description Value Unit Range Abnormal Flag LastModifiedBy Organization Detail LastModifiedTime 10/04/19 24 10/03/2023 Benjamin ISAACS ation record ed. [email or web address], [place], [address], 10/04/2023 12:03:10 Result Notes None recorded. Problems Name Status Onset Date Resolution Date Notes Provider Name and Address Organization Details Recorded Time Primary erectile dysfunction Active 024 Twan Meath null, [facility] 10/16/2023 09:04:40 History of calculus of kidney Active 024 Twan Meath null, [facility] 10/16/2023 09:04:45 Lower urinary tract symptoms due to benign prostatic hypertrophy Active 024 Twan Meath null, [facility] 10/16/2023 09:04:52 Temporomandibular bchjm-yklw-ihvskqjd ion syndrome Active 024 Twan Meath null, [facility] 10/16/2023 09:05:40 Rheumatoid arthritis Active 024 Twan Meath null, [facility] 10/16/2023 09:05:46 Obstructive sleep apnea syndrome Active 024 Twan Meath null, [facility] 10/16/2023 09:05:50 Coronary arteriosclerosis Active 024 Twan Meath null, [facility] 10/16/2023 09:05:57 Osteoarthritis Active 024 Twan Meath null, [facility] 10/16/2023 09:06:07 Hypertensive disorder Active 024 Twan Meath null, [facility] 10/16/2023 09:06:12 Hyperlipidemia Active 024 Twan Meath null, [facility] 10/16/2023 09:06:39 Problem Notes None recorded. Procedures Surgical History Date Name Laterality Status Provider Name and Address Organization Details Recorded Time 10/24/19 24 COMPLEX VISIT completed Bobby Bright MD [address] [facility],[address], [place], [address], [facility] 10/24/2023 09:13:00 10/24/19 24 Past Data Reviewed completed Bobby Bright MD [address] [facility],[address], [place], [address], [facility] 10/24/2023 09:13:01 07/17/19 10 Diagnostic colonoscopy completed Not Available Health Note 10/24/2022 12:07:29 Insert epicard eltrd open completed Not Available Health Note 10/24/2022 12:07:29 Fragmenting of kidney stone completed Not Available Health Note 10/24/2022 12:07:29 Removal of sperm duct(s) completed Not Available Health Note 10/24/2022 12:07:29 Imaging Results None recorded. Procedure Notes None recorded. Medical Equipment None Reported. Allergies Allergen ID Allergen Name Allergen Category Reaction Reaction Severity Criticality Documentation Date Start Date Code Code System Note Provider Name and Address Organization Details Recorded Time [id number] leflunomi de medicatio n other Not available Not available 10/24/2022 45370 RxNorm diare hunter Not Available Health Note 12:07:29 Medications Name Sig Start Date Stop Date Status Note LastModified by Organization Details LastModified Time metformin 500 mg tablet 10/25 completed HN: Patient reports no longer taking Not Available Not Available Not Available doxycycli ne hyclate 100 mg capsule 10/23 completed Not Available Not Available Not Available hydrocodo ne 5 mg-acetam inophen 325 mg tablet 10/25 completed HN: Patient reports no longer taking Not Available Not Available Not Available clopidogr el 75 mg tablet active Not Available Not Available Not Available tramadol 50 mg tablet 10/23 completed Not Available Not Available Not Available oxycodone -acetamin ophen 5 mg-325 mg tablet 10/23 completed Not Available Not Available Not Available methotrex ate sodium 2.5 mg tablet active Not Available Not Available Not Available benzonata te 100 mg capsule 10/23 completed Not Available Not Available Not Available cephalexi [...] Not Available furosemid e 20 mg tablet 10/23 completed Not Available Not Available Not Available gabapenti n 100 mg capsule active Not Available Not Available Not Available hydroxych loroquine 200 mg tablet active Not Available Not Available Not Available lisinopri l 2.5 mg tablet 10/23 completed Not Available Not Available Not Available amoxicill in 875 mg-potass ium clavulana te 125 mg tablet 10/23 completed Not Available Not Available Not Available rosuvasta tin 20 mg tablet active Not Available Not Available Not Available metoprolo l tartrate 25 mg tablet active Not Available Not Available Not Available Vitals Date Recorded Body mass index (BMI) Body height Body weight Provider Name and Address Organization Details Last Updated DateTime 10/24/2023 36.2 kg/m2 175.26 cm 128997.262 071008 g Not Available Health Note 10/24/2023 08:31:06 Social History Question Answer Notes LastModified by Organizat ion Details LastModified Time Tobacco Smoking Status Former Smoker Not Available Health Note 10/22/2023 12:40:40 What Is Your Level Of Alcohol Consumption? None Information not available 10/24/2023 What Is Your Level Of Caffeine Consumption? Occasional [email or web address] Information not available 10/22/2023 How Much Tobacco Do You Chew? None [email or web address] Information not available 10/22/2023 Do You Or Have You Ever Used E-cigarettes Or Vape? Never Used Electronic Cigarettes [email or web address] Information not available 10/22/2023 When Did You Quit Smoking? 16+yearssinjoaquina guzman Information not available 10/24/2023 What Was The Date Of Your Most Recent Tobacco Screening? 10/24/2023 [email or web address] Information not available 10/22/2023 What Is Your Relationship Status? [email or web address] Information not available 10/22/2023 Are You Sexually Active? No [email or web address] Information not available 10/22/2023 Do You Or Have You Ever Used Smokeless Tobacco? Never Used Smokeless Tobacco [email or web address] Information not available 10/22/2023 How Much Tobacco Do You Smoke? 0.5 PPD Information not available 10/24/2023 Do You Use Any Illicit Or Recreational Drugs? No [email or web address] Information not available 10/22/2023 Has Tobacco Cessation Counseling Been Provided? No Information not available 10/24/2023 How Many Years Have You Smoked Tobacco? 42 [email or web address] Information not available 10/22/2023 Do You Or Have You Ever Used Any Other Forms Of Tobacco Or Nicotine? No Information not available 10/24/2023 How Many Days In The Past Year Have You Consumed 5 Or More Drinks? 0 [email or web address] Information no t available 10/22/2023 Sex: Male Functional Status None recorded. Mental Status None recorded. Family History Relationship Description Onset Age of this Age Resolved Age Notes Father Family history of ca rdiac disorder Mother Malignant neoplasm o f liver Medical History Condition Response High Blood Pressure N Kidney Stones Y Lung Disease N Depression N GERD/Acid Reflux N Sexually Transmitted Infection N Diabetes N Bleeding Disorder N Cancer N High Cholesterol N Heart Disease Y Immunizations Vaccine Type Date Status Provider Name and Address Organization Details Recorded Time SARS-COV-2 (COVID-19) vaccine, UNSPECIFIED 05/11/2023 completed Twan [facility] 10/24/2023 10:29:35 pneumococcal, unspecified formulation 07/17/2000 completed Not Available Health Note 10/22/2023 12:40:44 influenza, unspecified formulation 07/17/2000 completed Not Available Health Note 10/22/2023 12:40:44 Influenza vaccine, quadrivalent, adjuvanted 05/11/2023 completed Twan Kai null, [facility] 10/24/2023 10:29:35 COVID-19, mRNA, LNP-S, bivalent, PF, 30 mcg/0.3 mL dose 12/28/2022 [facility] 10[facility]24/2023 10:29:35 COVID-19, mRNA, LNP-S, PF, 50 mcg/0.5 mL 05/11/2023 completed Twan Meat null, [facility] 10/24/2023 10:29:35 pneumococcal, unspecified formulation 04/16/2022 completed Yane Lopez null, [facility] 02/10/2023 11:52:36 influenza, trivalent, adjuvanted 04/07/2017 completed Yane Lopez null, [facility] 02/10/2023 11:52:36 influenza, trivalent, adjuvanted 04/26/2018 completed Yane Lopez null, [facility] 02/10/2023 11:52:36 zoster recombinant 07/30/2020 completed Yane Lopez null, [facility] 02/10/2023 11:52:36 zoster recombinant 04/23/2020 completed Yane Lopez null, [facility] 02/10/2023 11:52:36 Influenza vaccine, quadrivalent, adjuvanted 04/07/2022 completed Yane Lopez null, [facility] 02/10/2023 11:52:36 Influenza vaccine, quadrivalent, adjuvanted 04/21/2021 completed Yane Lopez null, [facility] 02/10/2023 11:52:36 Influenza vaccine, quadrivalent, adjuvanted 04/23/2020 completed Yane Lopez null, [facility] 02/10/2023 11:52:36 COVID-19, mRNA, LNP-S, PF, 30 mcg/0.3 mL dose 09/09/2020 completed Yane Lopez null, [facility] 02/10/2023 11:52:36 COVID-19, mRNA, LNP-S, PF, 30 mcg/0.3 mL dose 09/30/2020 completed Yane Lopez null, [facility] 02/10/2023 11:52:36 COVID-19, mRNA, LNP-S, PF, 30 mcg/0.3 mL dose 04/23/2021 completed Yane Lopez null, [facility] 02/10/2023 11:52:36 COVID-19, mRNA, LNP-S, PF, 30 mcg/0.3 mL dose, willie-sucrose 12/16/2021 completed Yane Lopez null, [facility] 02/10/2023 11:52:36 pneumococcal polysaccharide PPV23 08/09/2010 completed Yaneeffie Lopez null, [facility] 02/10/2023 11:52:36 Tdap 02/26/2016 completed Yane Lopez [facility], [facility] 02/10/2023 11:52:36 Pneumococcal conjugate PCV 13 03/30/2015 completed Yane Lopez [facility], [facility] 02/10/2023 11:52:36 zoster live 07/03/2007 completed Yane Lopez null, [facility] 02/10/2023 11:52:36 Influenza, high dose seasonal 03/30/2015 completed Yane Lopez [facility], [facility] 02/10/2023 11:52:36 Influenza, high dose seasonal 04/02/2014 completed Yane Lopez [facility], [facility] 02/10/2023 11:52:36 Influenza, high dose seasonal 04/28/2016 completed Yane Lopez [facility], [facility] 02/10/2023 11:52:36 Influenza, seasonal, injectable 04/17/2008 completed Yane Lopez [facility] 02/10/2023 11:52:36 Influenza, seasonal, injectable 04/22/2009 completed Yane Lopez [facility], [facility] 02/10/2023 11:52:36 Influenza, seasonal, injectable 05/02/2003 completed Yane Lopez [facility] 02/10/2023 11:52:36 Influenza, seasonal, injectable 05/14/2010 completed Yane Lopez null, [facility] 02/10/2023 11:52:36 Influenza, seasonal, injectable 05/23/2006 completed Yane Lopez [facility], [facility] 02/10/2023 11:52:36 Influenza, seasonal, injectable 05/30/2013 completed Yane Lopez null, [facility] 02/10/2023 11:52:36 Influenza, seasonal, injectable, preservative free 04/15/2011 completed Yane Olpez [facility] 02/10/2023 11:52:36 Td (adult), 5 Lf tetanus toxoid, preservative free, adsorbed 05/23/2006 completed Yane aguilar [facility] 02/10/2023 11:52:36 influenza, injectable, quadrivalent, preservative free 04/05/2019 completed Yane aguilar [facility] 02/10/2023 11:52:36 Past Encounters Encounter ID Performer Location Encounter Start Date Encounter Closed Date Diagnosis/Indication Diagnosis SNOMED-CT Code [id number] Bobby Bright MD [facility] [address] [place] [address] 10/24/2023 08:30:58 10/24/2023 10:41:02 Primary erectile dysfunction [id number] History of calculus of kidney [id number] Lower urin kristen tract symptoms due to benign prostatic hypertrophy [id number] Health Concerns Section Related Observation LastModified by Organization Detai ls LastModified Time None Recorded Concern Status LastModified by Organization Details LastModified Time None Recorded Payers Encounter Date Sequence Insurance Name Policy Number Policy Wilson Covered Member ID Wilson Member ID Guarantor Name 10/24/2023 1 [place] [employer] Tre Lott [id number] Tre Lott Notes Date Note Type Note Provider Name and Address Organization Details Recorded Time 10/24/2023 text/html HPI Notes: This is a 78 year old male who is here for the ongoing management of nephrolithiasis. He is status post cystoscopy, left ureteroscopy, laser lithotripsy, and left ureteral stent placement on 08/05/2019. Stone analysis: calcium oxalate He underwent a surveillance renal ultrasound on 10/03/2023 which showed no new stones or hydronephrosis. [...] his nitrates for chest pain. He is not bothered. Bobby Bright MD [address] [place] [address],[address], [place], [address], [facility] 10/24/2023 10:38:25
--- OUTSIDE RECORDS SUMMARY | 2023-11-25 19:37 | XMS_ITS | Clinical Summary ---
Author Name Unknown Organization [employer] [facility] [employer] Address [place], [place] [address] Care Team Providers Care Supervisor Pipelines Name Role Phone YoselinCharline beverly MD Primary Care Provider Luigi Menon Unavailable [phone] Allergies Active Allergy Reactions Criticality Noted [...] Max acetaminophen dose: 4000mg in 24 hrs. Active miscellaneous medical supply [facility] [place] FOR HOME USE 09/10/2018 Act ismael methotrexate (RHEUMATREX) 2.5 mg tablet Take by mouth. Take 5 tablets (dose = 12.5 mg) by mouth on Wednesdays, and 4 tablets (dose = 10 mg) on . Total weekly dose = 22.5 mg 04/22/2019 Active vitamin e 400 unit capsule Take 1 Capsule (400 units) by mouth once daily. 0 03/10/2021 Active ascorbic acid, vitamin C, (Vitamin C) 500 mg tablet Take 1 Tablet (500 mg) by mouth once daily. 0 03/10/2021 Active carboxymethylcellul ose 0.5% (Refresh Tears) 0.5 % drop ophthalmic drops Place 1-2 Drops into both eyes every morning. And may take additional once daily as needed. 0 03/10/2021 Active CPAPIndications:Obs tructive sleep apnea CPAP machine for home use [...] of use: Daily 0 03/10/2021 Active VITAMINS A,C,T-WXLN-QAIIGY (Ocuvite PreserVision) 7,160 unit- 113 mg-100 unit tablet Take 1 Tablet by mouth 2 times daily. Active aspirin chewable 81 mg chewable tabletIndications:N STEMI (non-ST elevated myocardial infarction) (HC) Take 1 Tablet by mouth or nasogastric tube once daily. 90 Tablet 3 04/22/2021 Active hydrOXYchloroQUINE (PLAQUENIL) 200 mg tablet Take 1 Tablet by mouth 2 times daily. 12/14/2020 Active rosuvastatin (CRESTOR) 20 mg tabletIndications:N STEMI (non-ST elevated myocardial infarction) (HC) Take 1 Tablet (20 mg) by mouth at bedtime. 90 Tablet 3 12/28/2022 Active metoprolol tartrate (LOPRESSOR) 25 mg tabletIndications:N STEMI (non-ST elevated myocardial infarction) (HC),Essential hypertension Take 0.5 Tablets (12.5 mg) by mouth two times daily. 90 Tablet 3 12/28/2022 Active gabapentin (NEURONTIN) 100 mg capsuleIndications: Low back pain radiating to left leg Take 2 Capsules (200 mg) by mouth at bedtime. 180 Capsule 3 12/28/2022 Active clopidogreL (PLAVIX) 75 mg tabletIndications:N STEMI (non-ST elevated myocardial infarction) (HC) Take 1 Tablet (75 mg) by mouth once daily. 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 Up to 3 tablets in 15 minutes. 25 Tablet 3 08/11/2023 Active traMADoL (ULTRAM) 50 mg tabletIndications:P rimary osteoarthritis of both hips Take 1 Tablet (50 mg) by mouth 2 times daily if needed for Pain. 4 Tablet 09/27/2023 Active benzonatate (Tessalon Perles) 100 mg capsuleIndications: LRTI (lower respiratory tract infection) Take 1 Capsule (100 mg) by mouth 3 times daily if needed for Cough. 30 Capsule 10/16/2023 Active Active Problems Problem Noted Date Diagnosed [...] Encounters Date Type Department Care Team Description 10/24/2023 Transcribe Orders [facility] [address] [place] [address] Bobby Bright MD 10/16/2023 2:05 PM CDT Office Visit [facility] [address] [place] [address] Morena Estevez PA Cough (Started last Monday) 10/16/2023 Travel 10/03/2023 10:30 AM CDT Ancillary Procedure [facility] [address] [place] [address] 10/03/2023 Travel 09/27/2023 12:45 PM CDT Office Visit [facility] [address] [place] [address] Tamara Boswell PA Hip Pain/problem (Right Hip Pain - follow up ); Immunization/Inject ion 09/27/2023 Travel from Last 3 Months Immunizations Name Administration Dates Next Due AMB INFLUENZA IIV3 (AGE 65+ YRS) PF (Flu Clinic Only) 04/26/2018,04/07/2017 AMB Influenza, IIV3 (Age >=3 years)(Flu Clinic Only) 05/30/2013,05/14/2010,04/22/2009 AMB Influenza, IIV4 PF (=>6 mos Flulaval,Fluzone Fluarix)(Flu Clinic Only) 04/05/2019 Amb Influenza, Inact (High-d ose) (Flu Clinic Only) 04/28/2016 COVID-19 Vaccine Spikevax (M oderna 50mcg/0.5mL) 12YO+ 7570-8028 Formula PF 05/11/2023 COVID-19 vaccine (Pfizer-Bio NTech 30mcg/0.3mL) 12YO+ BIVALENT PF, MDV 12/28/2022 COVID-19 vaccine (Pfizer-Bio NTech 30mcg/0.3mL) 12YO+ DORIAN-SUCROSE PF, MDV 12/16/2021 COVID-19 vaccine (Pfizer-Bio NTech 30mcg/0.3mL) PF, MDV 12/16/2021,04/23/2021,09/30/2020,2020 Influenza Virus, Unspecified 04/16/2022,04/23/20 20 Influenza, High-dose Inactivated 03/30/2015,03/17 Influenza, IIV3 (Age >=3 years) 04/15/20 11,04/17/2008,05/11/2007,2005,05/02/2003 Influenza, Inactivated AIIV4 (Age 65+ Years) Preserv Free 05/11/2023,04/07/2022,04/21/2021,2019 Pneumococcal Poly,23-Valent (Pneumovax) 08/09/2010 Pneumococcal conj 13-Valent (Prevnar 13) 03/30/2015 Pneumococcal, Unspecified 04/16/2022 Td (Age >=7 Years) 05/23/2006 Tdap 02/26/2016,05/17/2006 Zoster (Shingrix-RZV, recombinant) 07/30/2020, Zoster (Zostavax-ZVL, live) 07/03/2007 Family History Medical History Relation Name Comments Good Health Brother 1 Good Health Brother 2 Other Sister obesity Relation Name Status Comments Brother 1 Brother 2 Father (Age 57) ID Maternal Grandfather Maternal Grandmother old ag e Mother (Age 48) cirrhosis- not alcohol related Paternal Grandfather DM Paternal Grandmother CVA Sister Social History Tobacco Use Types Packs/Day Years Used Date Smoking Tobacco: Former Cigarettes 1.5 20 0 09/14/1976 - 09/14/1996 Smokeless Tobacco: Never Tobacco Cessation:Counseling Given: Not Answered Alcohol Use Standard Drinks/Week Comments Yes 0 (1 standard drink = 0.6 oz pur e alcohol) less than monthly PHQ-2 Answer Date Recorded PHQ-2 TOTAL SCORE 0 12/28/2022 Social Connections Answer Date Recorded Frequency of Communication with Friends and Fami ly Not on file 2021 Alcohol Use Answer Date Recorded How often do you have a drink containing alcohol ? 1 10/16/2023 How many drinks containing a lcohol do you have on a typical day when you are drinking? 0 10/16/2023 How often do you have five or more drinks on one occasion? 0 10/16/2023 Financial Resource Strain Answer Date R ecorded Difficulty of Paying Living Expenses Not on file 2021 Difficulty of Paying Living Expenses Not on file 2021 Sex and Gender Information Value Date Recorded Sex Assigned at Not on file Gender Identity Not on file Sexual Orientation Not on file Obstetrics History Last Filed Vital Signs Vital Sign Reading Time Taken Comments Blood Pressure 136/88 10/16/2023 2:11 PM CDT Pulse 47 10/16/2023 2:11 PM CDT Temperature 36.3 ??C (97.4 ??F) 10/16/2023 2:11 PM CD T Respiratory Rate 20 06/30/2021 1:35 PM SHELLFISH MEAT SEPARATOR OPERATOR Oxygen Saturation 100% 10/16/2023 2:11 PM CDT Inhaled Oxygen Concentration - - Weight 111 kg (244 lb 11.2 oz) 10/16/2023 2:11 P M CDT Height 172.7 cm (5' 8) 12/28/2022 1:17 PM CDT Body Mass Index 37.21 12/28/2022 1:17 PM CDT Plan of Treatment Upcoming Encounters Date Type Department Care Team (Late st Contact Info) Description 12/01/2023 10:00 AM CDT Office Visit [facility] [address] [place] [address] 01/02/2024 10:30 AM CDT Office Visit [facility] [address] [place] [address] Lawson Church MD [address] [place] [id number] Health Maintenance Due Date Last Done Comments COVID-19 vaccine series ( season) 2023 05/11/2023, 12/28/2022, 12/16/2021, Additional history exists BMI (ht and wt on same day) for age 18+ 12/29/2023 12/28/2022, 11/30/2022, 12/16/2021, Additional history exists Depression screening for age 12+ 12/29/2023 12/28/2022, 07/30/2020, 03/11/2019, Additional history exists Influenza for age 65+ 03/17/2024 05/11/2023 , 04/16/2022, 04/07/2022, Additional history exists Tetanus booster 02/25/2026 02/26/2016, 01/2006, 05/17/2006 Tdap Completed 02/26/2016, 05/17/2006 Hepatitis C screening for ag e 18-79 Completed 07/29/2020 Zoster (shingles) series for age 50+ Completed 07/30/2020, 04/23/2020, 07/03/2007 Pneumococcal series for age 65+ Completed 04/16/2022, 03/30/2015, 08/09/2010 Medical Devices Implanted Type Area Bicycle Assembler Device Identifier Shelf Expiration Date Model / Serial / Lot Stent Uret [id number] Contour - [id number] Implanted:Qty: 1 on 07/21/2019 by Facundo Motnoya MD at [facility] Left: Ureter [facility] 01/16/2022 [id number]# / / [id number] Stent Uret [id number] Contour - [id number] Implanted:Qty: 1 on 08/05/2019 by Facundo Montoya MD at [facility] Left: Ureter [facility] [id number]# / / [id number] Procedures Procedure Name Priority Date/Time Associated Diagnosis Comments US RENAL BILATERAL Routine 10/03/2023 10 :59 AM CDT Personal history of urinary calculi ANTI HCV Add On 07/29/2020 1:40 PM SHELLFISH MEAT SEPARATOR OPERATOR Need for hepatitis C screening test from Last 3 Months or Most Recently Relevant to Health Maintenance Results * US RENAL BILATERAL (10/03/2023 10:59 AM CDT) Anatomical Region Laterality Modality Abdomen, KIDNEYS Ultrasound 10/03/2023 2:56 PM CDT Impressions 10/03/2023 2:56 PM CDT No evidence of renal calculi. Simple renal cysts. Dictated by Andrew Boles MD @ 10/03/2023 2:56:45 PM (Electronically Signed) Narrative 10/03/2023 2:56 PM CDT For Patients: ??As a result of the Cures Act, medical imaging exams and procedure reports are released immediately into your electronic medical record. ??You may view this report before your referring provider. ??If you have questions, please contact your health care provider. CLINICAL HISTORY: History of urinary calculi COMPARISON: 09/22/2022 TECHNIQUE: Webb scale and color Doppler images were acquired of the kidneys and urinary bladder. FINDINGS: There is no evidence of hydronephrosis, solid mass or calculus. Simple cyst right kidney measures 3.1 x 3.3 x 2.3 cm. Simple cyst left kidney measures 1.5 x 1.6 x 1.3 cm. The right kidney measures 11.1cm in length and the left kidney measures 10.9cm in length. The renal cortex appears of normal thickness. The urinary bladder appears normal. Color Doppler images reveal a normal appearance of both ureteral jets. There is no evidence of bladder calculi or diverticula. Bladder volume 92 cc. Procedure Note Andrew Boles MD - 10/03/2023 For Patients: As a result of the Cures Act, medical imagingexams and procedure reports are released immediately into your electronicmedical record. You may view this report before your referring provider.If you have questions, please contact your health care provider. CLINICAL HISTORY: History of urinary calculi COMPARISON: 09/22/2022 TECHNIQUE: Webb scale and color Doppler images were acquired of the kidneys andurinary bladder. FINDINGS: There is no evidence of hydronephrosis, solid mass or calculus. Simplecyst right kidney measures 3.1 x 3.3 x 2.3 cm. Simple cyst left kidneymeasures 1.5 x 1.6 x 1.3 cm. The right kidney measures 11.1cm in lengthand the left kidney measures 10.9cm in length. The renal cortex appears ofnormal thickness. The urinary bladder appears normal. Color Doppler images reveal a normalappearance of both ureteral jets. There is no evidence of bladder calculior diverticula. Bladder volume 92 cc. IMPRESSION: No evidence of renal calculi. Simple renal cysts. Dictated by Andrew Boles MD @ 10/03/2023 2:56:45 PM (Electronically Signed) Bobby Bright MD US * ANTI HCV (07/29/2020 1:40 PM SHELLFISH MEAT SEPARATOR OPERATOR) HEPATITIS C ANTIBODY Non-React ismael Non-React ismael 07/30/2020 4:39 PM SHELLFISH MEAT SEPARATOR OPERATOR [facility] Comment:Antibodies to HCV no t detected; does not exclude the possibility of exposure to HCV. Blood BLOOD SPECIMEN / Unknown Venipuncture / Unknown 07/29/2020 1:40 PM SHELLFISH MEAT SEPARATOR OPERATOR 07/29/2020 1:40 PM SHELLFISH MEAT SEPARATOR OPERATOR Charline Wyatt MD SEND OUTS [facility] [address] [place] [address], [place] from Last 3 Months or Most Recently Relevant to Health Maintenance Advance Directives Documents on File Type Date Recorded Patient Account Support Analyst Expl anation Healthcare Directive 03/30/2023 10:23 AM d ated 03/22/23 * Full Code (Latest Code Status on File) Date Activated Date Inactivated Comments 04/20/2021 3:02 PM 04/21/2021 5:18 PM Question Answer Comments Code Status Discussion: Discussed * Full Code Date Activated Date Inactivated Comments 04/20/2021 11:49 AM 04/20/2021 3:02 PM Question Answer Comments Code Status Discussion: Not Discussed * Full Code Date Activated Date Inactivated Comments 04/20/2021 11:41 AM 04/20/2021 11:49 AM Question Answer Comments Code Status Discussion: Not Discussed * Full Code Date Activated Date Inactivated Comments 08/05/2019 9:07 AM 08/05/2019 3:55 PM * Full Code Date Activated Date Inactivated Comments 07/20/2019 11:04 PM 07/23/2019 3:07 PM Question Answer Comments Code Status Discussion: Discussed Care Teams Supervisor Pipelines Relationship Specialty Start Date End Date Charline Wyatt MD [address] [place] [address] PCP - General 03/30/10 Luigi Menon [address] [place] [address] Rheumatology 12/28/22
--- OUTSIDE RECORDS SUMMARY | 2023-11-25 19:37 | XMS_ITS | Data Portability ---
Author Name Unknown Address [address] [place] [address] Phone [phone] Organization [facility] Address [address] [place] [address] Care Team Providers Care Strainer Mill Operator Name Role Phone JASPREET QUINTERO) Primary Care Provider Assessment Encounter Date Assessment Date Assessment LastModified by Organization Details LastModified Time 10/25/2022 10/25/2022 77 year old male with a history of nephrolithiasi s, benign prostatic hyperplasia with lower urinary tract symptoms, erectile dysfunction. Not available 10/25/2022 12:51:54 10/24/2023 10/24/2023 78 year old male with [...] - Due October 2024 024 10/24/19 [facility], [address], [place], [address], 10:41:02 US, kidney - Due October 2023 023 10/26/19 23 RACHELLE Eng [facility], [address], [place], [address], 11:59:42 Medication Orders None recorded . Patient TargetsNo targets recorded. Patient Instructions Encounter Date Encounter Id Patient Instructions Last Modified By Organization Details Last Modified Time 10/24/2023 [id number] Nephrolithiasis: He remains stone free. He is [...] to do this. Not available 10/24/2023 09:11:59 10/25/2022 [id number] Nephrolithiasis: He remains stone free. He is [...] bothered enough to do this. Not available 10/25/2022 12:53:32 Reason for Referral None Reported. Results Created Date Observation Date Name Description Value Unit Range Abnormal Flag LastModifiedBy Organization Detail LastModifiedTime 09/24/19 23 09/22/2022 de ISAACS No observ ation record ed. RACHELLE Dillonkrissy [facility] [address], [place], [address], 09/27/2022 09:04:51 10/04/19 24 10/03/2023 de ISAACS No observ ation record ed. [email or web address] [facility] [address], [place], [address], 10/04/2023 12:03:10 Result Notes None recorded. Problems Name Status Onset Date Resolution Date Notes Provider Name and Address Organization Details Recorded Time Primary erectile dysfunction Active 024 LATRICE Gallardo [facility] 10/16/2023 09:04:40 History of calculus of kidney Active 024 LATRICE Gallardo [facility] 10/16/2023 09:04:45 Lower urinary tract symptoms due to benign prostatic hypertrophy Active 024 Twan Meath null, [facility] 10/16/2023 09:04:52 Temporomandibular nqhek-nloj-qarkuauw ion syndrome Active 024 Twan Meath null, [facility] 10/16/2023 09:05:40 Rheumatoid arthritis Active 024 Twan Meath null, [facility] 10/16/2023 09:05:46 Obstructive sleep apnea syndrome Active 024 Twan Meath null, [facility] 10/16/2023 09:05:50 Coronary arteriosclerosis Active 024 Twan Meath null, [facility] 10/16/2023 09:05:57 Osteoarthritis Active 024 Twan Meath null, [facility] 10/16/2023 09:06:07 Hypertensive disorder Active 024 Twan Meath null, [facility] 10/16/2023 09:06:12 Hyperlipidemia Active 024 Twan Meath null, [facility] 10/16/2023 09:06:39 Problem Notes None recorded. Procedures Surgical History Date Name Laterality Status Provider Name and Address Organization Details Recorded Time 10/24/19 24 COMPLEX VISIT completed Bobby Bright MD [address] [place] [address],[address], [place], [address], [facility] 10/24/2023 09:13:00 10/24/19 24 Past Data Reviewed completed Bobby Bright MD [address] [place] [address],[address], [place], [address], [facility] 10/24/2023 09:13:01 07/17/19 10 Diagnostic colonoscopy completed [...] LastModified Time 09/22/2022 US, kidney completed RACHELLE [facility] [address], [place], [address], 09/27/2022 09:04:51 10/03/2023 US, kidney completed luis carlostRomán [facility] [address], [place], [address], 10/04/2023 12:03:10 Procedure Notes None recorded. Medical Equipment None Reported. Allergies Allergen ID Allergen Name Allergen Category Reaction Reaction Severity Criticality Documentation Date Start Date Code Code System Note Provider Name and Address Organization Details Recorded Time 120074 leflunomi de medicatio n other Not available Not available 10/24/2022 75043 RxNorm diare hunter Not Available Health Note [...] Address Organization Details Last Updated DateTime 10/25/2022 714035.1615 5891 g 177.8 cm 35.9 kg/m2 Not Available Health Note 10/25/2022 08:15:59 Date Recorded Body mass index (BMI) Body height Body weight Provider Name and Address Organization Details Last Updated DateTime 10/24/2023 36.2 kg/m2 175.26 cm 536168.262 232367 g Not Available Health Note 10/24/2023 08:31:06 [...] High Blood Pressure N Kidney Stones Y Depression N Lung Disease N GERD/Acid Reflux N Sexually Transmitted Infection N Cancer N High Cholesterol N Diabetes N Bleeding Disorder N Heart Disease Y Immunizations Vaccine Type Date Status Provider Name and Address Organization Details Recorded Time SARS-COV-2 (COVID-19) vaccine, UNSPECIFIED 05/11/2023 [facility] 10:29:35 pneumococcal, unspecified formulation 07/17/2000 completed Not Available Health Note 10/22/2023 12:40:44 influenza, unspecified formulation 07/17/2000 completed Not Available Health Note 10/22/2023 12:40:44 Influenza vaccine, quadrivalent, adjuvanted 05/11/2023 completed Twan aguilar [facility] 10/24/2023 10:29:35 COVID-19, mRNA, LNP-S, bivalent, PF, 30 mcg/0.3 mL dose 12/28/2022 [facility]2023 10:29:35 COVID-19, mRNA, LNP-S, PF, 50 mcg/0.5 mL 05/11/2023 completed Twan aguilar [facility] 10/24/2023 10:29:35 pneumococcal, unspecified formulation 04/16/2022 completed Yane Lopez null, [facility] 02/10/2023 11:52:36 influenza, trivalent, adjuvanted 04/07/2017 completed Yane Lopez null, [facility] 02/10/2023 11:52:36 influenza, trivalent, adjuvanted 04/26/2018 completed Yane Lopez null, [facility] 02/10/2023 11:52:36 zoster recombinant 07/30/2020 completed Yane Lopez null, [facility] 02/10/2023 11:52:36 zoster recombinant 04/23/2020 completed Yane Lopez null, [facility] 02/10/2023 11:52:36 Influenza vaccine, quadrivalent, adjuvanted 04/07/2022 completed Yane Lopez null, [facility] 02/10/2023 11:52:36 Influenza vaccine, quadrivalent, adjuvanted 04/21/2021 completed Yane Lopez null, [facility] 02/10/2023 11:52:36 Influenza vaccine, quadrivalent, adjuvanted 04/23/2020 completed Yane Lopez null, [facility] 02/10/2023 11:52:36 COVID-19, mRNA, LNP-S, PF, 30 mcg/0.3 mL dose 09/09/2020 completed Yane Lopez null, [facility] 02/10/2023 11:52:36 COVID-19, mRNA, LNP-S, PF, 30 mcg/0.3 mL dose 09/30/2020 completed Yane Lopez null, [facility] 02/10/2023 11:52:36 COVID-19, mRNA, LNP-S, PF, 30 mcg/0.3 mL dose 04/23/2021 completed Yane Lopez null, [facility] 02/10/2023 11:52:36 COVID-19, mRNA, LNP-S, PF, 30 mcg/0.3 mL dose, willie-sucrose 12/16/2021 completed Yane Lopez null, [facility] 02/10/2023 11:52:36 pneumococcal polysaccharide PPV23 08/09/2010 completed Yane Lopez [facility], [facility] 02/10/2023 11:52:36 Tdap 02/26/2016 completed Yane Jessica [facility], [facility] 02/10/2023 11:52:36 Pneumococcal conjugate PCV 13 03/30/2015 completed Yane Lopez [facility] 02/10/2023 11:52:36 zoster live 07/03/2007 completed Yane Jessica null, [facility] 02/10/2023 11:52:36 Influenza, high dose seasonal 03/30/2015 completed Yane Lopez null, [facility] 02/10/2023 11:52:36 Influenza, high dose seasonal 04/02/2014 completed Yane Lopez null, [facility] 02/10/2023 11:52:36 Influenza, high dose seasonal 04/28/2016 completed Yaneeffie Lopez [facility] 02/10/2023 11:52:36 Influenza, seasonal, injectable 04/17/2008 completed Yane Lopez null, [facility] 02/10/2023 11:52:36 Influenza, seasonal, injectable 04/22/2009 completed Yane Lopez [facility] 02/10/2023 11:52:36 Influenza, seasonal, injectable 05/02/2003 completed Yane Lopez [facility] 02/10/2023 11:52:36 Influenza, seasonal, injectable 05/14/2010 completed Yane Lopez [facility], [facility] 02/10/2023 11:52:36 Influenza, seasonal, injectable 05/23/2006 [facility] 11:52:36 Influenza, seasonal, injectable 05/30/2013 [facility] 11:52:36 Influenza, seasonal, injectable, preservative free 04/15/2011 [facility] 11:52:36 Td (adult), 5 Lf tetanus toxoid, preservative free, adsorbed 05/23/2006 completed Yane LopezLATRICE hurtado [facility] 02/10/2023 11:52:36 influenza, injectable, quadrivalent, preservative free 04/05/2019 completed Yane MorrisonLATRICE hurtado [facility] 02/10/2023 11:52:36 Past Encounters Encounter ID Performer Location Encounter Start Date Encounter Closed Date Diagnosis/Indication Diagnosis SNOMED-CT Code [id number] [facility] [address] [place] [address] 10/25/2022 08:15:52 10/25/2022 13:17:05 Primary erectile dysfunction [id number] History of calculus of kidney 578994651 Lower urin kristen tract symptoms due to benign prostatic hypertrophy [id number] [facility] [address] [place] [address] 10/24/2023 08:30:58 10/24/2023 10:41:02 Primary erectile dysfunction 015306411 History of calculus of kidney 198947586 Lower urin kristen tract symptoms due to benign prostatic hypertrophy [id number] Health Concerns Section Related Observation LastModified by Organization Detai ls LastModified Time None Recorded Concern Status LastModified by Organization Details LastModified Time None Recorded Advance Directives Directive None Recorded Payers Encounter Date Sequence Insurance Name Policy Number Policy Wilson Covered Member ID Wilson Member ID Guarantor Name 10/24/2023 1 [facility]: [employer] [address] [id number] rTe Lott 10/25/2022 1 [facility]: [employer] Tre Lott [id number] Tre Lott Notes Date Note Type Note [...] is fine with this. Bobby Bright MD [address] [place] [address],[address], [place], [address], [facility] 10/25/2022 12:54:44 10/24/2023 text/html HPI Notes: This is a [...] He is not bothered. Bobby Bright MD [address] [place] [address],[address], [place], [address], [facility] 10/24/2023 10:38:25
--- OUTSIDE RECORDS SUMMARY | 2023-11-25 19:37 | XMS_ITS | Encounter Summary ---
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) CREATININE / GFR Routine 09/05/2023 11:5 3 AM [employer]ZING SPRAYER 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) COMPLETE BLOOD COUNT-W/DIFF Routine 09/05/2023 11:53 AM SIZING SPRAYER 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) AST Routine 09/05/2023 11:53 AM SIZING SPRAYER 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) documented in this encounter Results * Complete Blood Count-W/Diff (09/05/2023 11:53 AM SIZING SPRAYER) WBC 7.8 3.5 - 10.5 x10(9)/L 09/05/2023 12:24 PM [facility] RBC 4.35 4.32 - 5.72 x10(12)/L 09/05/2023 12:24 PM [facility] Hemoglobin 13.7 13.5 - 17.5 g/dL 09/05/2023 12:24 PM [facility] HCT 41.6 38.8 - 50.0 % 09/05/2023 12:24 PM [facility] MCV 95.6 80.0 - 100.0 fL 09/05/2023 12:24 PM [facility] MCH 31.5 27.6 - 33.3 pg 09/05/2023 12:24 PM [facility] MCHC 32.9 31.5 - 35.2 g/dL 09/05/2023 12:24 PM [facility] RDW 15.1 11.9 - 15.5 % 09/05/2023 12:24 PM [facility] Platelets 318 150 - 450 x10(9)/L 09/05/2023 12:24 PM [facility] Automated NRBC 0 <=0 /100 WBC 09/05/2023 12:24 PM [facility] Neutrophil Absolute 4.1 1.7 - 7.0 10(9)/L 09/05/2023 12:24 PM [facility] Lymphocyte Absolute 2.6 1.0 - 4.8 10(9)/L 09/05/2023 12:24 PM [facility] Monocyte Absolute 0.8 0.2 - 0.9 10(9)/L 09/05/2023 12:24 PM [facility] Eosinophil Absolute 0.2 0.0 - 0.5 10(9)/L 09/05/2023 12:24 PM [facility] Basophil Absolute 0.1 0.0 - 0.3 10(9)/L 09/05/2023 12:24 PM [facility] Immature Granulocyte % 0.4 0.0 - 0.5 % 09/05/2023 12:24 PM SIZING SPRAYER [facility] Blood Venipuncture / Unknown 09/05/2023 11:53 AM SIZING SPRAYER 09/05/2023 11:53 AM SIZING SPRAYER Luigi Menon MD LAB_1 Performing Organization Address [facility] Co de Phone Number [facility] [address] [place] [address] * AST - Aspartate Aminotransferase (09/05/2023 11:53 AM SIZING SPRAYER) AST (SGOT) 16 10 - 40 U/L 09/05/2023 2:42 PM SIZING SPRAYER [facility] Blood Venipuncture / Unknown 09/05/2023 11:53 AM SIZING SPRAYER 09/05/2023 11:53 AM SIZING SPRAYER Luigi Menon MD LAB_1 Performing Organization Address [facility] de Phone Number [facility] [address] [place] [address] * (ABNORMAL) CREAT - Creatinine (09/05/2023 11:53 AM SIZING SPRAYER) Creatinine 0.70(L) 0.73 - 1.18 mg/dL 09/05/2023 2:42 PM [facility] GFR, Estimated >60 >60 mL/min/1.7 3m2 09/05/2023 2:42 PM [facility] Blood Venipuncture / Unknown 09/05/2023 11:53 AM SIZING SPRAYER 09/05/2023 11:53 AM SIZING SPRAYER Luigi Menon MD LAB_1 Performing Organization Address [facility] de Phone Number [facility] [address] [place] [address] documented in this encounter Visit Diagnoses Diagnosis 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
[2023-11-25 19:47] LABS: Basophils Percent Auto 0.3 % (0.0-3.0); Eosinophils Percent Auto 2.5 % (0.0-7.0); Hematocrit 40.2 % (37.0-53.0); Hemoglobin* 13.4 gm/dL (13.5-17.5); Immature Granulocytes Pct Auto 0.1 %; Lymphocytes Percent Auto 20.3 % (20-44); Mean Corpuscular HGB Conc 33 gm/dL (32-36); Mean Corpuscular Hemoglobin 32 pg (26-34); Mean Corpuscular Volume 97 fL (80-100); Neutrophils Percent Auto 72.8 % (42.0-72.0); Platelet Count* 223 K/uL (140-440); RDW Coefficient of Variation % 15.9 % (11.5-15.5); Red Blood Count 4.16 m/uL (4.30-5.90); White Blood Count* 12.63 K/uL (4.50-11.00)
[2023-11-25 19:53] LABS: Lactate* 1.9 mmol/L (0.5-1.9)
[2023-11-25 19:57] LABS: Slide Review Reflex No
[2023-11-25] MEDS: cefTRIAXone 2 GM in 0.9 % SODIUM CHLORIDE Mini-bag 100 ML IVPB (20:07)
[2023-11-25 20:11] LABS: Albumin* 4.4 g/dL (3.3-5.0); Chloride* 108 mmol/L (96-114); Sodium* 140 mmol/L (135-149)
[2023-11-25 20:12] LABS: Potassium* 3.7 mmol/L (3.6-5.1)
[2023-11-25 20:14] LABS: Anion Gap 4 mEq/L (7-15); Aspartate Amino Transferase* 28 U/L (12-35); Carbon Dioxide* 28 mmol/L (20-32); Creatinine* 0.7 mg/dL (0.5-1.5); Est. Creatinine Clearance* 60.88; Estimated Glomerular Filt Rate 94 ml/min; Total Protein* 7.8 g/dL (6.0-8.3)
[2023-11-25 20:15] LABS: Alanine Aminotransferase* 22 U/L (4-50); Alkaline Phosphatase* 73 U/L (40-150); Blood Urea Nitrogen* 12 mg/dL (7-30); Calcium* 9.2 mg/dL (8.4-10.6); Glucose* 101 mg/dL (60-115)
[2023-11-25 20:17] LABS: C Reactive Protein* 1.5 mg/dL (0.5-1.0)
[2023-11-25 20:31] LABS: Procalcitonin* 0.07 ng/mL (<0.50)
--- NOTE | 2023-11-25 22:51 | PM.IMHP1 ---
Hospitalist- H&P: HPI History of Present Illness Date Seen: 11/25/23 Chief complaint: pain urination; a tinge of red in urine Narrative: Tre Lott is a 78 year old male with history of coronary artery disease, rheumatoid arthritis, obstructive sleep apnea and nephrolithiasis who presents with a 1 day history of urinary frequency, urgency, dysuria and hematuria. Patient reports that yesterday he had onset of an urge to void very frequently. He was producing minimal amounts of urine. He did see some blood in it. He did not have back pain or flank pain or abdominal pain. He has but not been nauseated. He has felt chilled and feverish at times. No nausea or vomiting. No diarrhea. Previous history of nephrolithiasis with repeat surgeries to remove kidney stones, calcium oxalate. He had an ultrasound on 10/03/2023 showing no new kidney stones. He his urologist does report that he has BPH with lower urinary symptoms. Patient reports that he does get up at night 1-3 times to void. He saw his urologist on 10/24/2023 and declined a prescription for Flomax. He was noted to be somewhat forgetful the emergency department. His notes that this is been a problem since his CABG in 1996. She does not think it is different than his baseline. He had coronary artery bypass grafting x4 in 1996 and coronary stent placement 2 or 3 years ago. Review of Systems Narrative: Patient reports that he was feeling fine until the onset of urinary symptoms yesterday [facility] Medical History (Updated 11/25/23 @ 23:06 by Guy Goodman MD) Cognitive impairment ?R41.89 - Other symptoms and signs involving cognitive functions and awareness (ICD-10) Pruritic rash ?L28.2 - Other prurigo (ICD-10) Postoperative hemorrhage Cellulitis ?L03.90 - Cellulitis, unspecified (ICD-10) Calculus of kidney ?N20.0 - Calculus of kidney (ICD-10) Closed left ankle fracture ?S82.892A - Other fracture of left lower leg, initial encounter for closed fracture (ICD-10) NSTEMI (non-ST elevated myocardial infarction) ?I21.4 - Non-ST elevation (NSTEMI) myocardial infarction (ICD-10) Class 3 severe obesity due to excess calories with body mass index (BMI) of 40.0 to 44.9 in adult ?E66.01 - Morbid (severe) obesity due to excess calories (ICD-10) ?Z68.41 - Body mass index [BMI] 40.0-44.9, adult (ICD-10) Pyelonephritis ?N12 - Tubulo-interstitial nephritis, not specified as acute or chronic (ICD-10) Sensorineural hearing loss (SNHL) of both ears ?H90.3 - Sensorineural hearing loss, bilateral (ICD-10) Impaired fasting glucose ?R73.01 - Impaired fasting glucose (ICD-10) Rheumatoid arthritis ?M06.9 - Rheumatoid arthritis, unspecified (ICD-10) CORY (obstructive sleep apnea) ?G47.33 - Obstructive sleep apnea (adult) (pediatric) (ICD-10) Degenerative joint disease of left knee ?M17.12 - Unilateral primary osteoarthritis, left knee (ICD-10) CAD (coronary artery disease) ?I25.10 - Atherosclerotic heart disease of [place] coronary artery without angina pectoris (ICD-10) Edema ?R60.9 - Edema, unspecified (ICD-10) Radial styloid tenosynovitis ?M65.4 - Radial styloid tenosynovitis [[place]] (ICD-10) Lumbago ?M54.50 - Low back pain, unspecified (ICD-10) Unspecified sleep apnea ?G47.30 - Sleep apnea, unspecified (ICD-10) Other and unspecified hyperlipidemia ?E78.5 - Hyperlipidemia, unspecified (ICD-10) Unspecified essential hypertension ?I10 - Essential (primary) hypertension (ICD-10) Surgical History History of ectropion repair ?Z98.890 - Other specified postprocedural states (ICD-10) History of phacoemulsification of cataract of both eyes with intraocular lens implantation ?Z98.41 - Cataract extraction status, right eye (ICD-10) ?Z98.42 - Cataract extraction status, left eye (ICD-10) ?Z96.1 - Presence of intraocular lens (ICD-10) History of tooth extraction ?K08.409 - Partial loss of teeth, unspecified cause, unspecified class (ICD-10) Hx of colonoscopy ?Z98.890 - Other specified postprocedural states (ICD-10) Hx of coronary artery bypass graft ?Z95.1 - Presence of aortocoronary bypass graft (ICD-10) Social History (Updated 11/25/23 @ 22:59 by Guy Goodman MD) Narrative: Patient lives with his in [place]. Son lives nearby. is healthcare power of energy attorney. Code status is DNR. Quit smoking when he had his coronary artery bypass in 1996. Drinks alcohol about once a month. Smoking Status: Former smoker What tobacco products do you use: cigarettes Smoking packs per day: 1.5 Smoking cigarettes per day: 30.0 Years smoked: 35 Smoking pack-years: 52.50 Smoking quit date/years: >15 years ago and pipe Do you use any of these nicotine containing products: None Second hand tobacco smoke exposure: No How often do you have a drink containing alcohol: monthly or less Alcohol type: beer and wine How many standard drinks containing alcohol do you have on a typical day: 1 or 2 How often do you have six or more drinks on one occasion: Never AUDIT-C Alcohol total score: 1 Non-prescribed substance use: denies use Caffeine: Yes (RARE) service: No Meds Home Medications and Allergies Home Medications Medication Instructions Recorded Confirmed Type ascorbic acid (vitamin C) 500 mg 500 mg PO DAILY 04/15/22 11/25/23 History capsule,extended release (Vitamin C) aspirin 81 mg chewable tablet 81 mg PO DAILY 04/15/22 11/25/23 History clopidogrel 75 mg tablet (Plavix) 75 mg PO DAILY 04/15/22 11/25/23 History gabapentin 100 mg capsule 200 mg PO QHS 04/15/22 11/25/23 History (Neurontin) hydroxychloroquine 200 mg tablet 400 mg PO DAILY 04/15/22 11/25/23 History (Plaquenil) methotrexate sodium 2.5 mg tablet 12.5 mg PO 2XW 04/15/22 11/25/23 History metoprolol tartrate 25 mg tablet 12.5 mg PO BID 04/15/22 11/25/23 History nitroglycerin 0.4 mg sublingual 0.4 mg sublingual Q5-15M PRN 04/15/22 11/25/23 History tablet rosuvastatin 20 mg tablet (Crestor) 20 mg PO DAILY 04/15/22 11/25/23 History vitamin A-vitamin C-vit E-min 1 tab PO BID 04/15/22 11/25/23 History tablet Allergies Allergy/AdvReac Type Severity Reaction Status Date / Time leflunomide Allergy Mild Diarrhea Verified 09/12/23 13:09 Exam Narrative: Exam Narrative: He is alert and appears in no distress. He has some difficulty answering specific questions about his health history and his medications. He defers to his to answer. He is oriented to his circumstances. Eyes normal. Oropharynx with small airway. Otherwise normal. Neck is supple without mass or adenopathy. No stridor. No jugular venous distension. Respirations are clear to auscultation. Good air exchange all lung colbert. Cardiovascular: S1, S2, regular rate and rhythm. No murmur gallop or rub. Abdomen: Bowel sounds are present. Abdomen is soft without tenderness or mass. He has no CVA tenderness to percussion. No flank tenderness. He has an urge to void about every 20 minutes with production of minimal amounts of urine. Rectal examination notable for an enlarged but nontender non boggy prostate. Extremities with bilateral 2+ edema. According to his this is at baseline. Const: Vital Signs, click to edit/add: Vital Signs - 24 hr 11/25/23 18:30 11/25/23 18:59 11/25/23 20:30 Temperature 98.3 F 100.0 F H Pulse Rate 91 Pulse Rate [Pulse Oximeter] 76 Respiratory Rate 24 Blood Pressure Blood Pressure [Ri ght Upper Arm] 121/73 Pulse Oximetry 95 96 96 Oxygen Delivery Me thod Room Air Room Air 11/25/23 20:31 11/25/23 21:00 11/25/23 21:05 Temperature Pulse Rate 93 92 97 Pulse Rate [Pulse Oximeter] Respiratory Rate 18 Blood Pressure 128/87 Blood Pressure [Ri ght Upper Arm] Pulse Oximetry 96 94 96 Oxygen Delivery Me thod Room Air 11/25/23 21:06 Temperature Pulse Rate 93 Pulse Rate [Pulse Oximeter] Respiratory Rate Blood Pressure Blood Pressure [Ri ght Upper Arm] Pulse Oximetry 94 Oxygen Delivery Me thod Documenting provider has reviewed patient's vital signs: yes Hospitalist - H&P: Result Labs Labs: Short CBC 11/25/23 Range/Units 19:30 WBC 12.63 H (4.50-11.00) K/uL Hgb 13.4 L (13.5-17.5) gm/dL Hct 40.2 (37.0-53.0) % Plt Count 223 (140-440) K/uL BMP 11/25/23 19:30 Sodium 140 Potassium 3.7 Chloride 108 Carbon Dioxide 28 BUN 12 Creatinine 0.7 Glucose 101 Calcium 9.2 Liver Function 11/25/23 Range/Units 19:30 Total Bilirubin 1.0 (0.1-1.5) mg/dL AST 28 (12-35) U/L ALT 22 (4-50) U/L Alkaline Phosphatase 73 (40-150) U/L Albumin 4.4 (3.3-5.0) g/dL Urine 11/25/23 Range/Units 18:55 Urine Color Yellow (Yellow) Urine Appearance Turbid A (Clear) Urine pH >= 9.0 H (5.0-8.5) Ur Specific [place] 1.020 (1.000-1.030) Urine Protein 3+ A (Negative) Urine Glucose (UA) Negative (Negative) Imaging CT scan - abdomen: Radiologist's impression: INDICATION: dysuria, hx kidney stones. TECHNIQUE: CT abdomen and pelvis without contrast. COMPARISON: None. FINDINGS: Limited evaluation of the intra-abdominal solid organs without IV contrast. Lower chest: Bilateral basilar bronchial wall thickening and linear opacities may reflect atelectasis or scarring. Liver: Normal in size and attenuation. No suspicious masses. Gallbladder and bile ducts: Gallbladder is collapsed. No intra or extrahepatic biliary ductal dilatation. Pancreas: Unremarkable. No mass or inflammation. Spleen: Normal in size. No masses. Adrenal glands: Normal in size. No nodules. Kidneys: Normal in size. No suspicious masses, stones, or hydronephrosis. GI tract: Colonic diverticulosis without evidence of diverticulitis. Normal in caliber. No sign of mass or inflammation. Normal appendix. Vasculature: Abdominal aorta is normal in caliber. Lymph nodes: No lymphadenopathy. Peritoneum/Abdominal Wall: Unremarkable. No sign of mass or infiltration. No free air or significant free fluid. Pelvis: Mild circumferential bladder wall thickening. No pelvic masses. Bones: Unremarkable for age. IMPRESSION: 1. No renal or ureteral stones identified. No hydronephrosis or hydroureter. 2. Mild circumferential bladder wall thickening may be related to cystitis. Correlate with UA. 3. Colonic diverticulosis without evidence of diverticulitis. Assessment and Plan Assessment and plan (1) Urinary tract infection: Problem comment: Abnormal urinalysis, and CT scan, classic UTI symptoms, fever and chills and borderline elevated white count. Admit to observation. Status: Acute (2) Cognitive impairment: Problem comment: Forgetfulness since coronary artery bypass in 1996 according to his . Check [place]. Status: Acute Plan Patient be admitted to observation for ongoing evaluation and treatment of urinary tract infection with concern over potential systemic illness/SIRS. Total Time Spent Total Time Spent: Total time spent is 75 minutes, 50 minutes in coordination of care discussing with patient and his ongoing evaluation management of urinary tract infection.
[2023-11-26 00:21] VITALS: BP 123/62; PULSE 97; RESP 18; TEMP 37.2; O2SAT 94; BMI 36.1
[2023-11-26] MEDS: GABAPENTIN 100 MG CAPSULE 200 MG PO (01:05)
[2023-11-26] MEDS: ROSUVASTATIN CALCIUM 10 MG TABLET 20 MG PO (01:05)
[2023-11-26 04:22] VITALS: BP 143/86; PULSE 83; RESP 20; TEMP 36.4; O2SAT 96
[2023-11-26 06:15] LABS: Basophils Percent Auto 0.3 % (0.0-3.0); Eosinophils Percent Auto 1.1 % (0.0-7.0); Hematocrit 37.9 % (37.0-53.0); Hemoglobin* 12.6 gm/dL (13.5-17.5); Immature Granulocytes Pct Auto 0.1 %; Lymphocytes Percent Auto 13.3 % (20-44); Mean Corpuscular HGB Conc 33 gm/dL (32-36); Mean Corpuscular Hemoglobin 32 pg (26-34); Mean Corpuscular Volume 96 fL (80-100); Monocytes Percent Auto 5.3 % (0.0-11.0); Neutrophils Percent Auto 79.9 % (42.0-72.0); Platelet Count* 198 K/uL (140-440); RDW Coefficient of Variation % 16.1 % (11.5-15.5); Red Blood Count 3.93 m/uL (4.30-5.90); White Blood Count* 11.99 K/uL (4.50-11.00)
[2023-11-26 06:16] LABS: Slide Review Reflex No
--- NOTE | 2023-11-26 06:27 | PC.NURSE ---
Arrived to the floor around 2200. A&O with some forgetfulness. VSS. Pt denies pain. Frequent urge to urinate. Incontinent of urine and voiding small amount in hat. Uses home CPAP at night. Using call light appropriately. ?
[2023-11-26 06:37] LABS: Chloride* 107 mmol/L (96-114); Sodium* 138 mmol/L (135-149)
[2023-11-26 06:39] LABS: Creatinine* 0.7 mg/dL (0.5-1.5); Estimated Glomerular Filt Rate 94 ml/min
[2023-11-26 06:40] LABS: Anion Gap 5 mEq/L (7-15); Blood Urea Nitrogen* 12 mg/dL (7-30); Calcium* 8.7 mg/dL (8.4-10.6); Carbon Dioxide* 26 mmol/L (20-32); Glucose* 125 mg/dL (60-115)
[2023-11-26 08:15] VITALS: BP 108/67; PULSE 77; RESP 20; TEMP 36.7; O2SAT 98
--- NOTE | 2023-11-26 10:52 | P.DS_ITS ---
DS: Providers Provider Time Seen by Provider: 10:40 Date Seen: 11/26/23 Date of admission: 11/25/23 22:07 Primary care physician: Charline Wyatt MD Admitting Clinician: Guy Goodman MD Consults: 11/25/23 22:56 Consult to Occupational Therapy [CONS] Routine Comment: Reason(s) for OT Consult:: Evaluate and Treat Any Restrictions?:: No Restrictions Comment: MOCA Attending Physician on discharge: Brandy Pang MD Date of Discharge: 11/26/23 DS: Diagnosis Discharge Diagnosis (1) Urinary tract infection: Status: Acute Problem details: Abnormal urinalysis, and CT scan, classic UTI symptoms, fever and chills and borderline elevated white count. Doing well, afebrile. Persistent urinary frequency and dysuria. (2) Cognitive impairment: Status: Acute Problem details: Forgetfulness since coronary artery bypass in 1996 according to his . MOCA . DS: Summary Hospital Course Hospital Course: This is a 70-year-old male with coronary artery disease, rheumatoid arthritis, obstructive sleep apnea, nephrolithiasis who presented with urinary frequency, urgency, dysuria, and hematuria for 1 day. He also felt chilled and feverish at times. His previously had some BPH with lower urinary symptoms, including nocturia. He sees urologist and recently declined Flomax. He is forgetful at times, which was noted in the emergency department, but his notes that this has been a problem since his CABG in 1996 and did not think it was any different than baseline. He was admitted for antibiotics and observation. He got a dose of ceftriaxone. Overnight he has done well in has remained afebrile. He has some persistent urinary frequency and dysuria, but is otherwise moving well and is at baseline mentation. I spoke with his , willard marques, over the phone who is agreeable to take him home today. Time Spent with Patient Time attestation: Total time spent providing and/or coordinating discharge services: Exam Narrative: Exam Narrative: General: No acute distress. Awake, alert, oriented x3. No pallor. No jaundice. Oropharynx: Clear. Mucous membranes moist. Cardiovascular: Regular rate and rhythm. No murmurs, gallops, or rubs. Respiratory: Clear to auscultation bilaterally. No wheezes or crackles. Extremities: 2+ pedal edema. Const: Vital Signs, click to edit/add: Vital Signs - 24 hr 11/25/23 18:30 11/25/23 18:59 11/25/23 20:30 Temperature 98.3 F 100.0 F H Pulse Rate 91 Pulse Rate [Pulse Oximeter] 76 Respiratory Rate 24 Blood Pressure Blood Pressure [Ri ght Arm] Blood Pressure [Ri ght Upper Arm] 121/73 Pulse Oximetry 95 96 96 Oxygen Delivery Me thod Room Air Room Air 11/25/23 20:31 11/25/23 21:00 11/25/23 21:05 Temperature Pulse Rate 93 92 97 Pulse Rate [Pulse Oximeter] Respiratory Rate 18 Blood Pressure 128/87 Blood Pressure [Ri ght Arm] Blood Pressure [Ri ght Upper Arm] Pulse Oximetry 96 94 96 Oxygen Delivery Me thod Room Air 11/25/23 21:06 11/26/23 00:21 11/26/23 04:22 Temperature 98.9 F 97.5 F L Pulse Rate 93 Pulse Rate [Pulse Oximeter] 97 83 Respiratory Rate 18 20 Blood Pressure Blood Pressure [Ri ght Arm] 123/62 143/86 H Blood Pressure [Ri ght Upper Arm] Pulse Oximetry 94 94 96 Oxygen Delivery Me thod Room Air Room Air DS: Data Data Completed and Pending Completed studies during hospitalization: Study: CT-Abdomen/Pelvis W/O-11/25/2023 7:29:19 PM Ordering Physician: SILKE Final Report: INDICATION: dysuria, hx kidney stones. TECHNIQUE: CT abdomen and pelvis without contrast. COMPARISON: None. FINDINGS: Limited evaluation of the intra-abdominal solid organs without IV contrast. Lower chest: Bilateral basilar bronchial wall thickening and linear opacities may reflect atelectasis or scarring. Liver: Normal in size and attenuation. No suspicious masses. Gallbladder and bile ducts: Gallbladder is collapsed. No intra or extrahepatic biliary ductal dilatation. Pancreas: Unremarkable. No mass or inflammation. Spleen: Normal in size. No masses. Adrenal glands: Normal in size. No nodules. Kidneys: Normal in size. No suspicious masses, stones, or hydronephrosis. GI tract: Colonic diverticulosis without evidence of diverticulitis. Normal in caliber. No sign of mass or inflammation. Normal appendix. Vasculature: Abdominal aorta is normal in caliber. Lymph nodes: No lymphadenopathy. Peritoneum/Abdominal Wall: Unremarkable. No sign of mass or infiltration. No free air or significant free fluid. Pelvis: Mild circumferential bladder wall thickening. No pelvic masses. Bones: Unremarkable for age. IMPRESSION: 1. No renal or ureteral stones identified. No hydronephrosis or hydroureter. 2. Mild circumferential bladder wall thickening may be related to cystitis. Correlate with UA. 3. Colonic diverticulosis without evidence of diverticulitis. Please note that all CT scans at this facility use dose modulation, iterative reconstruction, and/or weight-based dosing when appropriate to reduce radiation dose to as low as reasonably achievable. Dictated by Lupis Soriano MD @ 11/25/2023 8:18:05 PM (Electronic Signature) Labs on day of discharge: Labs from last 24 hours 11/26/23 11/25/23 11/25/23 05:42 19:30 18:55 WBC 11.99 H 12.63 H RBC 3.93 L 4.16 L Hgb 12.6 L 13.4 L Hct 37.9 40.2 MCV 96 97 MCH 32 32 MCHC 33 33 RDW Coeff of Tim 16.1 H 15.9 H Plt Count 198 223 Neut % (Auto) 79.9 H 72.8 H Lymph % (Auto) 13.3 L 20.3 [place] % (Auto) 5.3 4.0 Eos % (Auto) 1.1 2.5 Baso % (Auto) 0.3 0.3 Neut # (Auto) 9.60 H 9.20 H Lymph # (Auto) 1.60 2.60 [place] # (Auto) 0.60 0.50 Eos # (Auto) 0.10 0.30 Baso # (Auto) 0.00 0.00 Abs Immat Gran (auto) 0.00 0.00 Imm/Tot Granulo (auto) 0.1 0.1 Sodium 138 140 Potassium 4.0 3.7 Chloride 107 108 Carbon Dioxide 26 28 Anion Gap 5 L 4 L BUN 12 12 Creatinine 0.7 0.7 Estimated Creat Clear 56.00 60.88 Estimated GFR 94 94 Glucose 125 H 101 Lactate 1.9 Calcium 8.7 9.2 Total Bilirubin 1.0 AST 28 ALT 22 Alkaline Phosphatase 73 C-Reactive Protein 1.5 H Total Protein 7.8 Albumin 4.4 Procalcitonin 0.07 Urine Color Yellow Urine Appearance Turbid A Urine pH >= 9.0 H Ur Specific [place] 1.020 Urine Protein 3+ A Urine Glucose (UA) Negative Urine Ketones Negative Urine Blood 3+ A Urine Nitrite Positive A Urine Bilirubin Negative Urine Urobilinogen 1.0 Ur Leukocyte Esterase 2+ A Urine RBC 50-100 A Urine WBC >100 A Ur Squamous Epith Cells None Amorphous Sediment Few A Other Sediment Few A Urine Bacteria Many A Urine Yeast Few A Preliminary micro results at discharge 11/25/23 18:55 Urine Culture - Preliminary Urine,Clean Catch Culture in Progress Discharge Plan Discharge Disposition: Home, Self-Care Date of Admission: 11/25/23 22:07 Attending Provider on Discharge: Brandy Pang Primary Care Provider: Charline Wyatt Condition: Improved Anticipated Discharge Date/Time: 11/26/23 11:00 Discharge Medications: New cefpodoxime 200 mg tablet 200 mg PO BID 9 Days Qty: 18 0RF Rx Instructions: must administer with a meal/food Continued ascorbic acid (vitamin C) [Vitamin C] 500 mg capsule, extended release 500 mg PO DAILY aspirin 81 mg tablet,chewable 81 mg PO DAILY clopidogrel [Plavix] 75 mg tablet 75 mg PO DAILY gabapentin [Neurontin] 100 mg capsule 200 mg PO QHS hydroxychloroquine [Plaquenil] 200 mg tablet 400 mg PO DAILY methotrexate sodium 2.5 mg tablet 12.5 mg PO 2XW Rx Instructions: TAKE 5 TABLETS (12.5MG) ON MONDAY, AND 4 TABLETS (10MG) ON MONDAY. TOTAL WEEKLY DOSE = 22.5MG metoprolol tartrate 25 mg tablet 12.5 mg PO BID nitroglycerin 0.4 mg tablet, sublingual 0.4 mg sublingual Q5-15M PRN Rx Instructions: do not exceed 3 doses per episode rosuvastatin [Crestor] 20 mg tablet 20 mg PO DAILY vitamin A-vitamin C-vit E-min Tablet 1 tab PO BID Discharge Orders: Discharge Order (Routine); Ordered 11/26/23 Ordered By: Brandy Pang Activity Level: No Restrictions Discharge Diet: Regular Follow Up Appointments: Charline Wyatt MD [Primary Care Provider] - (1 week) Forms: [facility] Info Instructions
[2023-11-26] MEDS: MULTIVITAMIN/MINERALS 1 TABLET 1 TAB PO (10:57)
[2023-11-26] MEDS: CLOPIDOGREL 75 MG TABLET PO (10:57)
[2023-11-26] MEDS: HYDROXYCHLOROQUINE 200 MG TABLET 400 MG PO (10:57)
[2023-11-26] MEDS: ASPIRIN 81 MG TAB.CHEW PO (10:57)
[2023-11-26] MEDS: METOPROLOL TARTRATE 25 MG TABLET 12.5 MG PO (10:57)
[2023-11-26] MEDS: SODIUM CHLORIDE 0.9 % (FLUSH) 10 ML SYRINGE 5 ML IVF (10:58)
[2023-11-26] MEDS: ASCORBIC ACID 500 MG TABLET PO (10:58)
[2023-11-26] MEDS: CEFPODOXIME PROXETIL 200 MG TABLET PO (12:04)
--- NOTE | 2023-11-26 14:16 | PC.NURSE ---
PATIENT AFEBRILE. DENIED PAIN OR N/V/D. UP WITH SBA AND TOLERATING ACTIVITY WELL. CONTINUES TO EXPERIENCE INTERMITTENT INCONTINENCE AND REPORTS FREQUENCY AND URGENCY ALONG WITH BURNING WITH URINATION. SALINE LOCK DC'D. REVIEWED DC INSTRUCTIONS WITH PATIENT AND HIS . PATIENT DC'D HOME VIA .
== END 2023-11-26 12:33 | disposition home or self-care (01) ==
LOC: ED 19:35 → MEDSURG 22:08
PROVIDERS: Admitting Provider Family Medicine; Emergency Provider Family Medicine; PCP Family Medicine; Visit Provider Family Medicine
DX: N39.0 Urinary tract infection, site not specified (principal); R41.89 Other symptoms and signs involving cognitive functions and awareness; R50.9 Fever, unspecified; R30.0 Dysuria; R35.0 Frequency of micturition; R39.15 Urgency of urination; R32 Unspecified urinary incontinence; B96.4 Proteus (mirabilis) (morganii) as the cause of diseases classified elsewhere; D72.829 Elevated white blood cell count, unspecified; R82.90 Unspecified abnormal findings in urine; N40.1 Benign prostatic hyperplasia with lower urinary tract symptoms; N39.8 Other specified disorders of urinary system; R60.0 Localized edema; K57.30 Diverticulosis of large intestine without perforation or abscess without bleeding; N20.0 Calculus of kidney; G47.33 Obstructive sleep apnea (adult) (pediatric); I10 Essential (primary) hypertension; E78.5 Hyperlipidemia, unspecified; I25.810 Atherosclerosis of coronary artery bypass graft(s) without angina pectoris; I25.10 Atherosclerotic heart disease of native coronary artery without angina pectoris; M06.9 Rheumatoid arthritis, unspecified; Z79.82 Long term (current) use of aspirin; H90.3 Sensorineural hearing loss, bilateral; K08.409 Partial loss of teeth, unspecified cause, unspecified class; Z98.41 Cataract extraction status, right eye; Z98.42 Cataract extraction status, left eye; Z87.442 Personal history of urinary calculi; Z87.891 Personal history of nicotine dependence; Z86.79 Personal history of other diseases of the circulatory system; Z96.1 Presence of intraocular lens; Z95.1 Presence of aortocoronary bypass graft; Z98.890 Other specified postprocedural states; Z66 Do not resuscitate
CPT/HCPCS: 36415; 74176; 80048; 80053; 81001; 83605; 84145; 85025; 86140; 87040; 87086; 87186; 94761; 96365; 97165; 99284; 99285; A9153; A9270; G0378; J0696

== ENCOUNTER 2024-10-21 10:12 | Emergency (ER) | payer BC, SELFPAY ==
[2024-10-21] VITALS (13 sets, daily range): BP systolic 95–124; BP diastolic 67–84; PULSE 75–81; RESP 22; TEMP 36.6; O2SAT 91–95; BMI 30.8
--- OUTSIDE RECORDS SUMMARY | 2024-10-21 10:15 | XMS_ITS | Encounter Summary ---
Author Organization [facility] Address [address], [place] [address] Care Team Providers Care Refractory Worker Name Role Phone Mel Delacruz MD Primary Care Pr ovider Encounter Details Date Type Department Care Team (Late st Contact Info) Description 08/29/2024 Results Follow-Up Rheumatology at [address] [place], [place] [id number] Luigi Menon MD [address] [place] [phone] Social History Tobacco Use Types Packs/Day Years Used Date Smoking Tobacco: Former Smokeless Tobacco: Never Alcohol Use Standard Drinks/Week Comments Yes 0 (1 standard drink = 0.6 oz pur e alcohol) very little Sex and Gender Information Value Date Recorded Sex Assigned at Not on file Legal Sex Male 4:12 PM CDT Gender Identity Not on file Sexual Orientation Not on file documented as of this encounter Plan of Treatment Not on file documented as of this encounter Visit Diagnoses Not on filedocumented in this encounter Care Teams Refractory Worker Relationship Specialty Start Date End Date Mel Delacruz MD [address] [place] [id number] PCP - General 10/18/10 documented as of this encounter
--- OUTSIDE RECORDS SUMMARY | 2024-10-21 10:15 | XMS_ITS | Clinical Summary ---
Author Organization [facility] Address [address] [place] [id number] Care Team Providers Care Medical Lab Tech Instructor Name Role Phone Charline Wyatt MD Primary Care Provider Luigi Menon Unavailable [phone] Allergies Active Allergy Reactions Criticality Noted Date Comments Leflunomide Diarrhea,Other - Samm cribe In Comment Field 01/27/2016 Medications folic acid 800 mcg tablet Take 1 tablet by mouth once daily. 0 10/29/19 10 Active acetaminophen (TYLENOL EXTRA STRENGTH) 500 mg tablet Take 1,000 mg by mouth 2 times daily. Max acetaminophen dose: 4000mg in 24 hrs. Active miscellaneous medical supply [facility] [place] 09/10/19 19 Active methotrexate (RHEUMATREX) 2.5 mg tablet Take by mouth. Take 5 tablets (dose = 12.5 mg) by mouth on Wednesdays, and 4 tablets (dose = 10 mg) on . Total weekly dose = 22.5 mg 04/22/20 19 Active ascorbic acid, vitamin C, (Vitamin C) 500 mg tablet Take 1 Tablet (500 mg) by mouth once daily. 0 03/10/20 21 Active carboxymethylc ellulose 0.5% (Refresh Tears) 0.5 % drop ophthalmic drops Place 1-2 Drops into both eyes every morning. And may take additional once daily as needed. 0 03/10/20 21 Active VITAMINS A,C,E-ZINC-ENGINEERING CLERK PER (Ocuvite PreserVision) 7,160 unit- 113 mg-100 unit tablet Take 1 Tablet by mouth 2 times daily. Active aspirin chewable 81 mg chewable tabletIndicati ons:NSTEMI (non-ST elevated myocardial infarction) (HC) Take 1 Tablet by mouth or nasogastric tube once daily. 90 Tablet 3 04/21/2021 2:01 PM CDT 04/22/20 21 Active hydrOXYchloroQ UINE (PLAQUENIL) 200 mg tablet Take 1 Tablet by mouth 2 times daily. 12/15/19 21 Active nitroglycerin (NITROSTAT) 0.4 mg sublingual tabletIndicati ons:Coronary artery disease involving coronary bypass graft of [place] heart without angina pectoris Place 1 Tablet (0.4 mg) under the tongue every 5 minutes if needed for Chest Pain. Up to 3 tablets in 15 minutes. 25 Tablet 3 08/11/19 24 Active clopidogreL (PLAVIX) 75 mg tabletIndicati ons:NSTEMI (non-ST elevated myocardial infarction) (HC) Take 1 Tablet (75 mg) by mouth once daily in the morning. 90 Tablet 3 06/20/20 24 Active gabapentin (NEURONTIN) 100 mg capsuleIndicat ions:Low back pain radiating to left leg Take 2 Capsules (200 mg) by mouth at bedtime. 180 Capsule 3 06/20/20 24 Active rosuvastatin (CRESTOR) 20 mg tabletIndicati ons:NSTEMI (non-ST elevated myocardial infarction) (HC) Take 1 Tablet (20 mg) by mouth at bedtime. 90 Tablet 3 06/20/20 24 Active CPAPIndication s:Obstructive sleep apnea RESMED CPAP (E0601) machine for home use at pressure: 17 cmw, Choice of mask (A7030 or A7034) w/full face cushion (A7031) x1/mo, nasal cushion (A7032) x2/mo, or nasal pillows (A7033) x 2/mo; Length of Need: 99 months; Frequency of use: Daily 1 Each 11 10/22/19 25 Active CPAPIndication s:Obstructive sleep apnea CPAP machine for home use [...] 99 months, Frequency of use: Daily 0 03/10/20 21 025 Discontin ued(*Med complete/ Regimen complete/ Level of care change) Active Problems Problem Noted Date Diagnosed Date Aortic dilatation 03/15/2023 NSTEMI (non-ST elevated myocardial infarction) 1 Overview (04/21/2021): Coronary angiogram 04/20/21 for NSTEMI: Underwent complex [...] disease) 02/23/2009 Other and unspecified hyperlipidemia 06/29/2007 Overview (06/29/2007): CABG 1997 Unspecified essential hypertension 06/29/2007 Unspecified sleep apnea 06/29/2007 Overview (06/29/2007): CPAP Lumbago 06/29/2007 Overview (06/29/2007): Chronic intermitttent Radial styloid tenosynovitis 06/29/2007 Overview (06/29/2007): tenosynovitis Edema 06/29/2007 Resolved Problems Problem Noted Date Diagnosed Date Resolved Date Routine adult health maintenance 08/24/2017 03/15/2023 Overview (08/24/2017): Colonoscopy 08/2017 diverticulosis , repeat in 10 years Left knee pain 03/17/2009 07/29/2009 Impaired fasting glucose Encounters Date Type Department Care Team Description 10/21/2024 9:30 AM CDT Office Visit [facility] [address] [facility] [id number] Osmani Mora MD Sleep Follow-up (cpap) 10/21/2024 8:15 AM CDT Ancillary Procedure [facility] [address] [facility] [id number] Arrived 10/21/2024 Travel 09/24/2024 10:30 AM CDT Office Visit [facility] [address] [facility] [address] Abigail Hernandez AuD Hearing Problem (Hearing test) 09/24/2024 Travel 09/19/2024 Telephone [facility] [address] [place] [address] Charline Wyatt MD Referral (Audiological Evaluation) from Last 3 Months Immunizations Immunization Administration Dates Next Due AMB INFLUENZA IIV3 (AGE 65+ YRS) PF (Flu Clinic Only) 04/26/2018,04/07/2017 AMB Influenza, IIV3 (Age >=3 years)(Flu Clinic Only) 05/30/2013,05/14/2010,04/22/2009 AMB Influenza, IIV4 PF (=>6 mos Flulaval,Fluzone Fluarix)(Flu Clinic Only) 04/05/2019 Amb Influenza, Inact (High-d ose) (Flu Clinic Only) 04/28/2016 COVID-19 VACCINE SPIKEVAX (M ODERNA 50MCG/0.5ML) 12YO+ PFS 05/11/2023 COVID-19 vaccine (Pfizer-Bio NTech 30mcg/0.3mL) 12YO+ BIVALENT PF, MDV 12/28/2022 COVID-19 vaccine (Pfizer-Bio NTech 30mcg/0.3mL) 12YO+ DORIAN-SUCROSE PF, MDV 12/16/2021 COVID-19 vaccine (Pfizer-Bio NTech 30mcg/0.3mL) PF, MDV 05/11/2023,12/16/2021,04/23/2021,09/30,09/09/2020 Influenza Virus, Unspecified 04/16/2022,04/23/20 20 Influenza, High-dose Inactivated 03/30/2015,03/17 Influenza, IIV3 (Age >=3 years) 04/15/20 11,04/17/2008,05/11/2007,05/23,05/02/2003 Influenza, Inactivated AIIV4 (Age 65+ Years) Preserv Free 05/11/2023,04/07/2022,04/21/2021,04/23 Influenza, Inactivated IIV3 (Age 65+ Years) Preserv Free 04/25/2024 Pneumococcal Poly,23-Valent (Pneumovax) 08/09/2010 Pneumococcal conj 13-Valent (Prevnar 13) 03/30/2015 Pneumococcal, Unspecified 04/16/2022 RSV, Recombinant ADJ Reconst ituted (Arexvy 120MCG/0.5mL) 06/20/2024 Td (Age >=7 Years) 05/23/2006 Tdap 02/26/2016,05/17/2006 Zoster (Shingrix-RZV, recombinant) 07/30/2020, Zoster (Zostavax-ZVL, live) 07/03/2007 Family History Medical History Relation Name Comments Good Health Brother 1 Good Health Brother 2 Other Sister obesity Relation Name Status Comments Brother 1 Brother 2 Father (Age 57) [place] Maternal Grandfather Maternal Grandmother old ag e [...] PHQ-2 Answer Date Recorded PHQ-2 TOTAL SCORE 1 06/20/2024 Social Connections Answer Date Recorded Do you often feel lonely or isolated from those around you? 0 12/01/2023 Alcohol Use Answer Date Recorded How often do you have a drink containing alcohol ? 1 10/16/2023 How many drinks containing a lcohol do you have on a typical day when you are drinking? 0 10/16/2023 How often do you have five or more drinks on one occasion? 0 10/16/2023 Financial Resource Strain Answer Date R ecorded Difficulty of Paying Living Expenses 3 12/01/2023 Difficulty of Paying Living Expenses Not on file 12/01/2023 Food Insecurity Answer Date Recorded Do you worry your food will run out before you are able to buy more? 1 12/01/2023 Transportation Needs Answer Date Record ed Does lack of transportation keep you from medica l appointments? 1 12/01/2023 Does lack of transportation keep you from work, meetings or getting things that you need? 1 12/01/2023 Housing Stability Answer Date Recorded What is your housing situation today? 1 12/01/2023 Utilities Answer Date Recorded Do you have trouble paying f or utilities (for example, heat, electricity, water, phone)? 1 12/01/2023 Sex and Gender Information Value Date Recorded Sex Assigned at Not on file Legal Sex Male 6:13 AM DROP PRESS HAND Gender Identity Not on file Sexual Orientation Not on file Occupation Industry Job Start Date Job End Date [employer] Not on file Not on file Not on file Obstetrics History Last Filed Vital Signs Vital Sign Reading Time Taken Comments Blood Pressure 108/74 10/21/2024 9:08 AM CDT Pulse 88 10/21/2024 9:08 AM CDT Temperature 36.3 C (97.4 F) 10/16/2023 2:11 PM CDT Respiratory Rate 20 06/30/2021 1:35 PM DROP PRESS HAND Oxygen Saturation 95% 10/21/2024 9:08 AM CDT Inhaled Oxygen Concentration - - Weight 105.2 kg (232 lb) 06/20/2024 10:00 AM DROP PRESS HAND Height 172.7 cm (5' 8) 06/20/2024 10:00 AM DROP PRESS HAND Body Mass Index 35.28 06/20/2024 10:00 AM DROP PRESS HAND Plan of Treatment Upcoming Encounters Date Type Department Care Team (Late st Contact Info) Description 10/28/2024 2:20 PM CDT Office Visit [address] [id number] Ethan Ferguson MD [address] [place] [address] Health Maintenance Due Date Last Done Comments COVID-19 vaccine series (9 - Pfizer risk 2023- season) 2024 04/25/2024, 05/11/2023, 05/11/2023, Additional history exists BMI (ht and wt on same day) for age 18+ 06/20/2025 06/20/2024, 12/01/2023, 12/28/2022, Additional history exists Depression screening for age 12+ 06/20/2025 06/20/2024, 06/20/2024, 12/28/2022, Additional history exists Tetanus booster 02/25/2026 02/26/2016, 01/2006, 05/17/2006 Tdap Completed 02/26/2016, 05/17/2006 Hepatitis C screening for ag e 18-79 Completed 07/29/2020 Zoster (shingles) series for age 50+ Completed 07/30/2020, 04/23/2020, 07/03/2007 Pneumococcal series for age 50+ Completed 04/16/2022, 03/30/2015, 08/09/2010 Influenza Vaccine Completed 04/25/2024, , 04/16/2022, Additional history exists RSV vaccine for adults or Completed 06/20/2024 Medical Devices Implanted Type Area Emergency Dispatcher Device Identifier Shelf Expiration Date Model / Serial / Lot Stent Uret [id number] Contour - [id number] Implanted:Qty: 1 on 07/21/2019 by Facundo Montoya MD at [facility] Left: Ureter BS Urology 01/16/2022 [id number]# / / [id number] Stent Uret [id number] Contour - [id number] Implanted:Qty: 1 on 08/05/2019 by Facundo Montoya MD at [facility] Left: Ureter BS Urology [id number]# / / [id number] Procedures Procedure Name Priority Date/Time Associated Diagnosis Comments ANTI HCV Add On 07/29/2020 1:40 PM DROP PRESS HAND Need for hepatitis C screening test from Last 3 Months or Most Recently Relevant to Health Maintenance Results * ANTI HCV (07/29/2020 1:40 PM DROP PRESS HAND) HEPATITIS C ANTIBODY Non-React ismael Non-React ismael 07/30/2020 4:39 PM DROP PRESS HAND [facility] Comment:Antibodies to HCV no t detected; does not exclude the possibility of exposure to HCV. Blood BLOOD SPECIMEN / Unknown Venipuncture / Unknown 07/29/2020 1:40 PM DROP PRESS HAND 07/29/2020 1:40 PM DROP PRESS HAND us Charline Wyatt MD SEND OUTS Final R esult [facility] [address] [place] [address], [place] from Last 3 Months or Most Recently Relevant to Health Maintenance Insurance [facility] MEDICARE PART A HB ONLY MEDICARE PART A HB ONLY Advance Directives Documents on File Type Date Recorded Patient Freezer Worker Expl anation Healthcare Directive 03/30/2023 10:23 AM [...] Comments Code Status Discussion: Discussed Care Teams Medical Lab Tech Instructor Relationship Specialty Start Date End Date Charline Wyatt MD [address] [place] [address] PCP - General 03/30/10 Luigi Menon [address] [place] [address] Rheumatology 12/28/22
--- OUTSIDE RECORDS SUMMARY | 2024-10-21 10:15 | XMS_ITS | Data Portability ---
Author Organization [facility] Stevenlo gy, [facility] Address [address] [place] [address] Care Team Providers Care Hydraulic Rockbreaker Operator Name Role Phone VELASQUEZ STEVEN (TALBOTT) Primary Care Provider Assessment Encounter Date Assessment [...] - Due October 2024 024 10/24/19 24 [email or web address], [address], [place], [address], 08:42:24 US, kidney - Due October 2023 023 10/26/19 23 RACHELLE Eng [facility], [address], [place], [address], 11:59:42 Medication Orders None recorded . Patient TargetsNo targets recorded. Patient Instructions Encounter Date Encounter Id Patient Instructions Last Modified By Organization Details Last Modified Time 10/25/2022 [id number] Nephrolithiasis: He remains stone free. He is [...] to do this. Not available 10/25/2022 12:53:32 10/24/2023 [id number] Nephrolithiasis: He remains stone free. He is [...] to do this. luis [email or web address] Not available 10/24/2023 09:11:59 Reason for Referral None Reported. Results Created Date Observation Date Name Description Value Unit Range Abnormal Flag Note LastModifiedBy Organization Detail LastModifiedTime 10/04/19 24 10/03/2023 de ISAACS Zahra observ ation record ed. [email or web address] , [place], [address], 10/04/2023 12:03:10 Result Notes None recorded. Problems Name Problem SNOMED Code Status Onset Date Resolution Date Notes Provider Name and Address Organization Details Recorded Time Primary erectile dysfunction 810909984 Active 2023 Twan aguilar [facility] 4 09:04:40 History of calculus of kidney 192669274 Active 2023 Twan aguilar [facility] 4 09:04:45 Lower urinary tract symptoms due to benign prostatic hypertrophy 3021764631182 1 Active 2023 Twan aguilar [facility] 4 09:04:52 Temporomand ibular joint-pain- dysfunction syndrome 367402433 Active 2023 Twan Meath null, [facility] 4 09:05:40 Rheumatoid arthritis 32933607 Active 2023 Twan Meat null, [facility] 4 09:05:46 Obstructive sleep apnea syndrome 93704753 Active 2023 Twan Meat null, [facility] 4 09:05:50 Coronary arterioscle rosis 03131561 Active 2023 Twan Meat null, [facility] 4 09:05:57 Osteoarthri tis 165176273 Active 2023 Twan Meat null, [facility] 4 09:06:07 Hypertensiv e disorder 44631997 Active 2023 [facility] Meat null, [facility] 4 09:06:12 Hyperlipide dilip 17173626 Active 2023 [facility] null, [facility] 4 09:06:39 Problem Notes None recorded. Procedures Surgical History Date Name Laterality Status Provider Name and Address Organization Details Recorded Time 10/24/19 24 COMPLEX VISIT completed Bobby Bright MD [address] [place] [address], [phone], [facility] 10/24/2023 09:13:00 10/24/19 24 Past Data Reviewed completed Bobby Bright MD [address] [place] [address],[address], [address], [facility] 10/24/2023 09:13:01 07/17/19 10 Diagnostic colonoscopy completed Not Available Health Note 10/24/2022 12:07:29 Insert epicard eltrd open completed Not Available Health Note 10/24/2022 12:07:29 Fragmenting of kidney stone completed Not Available Health Note 10/24/2022 12:07:29 Removal of sperm duct(s) completed Not Available Health Note 10/24/2022 12:07:29 Imaging Results Imaging Date Name Status LastModified by Organiz ation Details LastModified Time 10/03/2023 US, kidney completed [email or web address] Velasquez trivedi [address], [place], [address], 10/04/2023 12:03:10 Procedure Notes None recorded. Medical Equipment None Reported. Allergies Allergen ID Allergen Name Allergen Category Reaction Reaction Severity Criticality Documentation Date Start Date Code Code System Note Provider Name and Address Organization Details Recorded Time 149423 leflunomi de medicatio n other Not available Not available 10/24/2022 87138 RxNorm diare hunter Not Available Not Available Not Available Medications Name Sig Start Date Stop Date [...] Address Organization Details Last Updated DateTime 10/25/2022 116800.4483 5891 g 177.8 cm 35.9 kg/m2 Not Available Health Note 10/25/2022 08:15:59 Date Recorded Body mass index (BMI) Body height Body weight Provider Name and Address Organization Details Last Updated DateTime 10/24/2023 36.2 kg/m2 175.26 cm 822663.262 850992 g Not Available Health Note 10/24/2023 08:31:06 [...] Many Years Have You Smoked Tobacco? [address] [facility]-685 Information not available 10/22/2023 Do You Or Have You Ever Used Any Other Forms Of Tobacco Or Nicotine? No Information not available 10/24/2023 How Many Days In The Past Year Have You Consumed 5 Or More Drinks? 0 [facility]-685 Information no t available 10/22/2023 Sex: Unknown Functional Status None recorded. Mental Status None recorded. Family History Relationship Description Onset Age of this Age Resolved Age Notes LastModified by Organization Details LastModified Time Father Family history of cardiac disorder [facility] Not available 2022 12:07:28 Mother Malignant neoplasm of liver ameath Not available 2023 10:30:09 Medical History Condition Response Diabetes N Sexually Transmitted Infection N Bleeding Disorder N High Blood Pressure N Kidney Stones Y Cancer N Lung Disease N Depression N High Cholesterol N GERD/Acid Reflux N Heart Disease Y Immunizations Vaccine Type Date Status Note Provider Nam e and Address Organization Details Recorded Time SARS-COV-2 (COVID-19) vaccine, UNSPECIFIED 3 [facility] 10:29:35 pneumococcal, unspecified formulation 1 completed Not Available Health Note 10/22/2023 12:40:44 influenza, unspecified formulation 1 completed Not Available Health Note 10/22/2023 12:40:44 Influenza, adjuvanted, quadrivalent, PF 3 [facility] 10:29:35 COVID-19, mRNA, LNP-S, bivalent, PF, 30 mcg/0.3 mL dose 3 completed [facility] 10/24/2023 10:29:35 COVID-19, mRNA, LNP-S, PF, 50 mcg/0.5 mL 3 completed Twan Meath [facility] 10/24/2023 10:29:35 pneumococcal, unspecified formulation 2 [facility]/10/2023 11:52:36 Influenza, adjuvanted, trivalent, PF 7 completed Yane Lopez null, [facility] 02/10/2023 11:52:36 Influenza, adjuvanted, trivalent, PF 8 completed Yane Lopez null, [facility] 02/10/2023 11:52:36 zoster recombinant 1 completed Yane Lopez null, [facility] 02/10/2023 11:52:36 zoster recombinant 0 completed Yane Lopez null, [facility] 02/10/2023 11:52:36 Influenza, adjuvanted, quadrivalent, PF 2 completed Yane Lopez null, [facility] 02/10/2023 11:52:36 Influenza, adjuvanted, quadrivalent, PF 1 completed Yane Lopez null, [facility] 02/10/2023 11:52:36 Influenza, adjuvanted, quadrivalent, PF 0 completed Yane Lopez null, [facility] 02/10/2023 11:52:36 COVID-19, mRNA, LNP-S, PF, 30 mcg/0.3 mL dose 1 completed Yane Lopez null, [facility] 02/10/2023 11:52:36 COVID-19, mRNA, LNP-S, PF, 30 mcg/0.3 mL dose 1 completed Yane Lopez null, [facility] 02/10/2023 11:52:36 COVID-19, mRNA, LNP-S, PF, 30 mcg/0.3 mL dose 1 completed Yane Lopez null, [facility] 02/10/2023 11:52:36 COVID-19, mRNA, LNP-S, PF, 30 mcg/0.3 mL dose, willie-sucrose 2 completed Yane Lopez null, [facility] 02/10/2023 11:52:36 pneumococcal polysaccharide PPV23 1 completed Yane Lopez null, [facility] 02/10/2023 11:52:36 Tdap 6 completed Yane Lopez null, [facility] 02/10/2023 11:52:36 Pneumococcal conjugate PCV 13 5 completed Yaneeffie MorrisonLopez null, [facility] 02/10/2023 11:52:36 zoster live 7 completed Yane Lopez null, [facility] 02/10/2023 11:52:36 Influenza, high-dose, trivalent, PF 5 completed Yaneeffie MorrisonLopez null, [facility] 02/10/2023 11:52:36 Influenza, high-dose, trivalent, PF 4 completed Yaneeffie MorrisonLopez null, [facility] 02/10/2023 11:52:36 Influenza, high-dose, trivalent, PF 6 completed Yane Marroquinand null, [facility] 02/10/2023 11:52:36 Influenza, split virus, trivalent, preservative 8 completed Yaneeffie Marroquinand null, [facility] 02/10/2023 11:52:36 Influenza, split virus, trivalent, preservative 9 completed Yaneeffie MorrisonLopez null, [facility] 02/10/2023 11:52:36 Influenza, split virus, trivalent, preservative 3 completed Yaneeffie Lopez null, [facility] 02/10/2023 11:52:36 Influenza, split virus, trivalent, preservative 0 completed Yaneeffie Lopez null, [facility] 02/10/2023 11:52:36 Influenza, split virus, trivalent, preservative 6 completed Yane Lopez null, [facility] 02/10/2023 11:52:36 Influenza, split virus, trivalent, preservative 3 completed Yaneeffie Marroquinand null, [facility] 02/10/2023 11:52:36 Influenza, split virus, trivalent, PF 1 completed Yaneeffie MorrisonLopez null, [facility] 02/10/2023 11:52:36 Td (adult), 5 Lf tetanus toxoid, preservative free, adsorbed 6 completed Yane aguilar [facility] 02/10/2023 11:52:36 Influenza, split virus, quadrivalent, PF 9 completed Yane aguilar [facility] 02/10/2023 11:52:36 Past Encounters Encounter ID Performer Location Encounter Start Date Encounter Closed Date Diagnosis/Indication Diagnosis SNOMED-CT Code Diagnosis ICD10 Code Diagnosis Note [id number] Bobby Bright MD [facility] [address] [place] [address] 10/25/2022 08:15:52 10/25/2022 13:17:05 Primary erectile dysfunction 365992634 N52.9 History of calculus of kidney 964465629 Z87.442 Lower urin kristen tract symptoms due to benign prostatic hypertrophy 0655318728 9101 N40.1 [id number] Bobby Bright MD [facility] [address] [place] [address] 10/24/2023 08:30:58 10/24/2023 10:41:02 Primary erectile dysfunction 814086676 N52.9 History of calculus of kidney 847855792 Z87.442 Lower urin kristen tract symptoms due to benign prostatic hypertrophy 8604814869 9101 N40.1 Health Concerns Section Related Observation LastModified by Organization Detai ls LastModified Time None Recorded Concern Status LastModified by Organization Details LastModified Time None Recorded Advance Directives Directive None Recorded Payers Encounter Date Sequence Insurance Name Policy Number Policy Wilson Covered Member ID Wilson Member ID Guarantor Name 10/25/2022 1 [id number] [employer] Tre Lott [id number] Tre Lott 10/24/2023 1 RENÉ: [employer] 113 Tre Lott [id number] Tre Lott Notes Date Note Type Note Provider Name and Address Organization Details Recorded Time 10/25/2022 text/html This is a 77 yea r old male who is here for the ongoing management of nephrolithiasis. He is status post cystoscopy, left ureteroscopy, laser lithotripsy, and left ureteral stent placement on 08/05/2019.Stone analysis: bertha oxalateZhao underwent a surveillance renal ultrasound on 07/20/2022 which showed no new stones or hydronephrosis.He denies gross hematuria or flank pain. He has benign prostatic hyperplasia with lower urinary tract symptoms.He is not on medical therapy and doesn't desire to. He has a history of erectile dysfunction.He is not currently on medical therapy for this.He is unable to take sildenafil due to his nitrates for chest pain.He is fine with this. Bobby Bright MD [address] [place] [address],[address], [place], [address], [facility] 10/25/2022 12:54:44 10/24/2023 text/html This is a 78 yea r old male who is here for the ongoing management of nephrolithiasis. He is status post cystoscopy, left ureteroscopy, laser lithotripsy, and left ureteral stent placement on 08/05/2019.Stone analysis: bertha oxalateZhao underwent a surveillance renal ultrasound on 10/03/2023 which showed no new stones or hydronephrosis.He denies gross hematuria or flank pain. He has benign prostatic hyperplasia with lower urinary tract symptoms.He is not on medical therapy and doesn't desire to. He has a history of erectile dysfunction.He is not currently on medical therapy for this.He is unable to take sildenafil due to his nitrates for chest pain.He is not bothered. Bobby Bright MD [address] [place] [address],[address], [place], [address], [facility] 10/24/2023 10:38:25
--- OUTSIDE RECORDS SUMMARY | 2024-10-21 10:15 | XMS_ITS | Clinical Summary ---
Author Organization [facility] Address [address] [place] [address] Care Team Providers Care Arcade Game Technician Name Role Phone Mel Delacruz MD [...] for each transition of care or referral. [facility] [facility] Allergies Active Allergy Reactions Criticality Noted Date Comments Leflunomide Diarrhea 01/27/2016 Medications folic Acid 800 MCG tablet Take 1 Tablet (800 mcg) by mouth daily. 0 Active gabapentin (NEURONTIN) 100 MG capsule Take 2 Capsules (200 mg) by mouth daily at bedtime. 8 Active acetaminophen (TYLENOL) 325 MG tablet Take 3 Tablets by mouth three times a day as needed for Pain. 100 Tablet 11 9 Active rosuvastatin (CRESTOR) 20 MG tablet Take 1 Tablet (20 mg) by mouth. 1 Active clopidogrel (PLAVIX) 75 MG tablet Take 1 Tablet (75 mg) by mouth daily. 1 Active aspirin EC 81 MG enteric coated tablet Take 1 Tablet (81 mg) by mouth daily. Active nitroglycerin (NITROSTAT) 0.4 MG sublingual tablet Active Multiple Vitamins-Minera ls (PRESERVISION AREDS) TABS Take 1 Tablet by mouth two times a day. Active hydroxychloroqu ine (PLAQUENIL) 200 MG tabletIndicatio ns:Rheumatoid Arthritis Take 1 Tablet (200 mg) by mouth two times a day. Indications: Rheumatoid Arthritis 180 Tablet 3 4 Active methotrexate 2.5 MG tablet Take 9 Tablets (22.5 mg) by mouth once every week. 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 [place] [address] Luigi Menon MD from Last 3 Months Immunizations Immunization Administration Dates Next Due Flu Vac (3+ yrs) 05/30/2013, 1,05/14/2010,2008,04/17/2008,05/11/2007,05/23/2006,1 Flu Vac Preserv Free (3+yrs) 04/15/2011 Influenza IIV3 (Trivalent) Sera Aguileradose, 65+ Yrs (49542) 04/28/2016,03/30/2015,04/02/2014 Influenza IIV4 (Quadrivalent ) 0.5mL (02526) 04/05/2019 Influenza IIV4 (Quadrivalent ) Fluad, 65+ Yrs 05/11/2023,04/07/2022,04/21/2021,2019 Influenza aIIV3 65+ Years (Fluad) 04/25/2024,05/2018,04/07/2017 Influenza, Unspecified Formulation 04/16/2022,,07/17/2000 Moderna COVID-19 12+ 04/25/2024,05/11/2023 PCV13 (Prevnar) 03/30/2015 PPSV23 (Pneumovax) 08/09/2010 Pfizer Bivalent 12+ 12/28/2022 Pfizer Monovalent 12+ 12/16/2021 Pfizer Monovalent 12+ Purple Top 022,04/23/2021,09/30/2020,2020 Pneumococcal, Unspecified Formulation 04/16/2022 ,07/17/2000 Td 05/23/2006 Td, Preservative Free 05/23/2006 Tdap 02/26/2016,05/17/2006 Zoster [...] Sign Reading Time Taken Comments Blood Pressure 107/67 05/22/2024 1:44 PM SECURITY SALES CONSULTANT Pulse 51 05/22/2024 1:44 PM SECURITY SALES CONSULTANT Temperature 36 C (96.8 F) 05/09/2022 2:05 PM CDT Respiratory Rate - - Oxygen Saturation - - Inhaled Oxygen Concentration - - Weight 103.9 kg (229 lb) 05/22/2024 1:44 PM SECURITY SALES CONSULTANT Height 174 cm (5' 8.5) 10/22/2018 1:18 PM CDT Body Mass Index 34.31 10/22/2018 1:18 PM CDT Plan of Treatment Health Maintenance Due Date Last Done Comments Hep C Screening (Preventive Services) 1945 Adult Preventive Visit 1963 RSV (1 - 1-dose 75+ series) 2020 COVID-19 Vaccine ( season) 2024 04/25/2024, 05/11/2023, 05/11/2023, Additional history exists Prediabetes: HGBA1C 06/04/2025 06/04/2024, 12/28/2022, 12/08/2021 DTaP/Tdap/Td (5 - Tdap) 02/25/2026 02/26/20 16, 05/23/2006, 05/23/2006, Additional history exists Abdominal Aortic Aneurysm (AAA) Screening Discontinued 04/08/2015 Zoster/Shingles Completed 07/30/2020, 02/2020, 07/03/2007 Pneumococcal 50+ Yrs Completed 04/16/2022, 03/30/2015, 08/09/2010, Additional history exists Influenza Completed 04/25/2024, 04/17, 04/16/2022, Additional history exists HepA Aged Out No [...] on patient's age to complete this topic Meningococcal B Aged Out No longer el igible based on patient's age to complete this topic Procedures Procedure Name Priority Date/Time Associated Diagnosis Comments COMPLETE BLOOD COUNT-W/DIFF Routine 08/29/2024 1:55 PM SECURITY SALES CONSULTANT 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) CBC AND DIFFERENTIAL PANEL Routine 08/29/2024 1:55 PM SECURITY SALES CONSULTANT 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) AST Routine 08/29/2024 1:55 PM SECURITY SALES CONSULTANT 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) CREATININE / GFR Routine 08/29/2024 1:55 PM SECURITY SALES CONSULTANT 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) from Last 3 Months Results * (ABNORMAL) Creatinine / GFR (08/29/2024 1:55 PM SECURITY SALES CONSULTANT) Pathologist [facility] Creatinine 0.63(L) 0.73 - 1.18 mg/dL 08/29/2024 3:02 PM [facility] GFR, Estimated >60 >60 mL/min/1.7 3m2 08/29/2024 3:02 PM [facility] Blood Venipuncture / Unknown 08/29/2024 1:55 PM SECURITY SALES CONSULTANT 08/29/2024 1:55 PM SECURITY SALES CONSULTANT Luigi Menon MD LAB_1 Final Result Performing Organization Address City/State/[facility] Co de Phone Number [facility] [address] [place] [address] * Complete Blood Count-W/Diff (08/29/2024 1:55 PM SECURITY SALES CONSULTANT) Pathologist [facility] WBC 6.3 3.5 - 10.5 x10(9)/L 08/29/2024 2:28 PM [facility] RBC 4.36 4.32 - 5.72 x10(12)/L 08/29/2024 2:28 PM [facility] Hemoglobin 13.8 13.5 - 17.5 g/dL 08/29/2024 2:28 PM [facility] HCT 42.0 38.8 - 50.0 % 08/29/2024 2:28 PM [facility] MCV 96.3 80.0 - 100.0 fL 08/29/2024 2:28 PM [facility] MCH 31.7 27.6 - 33.3 pg 08/29/2024 2:28 PM [facility] MCHC 32.9 31.5 - 35.2 g/dL 08/29/2024 2:28 PM [facility] RDW 15.0 11.9 - 15.5 % 08/29/2024 2:28 PM [facility] Platelets 203 150 - 450 x10(9)/L 08/29/2024 2:28 PM [facility] Automated NRBC 0 <=0 /100 WBC 08/29/2024 2:28 PM [facility] Neutrophil Absolute 3.5 1.7 - 7.0 10(9)/L 08/29/2024 2:28 PM [facility] Lymphocyte Absolute 1.8 1.0 - 4.8 10(9)/L 08/29/2024 2:28 PM [facility] Monocyte Absolute 0.7 0.2 - 0.9 10(9)/L 08/29/2024 2:28 PM [facility] Eosinophil Absolute 0.2 0.0 - 0.5 10(9)/L 08/29/2024 2:28 PM [facility] Basophil Absolute 0.0 0.0 - 0.3 10(9)/L 08/29/2024 2:28 PM [facility] Immature Granulocyte % 0.3 0.0 - 0.5 % 08/29/2024 2:28 PM [facility] Blood Venipuncture / Unknown 08/29/2024 1:55 PM SECURITY SALES CONSULTANT 08/29/2024 1:55 PM SECURITY SALES CONSULTANT Luigi Menon MD LAB_1 Final Result Performing Organization Address [facility] de Phone Number [facility] [address] [place] [address] * AST (08/29/2024 1:55 PM SECURITY SALES CONSULTANT) Pathologist [facility] AST (SGOT) 36 10 - 40 U/L 08/29/2024 3:02 PM [facility] Blood Venipuncture / Unknown 08/29/2024 1:55 PM SECURITY SALES CONSULTANT 08/29/2024 1:55 PM SECURITY SALES CONSULTANT us Luigi Menon MD LAB_1 Final Result [facility] [address] [place] [address], [facility] from Last 3 Months Insurance MEDICARE PART A [facility] Care Teams Arcade Game Technician Relationship Specialty Start Date End Date Mel Delacruz MD [address] [place] [address] PCP - General 10/18/10
--- NOTE | 2024-10-21 10:48 | ED_ITS ---
HPI - General Adult General Time Seen by Provider: 10:48 Date Seen: 10/21/24 Chief complaint: Cough Stated complaint: cough/bladder infection? Time Seen by Provider: 10/21/24 10:39 Source: patient, family and RN notes reviewed Mode of arrival: ambulatory Limitations: no limitations History of Present Illness HPI narrative: This 79-year-old male with cognitive impairment is accompanied by his for concern of coughing and possible UTI. They have not noted any fevers at home but he has been having a dry cough for a week. He does state he is short of breath but his does not corroborate this. He thinks that the shortness of breath has been before the cough. He has not noted any fevers, no night sweats, she has not noted any fevers. He has no chest pain, no body aches with this. He has had some episodes of urinary incontinence, his wonders about a UTI as well. His chart does list a history of pyelonephritis. He is on chronic methotrexate for rheumatoid arthritis. His recently had pneumonia. This is primarily a dry cough, he is not coughing anything up. They have not noted any increased edema. He has had no nausea or vomiting, is able to eat without problems. Denies any abdominal pain. He does endorse feeling more tired, fatigued. Related Data Home Medications ?Medication ?Instructions ?Recorded ?Confirmed ascorbic acid (vitamin C) 500 mg 500 mg PO DAILY 04/15/22 10/21/24 capsule,extended release (Vitamin C) aspirin 81 mg chewable tablet 81 mg PO DAILY 04/15/22 10/21/24 clopidogrel 75 mg tablet (Plavix) 75 mg PO DAILY 04/15/22 10/21/24 gabapentin 100 mg capsule 200 mg PO QHS 04/15/22 10/21/24 (Neurontin) hydroxychloroquine 200 mg tablet 400 mg PO DAILY 04/15/22 10/21/24 (Plaquenil) methotrexate sodium 2.5 mg tablet 12.5 mg PO 2XW 04/15/22 10/21/24 nitroglycerin 0.4 mg sublingual 0.4 mg sublingual Q5-15M PRN 04/15/22 11/25/23 tablet rosuvastatin 20 mg tablet (Crestor) 20 mg PO DAILY 04/15/22 10/21/24 vitamin A-vitamin C-vit E-min 1 tab PO BID 04/15/22 10/21/24 tablet folic acid 10/21/24 Previous Rx's ?Medication ?Instructions ?Recorded amoxicillin 875 mg-potassium 1 tab PO BID #14 tabs 10/21/24 clavulanate 125 mg tablet doxycycline monohydrate 100 mg 100 mg PO BID #14 tabs 10/21/24 tablet Allergies Allergy/AdvReac Type Severity Reaction Status Date / Time leflunomide Allergy Mild Diarrhea Verified 09/12/23 13:09 Review of Systems Status of ROS: Reports: 6 or more systems reviewed and unremarkable except as noted in History and below [facility] Medical History Cognitive impairment ?R41.89 - Other symptoms and signs involving cognitive functions and awareness (ICD-10) Pruritic rash ?L28.2 - Other prurigo (ICD-10) Postoperative hemorrhage Cellulitis ?L03.90 - Cellulitis, unspecified (ICD-10) Calculus of kidney ?N20.0 - Calculus of kidney (ICD-10) Closed left ankle fracture ?S82.892A - Other fracture of left lower leg, initial encounter for closed fracture (ICD-10) NSTEMI (non-ST elevated myocardial infarction) ?I21.4 - Non-ST elevation (NSTEMI) myocardial infarction (ICD-10) Class 3 severe obesity due to excess calories with body mass index (BMI) of 40.0 to 44.9 in adult ?E66.01 - Morbid (severe) obesity due to excess calories (ICD-10) ?Z68.41 - Body mass index [BMI] 40.0-44.9, adult (ICD-10) Pyelonephritis ?N12 - Tubulo-interstitial nephritis, not specified as acute or chronic (ICD- 10) Sensorineural hearing loss (SNHL) of both ears ?H90.3 - Sensorineural hearing loss, bilateral (ICD-10) Impaired fasting glucose ?R73.01 - Impaired fasting glucose (ICD-10) Rheumatoid arthritis ?M06.9 - Rheumatoid arthritis, unspecified (ICD-10) CORY (obstructive sleep apnea) ?G47.33 - Obstructive sleep apnea (adult) (pediatric) (ICD-10) Degenerative joint disease of left knee ?M17.12 - Unilateral primary osteoarthritis, left knee (ICD-10) CAD (coronary artery disease) ?I25.10 - Atherosclerotic heart disease of [place] coronary artery without angina pectoris (ICD-10) Edema ?R60.9 - Edema, unspecified (ICD-10) Radial styloid tenosynovitis ?M65.4 - Radial styloid tenosynovitis [de [place]] (ICD-10) Lumbago ?M54.50 - Low back pain, unspecified (ICD-10) Unspecified sleep apnea ?G47.30 - Sleep apnea, unspecified (ICD-10) Other and unspecified hyperlipidemia ?E78.5 - Hyperlipidemia, unspecified (ICD-10) Unspecified essential hypertension ?I10 - Essential (primary) hypertension (ICD-10) Surgical History History of ectropion repair ?Z98.890 - Other specified postprocedural states (ICD-10) History of phacoemulsification of cataract of both eyes with intraocular lens implantation ?Z98.41 - Cataract extraction status, right eye (ICD-10) ?Z98.42 - Cataract extraction status, left eye (ICD-10) ?Z96.1 - Presence of intraocular lens (ICD-10) History of tooth extraction ?K08.409 - Partial loss of teeth, unspecified cause, unspecified class (ICD- 10) Hx of colonoscopy ?Z98.890 - Other specified postprocedural states (ICD-10) Hx of coronary artery bypass graft ?Z95.1 - Presence of aortocoronary bypass graft (ICD-10) Social History Narrative: Patient lives with his in [place]. Son lives nearby. is healthcare power of assistant city attorney. Code status is DNR. Quit smoking when he had his coronary artery bypass in 1996. Drinks alcohol about once a month. What is your current living situation?: I presently have a place to live Problems where you live: no known problems Problems where you live details: n/a In the past 12 months, utilities in danger of being shut off: no In past 12 months, lack of transportation kept you from medical appts, meetings, work, or getting things needed for daily living: no In the past 12 mos, have been you worried that your food would run out before you had money to buy more?: never true In the past 12 mos, the food you bought just didn't last and you didn't have money to buy more?: never true Highest level of school completed/degree received: high school graduate Smoking Status: Former smoker What tobacco products do you use: cigarettes Smoking packs per day: 1.5 Smoking cigarettes per day: 30.0 Years smoked: 35 Smoking pack-years: 52.50 Smoking quit date/years: >15 years ago and pipe Do you use any of these nicotine containing products: None Second hand tobacco smoke exposure: No How often do you have a drink containing alcohol: monthly or less Alcohol type: beer and wine How many standard drinks containing alcohol do you have on a typical day: 1 or 2 How often do you have six or more drinks on one occasion: Never AUDIT-C Alcohol total score: 1 Non-prescribed substance use: denies use Caffeine: Yes (RARE) How often does anyone, including family, friends and others, physically hurt you : never How often does anyone, including family, friends and others, insult or talk down to you: never How often does anyone, including family, friends and others, threaten you with harm: never How often does anyone, including family, friends and others, scream or curse at you: never service: No Exam Const: Vital Signs, click to edit/add: Vital Signs - 24 hr 10/21/24 10:27 10/21/24 11:44 10/21/24 11:45 Temperature 98 F Pulse Rate 78 77 Pulse Rate [Pulse Oximeter] 81 Respiratory Rate 22 Blood Pressure [Ri ght Upper Arm] 95/67 Pulse Oximetry 93 93 91 Oxygen Delivery Me thod Room Air 10/21/24 12:00 10/21/24 12:15 10/21/24 12:31 Temperature Pulse Rate 75 77 78 Pulse Rate [Pulse Oximeter] Respiratory Rate 22 Blood Pressure [Ri ght Upper Arm] Pulse Oximetry 91 93 95 Oxygen Delivery Me thod This 79-year-old male is alert, interactive, lying comfortably in the exam bed in room 2. He is breathing easily on room air. Sclera clear, symmetrical facial function, able speak in complete sentences. No tachypnea noted. No hoarseness to his voice. Neck is thick but do think jugular venous distension may go to the angle of the jaw. Certainly do not feel any adenopathy of his neck, thyroid seems normal. He is able to sit up on his own, has definite abnormal lung sounds left base posteriorly with some crackles and rhonchi. He is clear in the upper left lung field in clear through his right lung field posteriorly. CV regular rate and rhythm, no murmur heard, normal S1-S2. Abdomen is obese but soft, nontender, nondistended, no organomegaly. He has no pretibial edema of his lower extremities, calves nontender. Documenting provider has reviewed patient's vital signs: yes Course Course ED Course: Will obtain urinalysis given episodes of urinary incontinence. Do wonder if it could be cough associated with increased abdominal pressure and some leakage but urinalysis should answer that question easy enough. He does have a dry cough once when I am in with him, does sound dry. Will start with a portable chest x- ray to see if there is pneumonia or potential effusion. This certainly could be infectious, nursing staff had appropriately collected triple viral swab. He is not complaining of fevers or night sweats. Will get appropriate labs, does not have indications for blood cultures at this time. He is not hypoxic, not tachycardic, doubt that symptoms are from thromboembolic disease. Will get an EKG and troponin as he does have rheumatoid arthritis, history of coronary artery disease. Do not know if patient has any pulmonary fibrosis which could b e a complication methotrexate use. Reevaluation(s) Time of Reevaluation #1: 12:14 Reevaluation #1: Updated that the chest x-ray is not showing any pathology, no evidence of cardiac ischemia with normal troponin, triple viral swab is negative. Will proceed with CT chest non-contrast to ensure that there is no pneumonia, CT is much more sensitive for this and they agree with proceeding with this imaging. He is still trying to provide UA. Time of Reevaluation #2: 13:31 Reevaluation #2: Have reviewed CT findings. We did discuss the pulmonary fibrosis, superimposed pneumonia as well as possible right upper lobe lesion which will require follow- up. Copy of CT imaging provided. His curb 65 score is low risk. His systolic blood pressure just prior to discharge was low 100s. They both feel comfortable going home, he is not hypoxic. Does not require hospitalization and actually feels stable to go home. We will initiate antibiotics, coverage with Augmentin and Z-Roscoe. (Note: Patient is noted to be on Plaquenil, did switch antibiotic coverage to doxycycline from the Z-Roscoe for concerns of QT prolongation.) Vital Signs Vital signs: Initial Vital Signs Temperature 98 F 10/21/24 10:27 Temperature Source Temporal Artery Scan 10/21/24 10:27 Pulse Rate 81 10/21/24 10:27 Respiratory Rate 22 10/21/24 10:27 Blood Pressure 95/67 10/21/24 10:27 Blood Pressure Mean 76 10/21/24 10:27 Blood Pressure Position Sitting 10/21/24 10:27 Pulse Oximetry 93 10/21/24 10:27 Oxygen Delivery Method Room Air 10/21/24 10:27 Vital Signs Temperature 98 F 10/21/24 10:27 Pulse Rate 81 10/21/24 10:27 Respiratory Rate 22 10/21/24 10:27 Blood Pressure 95/67 10/21/24 10:27 Pulse Oximetry 93 10/21/24 10:27 Oxygen Delivery Method Room Air 10/21/24 10:27 Temperature 98 F 10/21/24 10:27 Pulse Rate 78 10/21/24 12:31 Respiratory Rate 22 10/21/24 12:31 Blood Pressure 95/67 10/21/24 10:27 Pulse Oximetry 95 10/21/24 12:31 Oxygen Delivery Method Room Air 10/21/24 10:27 Medical Decision Making Lab Data Lab results reviewed: Yes I reviewed the patient's lab results Labs: Lab Results 10/21/24 10/21/24 10/21/24 Range/Units 10:42 11:20 12:30 WBC 14.44 H (4.50-11.00) K/uL RBC 4.03 L (4.30-5.90) m/uL Hgb 12.8 L (13.5-17.5) gm/dL Hct 38.4 (37.0-53.0) % MCV 95 (80-100) fL MCH 32 (26-34) pg MCHC 33 (32-36) gm/dL RDW Coeff of Tim 14.3 (11.5-15.5) % Plt Count 382 (140-440) K/uL Neut % (Auto) 83.1 H (42.0-72.0) % Lymph % (Auto) 9.2 L (20-44) % [place] % (Auto) 5.2 (0.0-11.0) % Eos % (Auto) 1.8 (0.0-7.0) % Baso % (Auto) 0.1 (0.0-3.0) % Neut # (Auto) 12.00 H (1.7-7.0) K/uL Lymph # (Auto) 1.30 (0.90-2.90) K/uL [place] # (Auto) 0.80 (0.00-0.90) K/UL Eos # (Auto) 0.30 (0.00-0.50) K/uL Baso # (Auto) 0.00 (0.00-0.30) K/uL Abs Immat Gran (auto) 0.10 (0.00-0.30) K/uL Imm/Tot Granulo (auto) 0.6 % VBG pH 7.448 H (7.32-7.43) VBG pCO2 42 (40-50) mmHG VBG pO2 < 30.1 (25-47) mmHG VBG HCO3 29 H (21-28) mmol/L Sodium 135 (135-149) mmol/L Potassium 3.5 L (3.6-5.1) mmol/L Chloride 99 (96-114) mmol/L Carbon Dioxide 28 (20-32) mmol/L Anion Gap 8 (7-15) mEq/L BUN 13 (7-30) mg/dL Creatinine 0.7 (0.5-1.5) mg/dL Estimated Creat Clear 61.85 Estimated GFR 94 ml/min Glucose 119 H (60-115) mg/dL Lactate 1.4 (0.5-1.9) mmol/L Calcium 8.8 (8.4-10.6) mg/dL Total Bilirubin 0.7 (0.1-1.5) mg/dL AST 29 (12-35) U/L ALT 22 (4-50) U/L Alkaline Phosphatase 81 (40-150) U/L Troponin I < 0.01 (0.01-0.04) ng/mL C-Reactive Protein 19.1 H (0.5-1.0) mg/dL NT-Pro-B Natriuret Pep 399 pg/mL Total Protein 7.3 (6.0-8.3) g/dL Albumin 3.9 (3.3-5.0) g/dL Urine Color Yellow (Yellow) Urine Appearance Clear (Clear) Urine pH 5.5 (5.0-8.5) Ur Specific [place] >= 1.030 (1.000-1.030) Urine Protein 1+ A (Negative) Urine Glucose (UA) Negative (Negative) Urine Ketones Negative (Negative) Urine Blood Negative (Negative) Urine Nitrite Negative (Negative) Urine Bilirubin Negative (Negative) Urine Urobilinogen 1.0 (0.2-1.0) Ur Leukocyte Esterase Negative (Negative) Urine RBC 0-2 (0-2) Urine WBC 0-2 (0-5) Ur Squamous Epith Cells Few (None-Few) Amorphous Sediment Moderate A (None) Urine Bacteria Moderate A (None) Urine Mucus Moderate A (None) SARS-CoV-2 (PCR) Negative SARS-CoV-2 (Negative) Influenza Type A (PCR) Negative PCR FLU A (Negative) Influenza Type B (PCR) Negative PCR FLU B (Negative) RSV (PCR) Negative PCR RSV (Negative) Imaging Data Chest x-ray: Attestation: I have reviewed the pertinent imaging results. Radiologist's impression: Patient: ISAAC DOHERTY Facility:[facility] Patient ID:?[id number] Site Patient ID:?[id number]. Site :?1945 Study:?XRay-Chest 1 VIEW PORTABLE-10/21/2024 11:29:52 AM Ordering Physician:Ori Vogt Final Report: INDICATION : Cough abnormal lung sounds left base. TECHNIQUE : Chest portable COMPARISON: 04/19/2021 FINDINGS : Rotated. Asymmetric slightly prominent markings in the left lung likely from rotation and no significant change. No dense consolidation. No signs of pleural fluid or pneumothorax. Stable cardiomegaly with postoperative changes of prior sternotomy. IMPRESSION : Stable chest. Prior sternotomy, no signs of pulmonary consolidation. Dictated by Hernandez Hutton MD @ 10/21/2024 11:40:28 AM (Electronic Signature) CT scan - chest: Attestation: I have reviewed the pertinent imaging results. Radiologist's impression: Patient: ISAAC DOHERTY Facility:?[facility] Patient ID:?[id number] Site Patient ID:?[id number]. Site :?[id number] Study:?CT-Chest WITHOUT-10/21/2024 12:55:31 PM Ordering Physician:Ori Vogt Final Report: Indication: Cough, elevated white blood cell count Technique: Volumetric multidetector CT images of the chest were obtained without the administration of IV contrast. Comparison: CT chest April 19, 2021 Findings: The thoracic inlet is grossly unremarkable. 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 There is no mediastinal, hilar or axillary adenopathy. There is moderate central bronchial thickening with increasing traction bronchiectasis within the peripheral left upper, left lower and right upper lobes predominantly. There is overall increasing honeycomb fibrosis within the left upper lobe and left lower lobes with likely superimposed airspace opacity in the left lower lobe commensurate with developing infiltrates. Additional pulmonary fibrotic changes along the peripheral bilateral upper lobes are appreciated. There is demonstration of focal somewhat spiculated appearing nodular consolidation with the largest portion measuring 1.6 x 2.3 centimeters in greatest axial dimension best appreciated on series 2, image 35. The partially visualized upper abdominal viscera are within normal limits. The thoracic vertebral body heights are grossly maintained with minimal endplate Schmorl`s defects. There is no significant spondylolisthesis or displaced fracture. Impression: 1. Overall worsening pulmonary fibrotic changes predominantly within the left upper greater than lower lobes from previous exam with chronic consolidation, air bronchograms with superimposed airspace opacity in the left lower lobe likely representing infiltrates. 2. Demonstration of a new pulmonary mass within the peripheral right upper lobe for which additional follow-up with short-term interval repeat exam in 3 months is recommended as a developing lung neoplasm is not excluded. Please note that all CT scans at this facility use dose modulation, iterative reconstruction, and/or weight-based dosing when appropriate to reduce radiation dose to as low as reasonably achievable. Dictated by Sudeep Batista MD @ 10/21/2024 1:15:28 PM (Electronic Signature) ECG Data Attestation: I personally reviewed and interpreted this ECG as follows: (Normal sinus rhythm, poor R-wave progression anterior precordial leads/Q-waves. No active ST or T-wave changes indicative of any acute ischemia. Rate is 75 beats per minute.) Prior ECG tracings: not available for review (cannot pull up actual EKG but can see report states anterior infarct from 2020 in [facility]) Discharge Plan Discharge Clinical Impression: Pulmonary fibrosis, Mass of right lung Community acquired pneumonia Qualifiers: Laterality: left Lung location: lower lobe of lung Qualified Code(s): J18.9 - Pneumonia, unspecified organism Patient Disposition: Home, Self-Care Condition: Stable Instructions: Pulmonary Fibrosis (ED), Community Acquired Pneumonia (ED) Additional Instructions: Need to start antibiotics today and take as prescribed. If you are worsening as we discussed, return to the ER. Otherwise, schedule a clinic followup within the next week for recheck. Please bring CT copy to that visit. Your primary provider will need to order follow-up CT as recommended by the radiologist to follow this right lung lesion. We will notify you if urine culture is showing anything that is not potentially covered by the antibiotic ointment. Activity Level: Activity as Tolerated Prescriptions: New amoxicillin-pot clavulanate 875-125 mg tablet 1 tab PO BID Qty: 14 0RF doxycycline monohydrate 100 mg tablet 100 mg PO BID Qty: 14 0RF No Action ascorbic acid (vitamin C) [Vitamin C] 500 mg capsule, extended release 500 mg PO DAILY aspirin 81 mg tablet,chewable 81 mg PO DAILY clopidogrel [Plavix] 75 mg tablet 75 mg PO DAILY gabapentin [Neurontin] 100 mg capsule 200 mg PO QHS hydroxychloroquine [Plaquenil] 200 mg tablet 400 mg PO DAILY methotrexate sodium 2.5 mg tablet 12.5 mg PO 2XW Rx Instructions: TAKE 5 TABLETS (12.5MG) ON MONDAY, AND 4 TABLETS (10MG) ON MONDAY. TOTAL WEEKLY DOSE = 22.5MG nitroglycerin 0.4 mg tablet, sublingual 0.4 mg sublingual Q5-15M PRN Rx Instructions: do not exceed 3 doses per episode rosuvastatin [Crestor] 20 mg tablet 20 mg PO DAILY vitamin A-vitamin C-vit E-min Tablet 1 tab PO BID folic acid Follow Up/Referrals: Charline Wyatt MD [Primary Care Provider] - Stand Alone Forms: freshbag Info Instructions
--- NOTE | 2024-10-21 10:59 | CRLHL7_ITS ---
For Patients: As a result of the Cures Act, medical imaging exams and procedure reports are released immediately into your electronic medical record. You may view this report before your referring provider. If you have questions, please contact your health care provider. INDICATION : Cough abnormal lung sounds left base. TECHNIQUE : Chest portable COMPARISON: 04/19/2021 FINDINGS : Rotated. Asymmetric slightly prominent markings in the left lung likely from rotation and no significant change. No dense consolidation. No signs of pleural fluid or pneumothorax. Stable cardiomegaly with postoperative changes of prior sternotomy. IMPRESSION : Stable chest. Prior sternotomy, no signs of pulmonary consolidation. Dictated by Hernandez Hutton MD @ 10/21/2024 11:40:28 AM (Electronically Signed)
[2024-10-21 11:24] LABS: PCR FLU A Negative PCR FLU A (Negative); PCR FLU B Negative PCR FLU B (Negative); PCR RSV Negative PCR RSV (Negative); SARS PCR* Negative SARS-CoV-2 (Negative)
[2024-10-21 11:29] LABS: HCO3 VBG 29 mmol/L (21-28); Lactate* 1.4 mmol/L (0.5-1.9); PCO2 VBG 42 mmHG (40-50); PO2 VBG < 30.1 mmHG (25-47); pH VBG 7.448 (7.32-7.43)
--- OUTSIDE RECORDS SUMMARY | 2024-10-21 11:31 | XMS_ITS | Clinical Summary ---
Author Organization Formerly [facility] Address [address] [place] [address] Care Team Providers Care History Card Clerk Name Role Phone Mel Delacruz MD Primary [...] for each transition of care or referral. 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 [place] [address] Luigi Menon MD from Last 3 Months Immunizations Immunization Administration Dates Next Due Flu Vac (3+ yrs) 05/30/2013, 1,05/14/2010,2008,04/17/2008,05/11/2007,05/23/2006,1 Flu Vac Preserv Free (3+yrs) 04/15/2011 Influenza IIV3 (Trivalent) Sera Agu[place]ose, 65+ Yrs (81545) 04/28/2016,03/30/2015,04/02/2014 Influenza IIV4 (Quadrivalent ) 0.5mL (50353) 04/05/2019 Influenza IIV4 (Quadrivalent ) Fluad, 65+ [...] Comments Blood Pressure 107/67 05/22/2024 1:44 PM HUMAN RESOURCES COMPLIANCE MANAGER Pulse 51 05/22/2024 1:44 PM HUMAN RESOURCES COMPLIANCE MANAGER Temperature 36 C (96.8 F) 05/09/2022 2:05 PM CDT Respiratory Rate - - Oxygen Saturation - - Inhaled Oxygen Concentration - - Weight 103.9 kg (229 lb) 05/22/2024 1:44 PM HUMAN RESOURCES COMPLIANCE MANAGER Height 174 cm (5' 8.5) 10/22/2018 1:18 [...] COMPLETE BLOOD COUNT-W/DIFF Routine 08/29/2024 1:55 PM HUMAN RESOURCES COMPLIANCE MANAGER 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) CBC AND DIFFERENTIAL PANEL Routine 08/29/2024 1:55 PM HUMAN RESOURCES COMPLIANCE MANAGER 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) AST Routine 08/29/2024 1:55 PM HUMAN RESOURCES COMPLIANCE MANAGER 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) CREATININE / GFR Routine 08/29/2024 1:55 PM HUMAN RESOURCES COMPLIANCE MANAGER 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) from Last 3 Months Results * (ABNORMAL) Creatinine / GFR (08/29/2024 1:55 PM HUMAN RESOURCES COMPLIANCE MANAGER) Pathologist [facility] Creatinine 0.63(L) 0.73 - 1.18 mg/dL 08/29/2024 3:02 PM [facility] GFR, Estimated >60 >60 mL/min/1.7 3m2 08/29/2024 3:02 PM [facility] Blood Venipuncture / Unknown 08/29/2024 1:55 PM HUMAN RESOURCES COMPLIANCE MANAGER 08/29/2024 1:55 PM HUMAN RESOURCES COMPLIANCE MANAGER Luigi Menon MD LAB_1 Final Result Performing Organization Address City/State/[facility] Co de Phone Number [facility] [address] [place] [address] * Complete Blood Count-W/Diff (08/29/2024 1:55 PM HUMAN RESOURCES COMPLIANCE MANAGER) Pathologist [facility] WBC 6.3 3.5 - 10.5 x10(9)/L 08/29/2024 2:28 PM [facility] RBC 4.36 4.32 - 5.72 x10(12)/L 08/29/2024 2:28 PM [facility] Hemoglobin 13.8 13.5 - 17.5 g/dL 08/29/2024 2:28 PM [facility] HCT 42.0 38.8 - 50.0 % 08/29/2024 2:28 PM [facility] MCV 96.3 80.0 - 100.0 fL 08/29/2024 2:28 PM [facility] MCH 31.7 27.6 - 33.3 pg 08/29/2024 2:28 PM [facility] MCHC 32.9 31.5 - 35.2 g/dL 08/29/2024 2:28 PM [facility] RDW 15.0 11.9 - 15.5 % 08/29/2024 2:28 PM [facility] Platelets 203 150 - 450 x10(9)/L 08/29/2024 2:28 PM [facility] Automated NRBC 0 <=0 /100 WBC 08/29/2024 2:28 PM [facility] Neutrophil Absolute 3.5 1.7 - 7.0 10(9)/L 08/29/2024 2:28 PM [facility] Lymphocyte Absolute 1.8 1.0 - 4.8 10(9)/L 08/29/2024 2:28 PM [facility] Monocyte Absolute 0.7 0.2 - 0.9 10(9)/L 08/29/2024 2:28 PM [facility] Eosinophil Absolute 0.2 0.0 - 0.5 10(9)/L 08/29/2024 2:28 PM [facility] Basophil Absolute 0.0 0.0 - 0.3 10(9)/L 08/29/2024 2:28 PM [facility] Immature Granulocyte % 0.3 0.0 - 0.5 % 08/29/2024 2:28 PM [facility] Blood Venipuncture / Unknown 08/29/2024 1:55 PM HUMAN RESOURCES COMPLIANCE MANAGER 08/29/2024 1:55 PM HUMAN RESOURCES COMPLIANCE MANAGER Luigi Menon MD LAB_1 Final Result Performing Organization Address [facility] de Phone Number [facility] [address] [place] [address] * AST (08/29/2024 1:55 PM HUMAN RESOURCES COMPLIANCE MANAGER) Pathologist [facility] AST (SGOT) 36 10 - 40 U/L 08/29/2024 3:02 PM [facility] Blood Venipuncture / Unknown 08/29/2024 1:55 PM HUMAN RESOURCES COMPLIANCE MANAGER 08/29/2024 1:55 PM HUMAN RESOURCES COMPLIANCE MANAGER us Luigi Menon MD LAB_1 Final Result [facility] [address] [place] [address], [facility] from Last 3 Months Insurance MEDICARE PART A [facility] Care Teams History Card Clerk Relationship Specialty Start Date End Date Mel Delacruz MD [address] [place] [address] PCP - General 10/18/10
--- OUTSIDE RECORDS SUMMARY | 2024-10-21 11:31 | XMS_ITS | Clinical Summary ---
Author Organization [facility] Address [address] [address] Care Team Providers Care Community Placement Worker Name Role Phone Charline Wyatt MD Primary Care Provider Luigi Menon Unavailable [phone] Allergies Active Allergy Reactions Criticality Noted Date Comments Leflunomide Diarrhea,Other - Samm cribe In Comment Field 01/27/2016 Medications folic acid 800 mcg tablet Take 1 tablet by mouth once daily. 0 10/29/19 10 Active acetaminophen (TYLENOL EXTRA STRENGTH) 500 mg tablet Take 1,000 mg by mouth 2 times daily. Max acetaminophen dose: 4000mg in 24 hrs. Active miscellaneous medical supply [facility] FOR HOME USE 09/10/19 19 Active methotrexate [...] as needed. 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 Place 1 Tablet [...] Description 10/21/2024 9:30 AM CDT Office Visit [facility] [address] [facility] [address] Osmani Mora MD Sleep Follow-up (cpap) 10/21/2024 8:15 AM CDT Ancillary Procedure [facility] [address] [facility] [address] Arrived 10/21/2024 Travel 09/24/2024 10:30 AM CDT Office Visit [facility] [address] [facility] [address] Abigail Hernandez AuD Hearing Problem (Hearing test) 09/24/2024 Travel 09/19/2024 Telephone [facility] [address] [facility] [place] [address] Charline Wyatt MD Referral (Audiological Evaluation) from [...] Brother 1 Brother 2 Father (Age 57) CT Maternal Grandfather Maternal Grandmother old ag e [...] on file Legal Sex Male 6:13 AM CROCHET BEADER Gender Identity Not on file Sexual Orientation [...] CDT Respiratory Rate 20 06/30/2021 1:35 PM CROCHET BEADER Oxygen Saturation 95% 10/21/2024 9:08 AM CDT Inhaled Oxygen Concentration - - Weight 105.2 kg (232 lb) 06/20/2024 10:00 AM CROCHET BEADER Height 172.7 cm (5' 8) 06/20/2024 10:00 AM CROCHET BEADER Body Mass Index 35.28 06/20/2024 10:00 AM CROCHET BEADER Plan of Treatment Upcoming Encounters Date Type Department Care Team (Late st Contact Info) Description 10/28/2024 2:20 PM CDT Office Visit [address] [phone] Ethan Ferguson MD [address] [place] [address] Health Maintenance Due Date Last Done Comments [...] Completed 06/20/2024 Medical Devices Implanted Type Area Rn Integrity Device Identifier Shelf Expiration Date Model / Serial / Lot Stent Uret [id number] Contour - [id number] Implanted:Qty: 1 on 07/21/2019 by Facundo Montoya MD at [facility] Left: Ureter BS Urology 01/16/2022 [id number] 0# / / [id number] Stent Uret [id number] Contour - [id number] Implanted:Qty: 1 on 08/05/2019 by Facundo Montoya MD at [facility] Left: Ureter BS Urology [id number] 0# / / [id number] Procedures Procedure Name Priority Date/Time Associated Diagnosis Comments ANTI HCV Add On 07/29/2020 1:40 PM CROCHET BEADER Need for hepatitis C screening test from Last 3 Months or Most Recently Relevant to Health Maintenance Results * ANTI HCV (07/29/2020 1:40 PM CROCHET BEADER) HEPATITIS C ANTIBODY Non-React ismael Non-React ismael 07/30/2020 4:39 PM CROCHET BEADER [facility] Comment:Antibodies to HCV no t detected; does not exclude the possibility of exposure to HCV. Blood BLOOD SPECIMEN / Unknown Venipuncture / Unknown 07/29/2020 1:40 PM CROCHET BEADER 07/29/2020 1:40 PM CROCHET BEADER us Charline Wyatt MD SEND OUTS Final R esult [facility] [address] [place] [address], [place] from Last 3 Months or Most Recently Relevant to Health Maintenance Insurance [facility] MEDICARE PART A HB ONLY MEDICARE PART A HB ONLY Advance Directives Documents on File Type Date Recorded Patient Physical Therapy Aide Expl anation Healthcare Directive 03/30/2023 10:23 AM [...] Comments Code Status Discussion: Discussed Care Teams Community Placement Worker Relationship Specialty Start Date End Date Charline Wyatt MD [address] [place] [address] PCP - General 03/30/10 Luigi Menon [address] [place] [address] Rheumatology 12/28/22
--- OUTSIDE RECORDS SUMMARY | 2024-10-21 11:31 | XMS_ITS | Encounter Summary ---
Author Organization [facility] Address [address], [place] [address] Care Team Providers Care Director Of Land Name Role Phone Mel Delacruz MD Primary Care Pr ovider Encounter Details Date Type Department Care Team (Late st Contact Info) Description 08/29/2024 Results Follow-Up Rheumatology at [address] [place], [place] [id number] Luigi Menon MD [address] [place] [phone] Social History Tobacco Use Types Packs/Day Years [...] on filedocumented in this encounter Care Teams Director Of Land Relationship Specialty Start Date End Date Mel Delacruz MD [address] [place] [id number] PCP - General 10/18/10 documented as of this encounter
[2024-10-21 11:35] LABS: Potassium* 3.5 mmol/L (3.6-5.1)
[2024-10-21 11:52] LABS: Albumin* 3.9 g/dL (3.3-5.0); Chloride* 99 mmol/L (96-114); Sodium* 135 mmol/L (135-149)
[2024-10-21 11:54] LABS: Basophils Percent Auto 0.1 % (0.0-3.0); Eosinophils Percent Auto 1.8 % (0.0-7.0); Hematocrit 38.4 % (37.0-53.0); Hemoglobin* 12.8 gm/dL (13.5-17.5); Immature Granulocytes Pct Auto 0.6 %; Lymphocytes Percent Auto 9.2 % (20-44); Mean Corpuscular HGB Conc 33 gm/dL (32-36); Mean Corpuscular Hemoglobin 32 pg (26-34); Mean Corpuscular Volume 95 fL (80-100); Monocytes Percent Auto 5.2 % (0.0-11.0); Neutrophils Percent Auto 83.1 % (42.0-72.0); Platelet Count* 382 K/uL (140-440); RDW Coefficient of Variation % 14.3 % (11.5-15.5); Red Blood Count 4.03 m/uL (4.30-5.90); White Blood Count* 14.44 K/uL (4.50-11.00)
[2024-10-21 11:55] LABS: Alanine Aminotransferase* 22 U/L (4-50); Alkaline Phosphatase* 81 U/L (40-150); Anion Gap 8 mEq/L (7-15); Aspartate Amino Transferase* 29 U/L (12-35); Bilirubin Total* 0.7 mg/dL (0.1-1.5); Blood Urea Nitrogen* 13 mg/dL (7-30); Calcium* 8.8 mg/dL (8.4-10.6); Carbon Dioxide* 28 mmol/L (20-32); Creatinine* 0.7 mg/dL (0.5-1.5); Est. Creatinine Clearance* 61.85; Estimated Glomerular Filt Rate 94 ml/min; Glucose* 119 mg/dL (60-115); Total Protein* 7.3 g/dL (6.0-8.3)
[2024-10-21 11:59] LABS: Slide Review Reflex No
[2024-10-21 12:11] LABS: NT Pro B Type NatriureticPept* 399 pg/mL; Troponin I* < 0.01 ng/mL (0.01-0.04)
[2024-10-21 12:12] LABS: C Reactive Protein* 19.1 mg/dL (0.5-1.0)
--- NOTE | 2024-10-21 12:13 | CRLHL7_ITS ---
For Patients: As a result of the Century Cures Act, medical imaging exams and procedure reports are released immediately into your electronic medical record. You may view this report before your referring provider. If you have questions, please contact your health care provider. Indication: Cough, elevated white blood cell count Technique: Volumetric multidetector CT images of the chest were obtained without the administration of IV contrast. Comparison: CT chest April 19, 2021 Findings: The thoracic inlet is grossly unremarkable. 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 There is no mediastinal, hilar or axillary adenopathy. There is moderate central bronchial thickening with increasing traction bronchiectasis within the peripheral left upper, left lower and right upper lobes predominantly. There is overall increasing honeycomb fibrosis within the left upper lobe and left lower lobes with likely superimposed airspace opacity in the left lower lobe commensurate with developing infiltrates. Additional pulmonary fibrotic changes along the peripheral bilateral upper lobes are appreciated. There is demonstration of focal somewhat spiculated appearing nodular consolidation with the largest portion measuring 1.6 x 2.3 centimeters in greatest axial dimension best appreciated on series 2, image 35. The partially visualized upper abdominal viscera are within normal limits. The thoracic vertebral body heights are grossly maintained with minimal endplate Schmorl`s defects. There is no significant spondylolisthesis or displaced fracture. Impression: 1. Overall worsening pulmonary fibrotic changes predominantly within the left upper greater than lower lobes from previous exam with chronic consolidation, air bronchograms with superimposed airspace opacity in the left lower lobe likely representing infiltrates. 2. Demonstration of a new pulmonary mass within the peripheral right upper lobe for which additional follow-up with short-term interval repeat exam in 3 months is recommended as a developing lung neoplasm is not excluded. Please note that all CT scans at this facility use dose modulation, iterative reconstruction, and/or weight-based dosing when appropriate to reduce radiation dose to as low as reasonably achievable. Dictated by Sudeep Batista MD @ 10/21/2024 1:15:28 PM (Electronically Signed)
[2024-10-21 12:42] LABS: Appearance Urine Clear (Clear); Bilirubin Urine Negative (Negative); Blood Urine Negative (Negative); Color Urine Yellow (Yellow); Glucose Urine Negative (Negative); Ketones Urine Negative (Negative); Leukocyte Esterase Urine Negative (Negative); Nitrite Urine Negative (Negative); Protein Urine 1+ (Negative); Specific Gravity Urine >= 1.030 (1.000-1.030); pH Urine 5.5 (5.0-8.5)
[2024-10-21 12:50] LABS: Amorphous Sediment Urine Moderate; Bacteria Urine Moderate; Mucus Urine Moderate; RBC Urine 0-2 (0-2); Squamous Epithelial Cell Urine Few (None-Few); WBC Urine 0-2 (0-5)
== END 2024-10-21 13:55 | disposition home or self-care (01) ==
PROVIDERS: Emergency Provider Family Medicine; PCP Family Medicine
DX: J18.9 Pneumonia, unspecified organism (principal); J84.10 Pulmonary fibrosis, unspecified
CPT/HCPCS: 36415; 71045; 71250; 80053; 81001; 82803; 83605; 83880; 84484; 85025; 86140; 87086; 87631; 93005; 94761; 99284; 99285